=== PATIENT | female | born 1965 | race Caucasian/White ===

== ENCOUNTER 2019-09-27 11:21 | Outpatient (CLI) | payer MEDICARE, MEDICAID, SELFPAY ==
--- NOTE | 2019-09-27 | CT_ITS ---
[facility] [address] [place] [address] XRay Report Cancelled Patient: Ana Rosa Bay MR#: [id number] : 1965 Acct:[id number] Age/Sex: 54 / F ADM Date: 09/27/19 Loc: RADWPI Attending Dr: Frederick ORLANDO Ordering Physician: Date of Service: Procedure(s): Accession Number(s): Report Number: [id number] CT ABDOMEN AND PELVIS NONCONTRAST HISTORY: Adrenal nodule follow-up. TECHNIQUE: Imaging performed through the abdomen and pelvis. Coronal and sagittal reformats are submitted. All CT scans at [facility] use at least one of these dose optimization techniques: automated exposure control; mA and/or kV adjustment per patient size (includes targeted exams where dose is matched to clinical indication); or iterative reconstruction. DLP: 1031.75 mGy-cm. COMPARISON: 01/15/2019 and 08/10/2012 Lower thorax: Lung bases are clear. No hiatal hernia. Liver: Normal, no mass or intrahepatic dilatation. Gallbladder: Unremarkable. Pancreas: Normal. Spleen: Normal. Adrenal glands: Normal RIGHT adrenal gland. Nodule adjacent to the LEFT adrenal gland and spleen is probably a splenule. On prior examinations this subcentimeter nodule has been present with similar enhancement pattern of the adjacent spleen. Right kidney: Normal size with no stones, masses or atrophy. Left kidney: Normal size with no stones, mass or atrophy. Abdominal aorta and IVC are unremarkable. No free fluid, intraperitoneal air or significant lymphadenopathy. GI tract: Medicinal tablets in the region of the cecum. Scattered diverticula throughout the colon with no evidence for acute diverticulitis. The appendix is incompletely visualized but does appear normal. Abdominal wall: Fat-containing umbilical hernia. Pelvis: Prior hysterectomy. No pelvic mass. Normal urinary bladder. Osseous structures: LEFT convex curvature the lumbar spine. No osteoblastic or osteolytic bone disease. Mild narrowing of the LEFT hip joint. IMPRESSION: 1. Long-term stability of the nodule adjacent to the LEFT adrenal gland is probably a splenule. Similar enhancement pattern noted on prior studies as the adjacent spleen. 2. Diverticulosis without acute diverticulitis. Dictated By: Kaity Castellon DO Signed By: Signed Date/Time: DD/ 1504 MTDD
== END 2019-09-27 11:22 | disposition home or self-care (01) ==
PROVIDERS: Family Provider Nurse Practitioner; PCP Nurse Practitioner; Referring Provider Nurse Practitioner; Visit Provider Nurse Practitioner
DX: E27.9 Disorder of adrenal gland, unspecified (principal); K57.90 Diverticulosis of intestine, part unspecified, without perforation or abscess without bleeding
CPT/HCPCS: 74176

== ENCOUNTER → 2019-10-03 13:08 | Outpatient (BNVA) | payer MEDICARE, SELFPAY | PROVIDERS: Family Provider Nurse Practitioner; PCP Family Medicine; Visit Provider Nurse Practitioner | DX: F43.12 Post-traumatic stress disorder, chronic (principal) | CPT/HCPCS: 99213 ==

== ENCOUNTER → 2019-11-27 10:44 | Outpatient (BNVA) | payer MEDICARE, SELFPAY | PROVIDERS: Family Provider Nurse Practitioner; PCP Family Medicine; Visit Provider Nurse Practitioner | DX: F60.3 Borderline personality disorder (principal); F43.12 Post-traumatic stress disorder, chronic | CPT/HCPCS: 99213 ==

== ENCOUNTER → 2019-12-24 17:00 | Outpatient (BNVA) | payer MEDICARE, SELFPAY | PROVIDERS: Family Provider Nurse Practitioner; PCP Family Medicine; Visit Provider Nurse Practitioner | DX: R09.89 Other specified symptoms and signs involving the circulatory and respiratory systems (principal); R05 Cough; R50.9 Fever, unspecified | CPT/HCPCS: 71046; 85025; 87400 ==

== ENCOUNTER → 2020-01-01 11:20 | Outpatient (BNVA) | payer MEDICARE, SELFPAY | PROVIDERS: Family Provider Nurse Practitioner; PCP Family Medicine; Visit Provider Social Worker | DX: F60.3 Borderline personality disorder (principal); F43.12 Post-traumatic stress disorder, chronic; F33.1 Major depressive disorder, recurrent, moderate | CPT/HCPCS: 90834 ==

== ENCOUNTER → 2020-01-28 08:14 | Outpatient (BNVA) | payer MEDICARE, MEDICAID, SELFPAY | PROVIDERS: Family Provider Nurse Practitioner; PCP Family Medicine; Visit Provider Nurse Practitioner | DX: F60.3 Borderline personality disorder (principal); F43.12 Post-traumatic stress disorder, chronic | CPT/HCPCS: 99213 ==

== ENCOUNTER → 2020-01-29 08:19 | Outpatient (BNVA) | payer MEDICARE, MEDICAID, SELFPAY | PROVIDERS: Family Provider Nurse Practitioner; PCP Family Medicine; Visit Provider Social Worker | DX: F43.12 Post-traumatic stress disorder, chronic (principal); F60.3 Borderline personality disorder | CPT/HCPCS: 90834 ==

== ENCOUNTER → 2020-02-01 11:24 | Outpatient (BNVA) | payer MEDICARE, SELFPAY | PROVIDERS: Family Provider Nurse Practitioner; PCP Family Medicine; Visit Provider Nurse Practitioner | DX: R50.9 Fever, unspecified (principal); W57.XXXA Bitten or stung by nonvenomous insect and other nonvenomous arthropods, initial encounter | CPT/HCPCS: 87400 ==

== ENCOUNTER → 2020-03-03 13:38 | Outpatient (BNVA) | payer MEDICARE, MEDICAID, SELFPAY | PROVIDERS: Family Provider Nurse Practitioner; PCP Family Medicine; Visit Provider Nurse Practitioner Family | DX: N30.00 Acute cystitis without hematuria (principal); R30.9 Painful micturition, unspecified | CPT/HCPCS: 80053; 81000; 85025 ==

== ENCOUNTER → 2020-04-28 08:32 | Outpatient (BNVA) | payer MEDICARE, SELFPAY | PROVIDERS: Family Provider Nurse Practitioner; PCP Family Medicine; Visit Provider Nurse Practitioner | DX: F60.3 Borderline personality disorder (principal); F43.12 Post-traumatic stress disorder, chronic | CPT/HCPCS: 99213 ==

== ENCOUNTER 2020-05-05 13:16 | Outpatient (CLI) | payer MEDICARE, SELFPAY ==
--- NOTE | 2020-05-05 13:36 | XRR_ITS ---
PROCEDURE INFORMATION: Exam: XR Abdomen, 1 View Exam date and time: 05/05/2020 1:36 PM Age: 54 years old Clinical indication: Condition or disease; Other: Stones TECHNIQUE: Imaging protocol: XR of the abdomen. Views: Frontal supine view of the abdomen. 1 View. COMPARISON: CT abdomen pelvis con [id number] 09/27/2019 12:06 PM FINDINGS: Gastrointestinal tract: Normal. No bowel dilation. Bones/joints: Unremarkable. There are multiple calcifications in the pelvis likely representing calcified phleboliths. XR/XR KUB [id number] IMPRESSION: No acute findings.
== END 2020-05-05 13:17 | disposition home or self-care (01) ==
LOC: RAD 13:20
PROVIDERS: PCP Nurse Practitioner; Visit Provider Urology
DX: N20.9 Urinary calculus, unspecified (principal)
CPT/HCPCS: 74018; 81001

== ENCOUNTER → 2020-06-25 16:28 | Outpatient (BNVA) | payer MEDICARE, SELFPAY | PROVIDERS: PCP Nurse Practitioner; Visit Provider Internal Medicine | DX: Z01.818 Encounter for other preprocedural examination (principal); K52.9 Noninfective gastroenteritis and colitis, unspecified; Z80.0 Family history of malignant neoplasm of digestive organs; Z79.899 Other long term (current) drug therapy | CPT/HCPCS: 82784; 83516; 84443 ==

== ENCOUNTER → 2020-06-30 11:49 | Outpatient (BNVA) | payer MEDICARE, SELFPAY | PROVIDERS: PCP Nurse Practitioner; Visit Provider Internal Medicine | DX: Z11.59 Encounter for screening for other viral diseases (principal); K52.9 Noninfective gastroenteritis and colitis, unspecified | CPT/HCPCS: 87635 ==

== ENCOUNTER 2020-07-04 09:01 | Day surgery (SDC) | payer MEDICARE, SELFPAY ==
[2020-07-01 12:28] VITALS: BMI 26.2
[2020-07-04 09:18] VITALS: BP 121/68; PULSE 81; RESP 20; TEMP 36.3; O2SAT 100
--- NOTE | 2020-07-04 09:25 | ANES.PREANE2 ---
Pre-Anesthetic Assessment Pre-Anesthetic Assessment: Height/Weight: Height 1.5 m Weight 58.967 kg Temp Pulse Resp BP Pulse Ox 97.4 F L 81 20 H 121/68 100 07/04/20 09:18 07/04/20 09:18 07/04/20 09:18 07/04/20 09:18 07/04/20 09:18 Preop Diagnosis: diar Proposed Procedure: Operation Date: 07/04/20 10:00 Proposed Procedures p EGD/colon 90923 43307 K52.9(Not Applicable) - Campos Olivares MD s Colonoscopy(Not Applicable) - Campos Olivares MD Was Beta Jake taken within 24 hours: N/A Last intake: Intake Last Liquid Date 07/03/20 Last Liquid Time 21:30 Last Solid Date 07/02/20 Last Solid Time 20:00 Social: Social History: No alcohol and No tobacco Exam: Pre-Anes Outpt Exam: alert, oriented x 3, clear to auscultation bilaterally and regular rate & rhythm Airway: Submandibular: WNL Cervical ROM: WNL MP: 1 History/ROS: No significant complaints Pulmonary: Pulmonary: None reported CV/HEM: CV/HEM: None reported : : None reported Hepatic: Hepatic: None reported GI: GI: GERD Comments: Chronic diarhhea and FH of Colon CA Metabolic: Metabolic: None reported Musc/skel: Musc/skel: None reported Neuropsych: Neuropsych: Anxiety and Bipolar Anesthetic Plan: ASA status: 2 Anesthesia: MAC PFSH Anesthesia PFSH: Medical History (Updated 06/25/20 @ 13:43 by Campos Olivares MD) Borderline personality disorder Family history of colon cancer Post-traumatic stress disorder, chronic Renal calculi Voiding dysfunction Surgical History History of basal cell cancer History of History of hysterectomy History of lumbar surgery History of tonsillectomy Family History Mother Parkinson disease Social History Smoking and tobacco status: current every day smoker cigarettes Years cigarettes smoked: 20 Second hand smoke exposure: Yes Smoking risk assessment/counseling performed?: Yes Tobacco counseling given: counseling >3 minutes Alcohol intake: never Desire information about alcohol rehabilitation?: No Counseling given: No Desire information about substance/drug rehabilitation?: No Counseling given: No Caregiver/support person: No Lives independently: Yes Household members: spouse Housing: House Marital status: Number of children: 2 service: No Current occupational status: disabled Current occupational exposures/hazards: No History of recent travel: No Current gender identity: Female Data Anesthesia Cardiac Studies: No Data to Display
[2020-07-04] MEDS: sodium chloride 0.9% 1,000 ML 30 ML IV (09:36)
--- NOTE | 2020-07-04 10:33 | W.PM.OPSUD ---
Surgery/Procedure H&P Update DATE OF PROCEDURE: July 04, 2020 DATE H&P PERFORMED: 06/25/20 PREOP DIAGNOSIS: diar PLANNED PROCEDURE: Operation Date: 07/04/20 10:00 Proposed Procedures p EGD/colon [id number] 54011 K52.9(Not Applicable) - Campos Olivares MD s Colonoscopy(Not Applicable) - Campos Olivares MD
[2020-07-04 11:06] VITALS: BP 87/55; PULSE 58; RESP 16; TEMP 36.1; O2SAT 100
--- NOTE | 2020-07-04 11:09 | ANE.PACU2 ---
Inpatient post-anesthesia follow up: Airway intact: Yes Vital signs: Temperature 97 F Pulse Rate 58 Respiratory Rate 16 Blood Pressure 87/55 Pulse Oximetry 100 Oxygen Delivery Me thod Nasal Cannula Oxygen Flow Rate 3 Fraction of Inspir ed Oxygen Hydration adequate: Yes Nausea and vomiting: No Pain level: 1 Mental status: Baseline
[2020-07-04 11:24] VITALS: BP 123/79; PULSE 59; RESP 18; O2SAT 98
== END 2020-07-04 11:36 | disposition home or self-care (01) ==
PROVIDERS: PCP Nurse Practitioner; Visit Provider Internal Medicine
PROC: 0DJ08ZZ Inspection of Upper Intestinal Tract, Via Natural or Artificial Opening Endoscopic (ICD-10-PCS; CPT 43235; principal; 2020-07-04 10:00)
PROC: 0DJD8ZZ Inspection of Lower Intestinal Tract, Via Natural or Artificial Opening Endoscopic (ICD-10-PCS; CPT 45378; 2020-07-04 10:00)
DX: R19.7 Diarrhea, unspecified (principal); Z80.0 Family history of malignant neoplasm of digestive organs; K57.30 Diverticulosis of large intestine without perforation or abscess without bleeding; K21.9 Gastro-esophageal reflux disease without esophagitis; F17.210 Nicotine dependence, cigarettes, uncomplicated
CPT/HCPCS: 12345; 43235; 45378; 82274; 83630; 87493; 87506; J2704; J7030

== ENCOUNTER → 2020-07-28 07:34 | Outpatient (BNVA) | payer MEDICARE, SELFPAY | PROVIDERS: PCP Nurse Practitioner; Visit Provider Nurse Practitioner | DX: F60.3 Borderline personality disorder (principal); F43.12 Post-traumatic stress disorder, chronic | CPT/HCPCS: 99214 ==

== ENCOUNTER → 2020-08-12 13:55 | Outpatient (BNVA) | payer MEDICARE, SELFPAY | PROVIDERS: PCP Nurse Practitioner; Visit Provider Urology | DX: N39.8 Other specified disorders of urinary system (principal); N20.0 Calculus of kidney | CPT/HCPCS: 81003 ==

== ENCOUNTER → 2020-08-15 11:27 | Outpatient (BNVA) | payer MEDICARE, SELFPAY | PROVIDERS: PCP Nurse Practitioner; Visit Provider Nurse Practitioner Family | DX: Z20.828 Contact with and (suspected) exposure to other viral communicable diseases (principal); J06.9 Acute upper respiratory infection, unspecified | CPT/HCPCS: 87635 ==

== ENCOUNTER → 2020-09-01 15:40 | Outpatient (BNVA) | payer MEDICARE, SELFPAY | PROVIDERS: PCP Nurse Practitioner; Visit Provider Nurse Practitioner Family | DX: J98.8 Other specified respiratory disorders (principal); R19.7 Diarrhea, unspecified; Z20.828 Contact with and (suspected) exposure to other viral communicable diseases | CPT/HCPCS: 85025; 87635 ==

== ENCOUNTER → 2020-09-08 08:20 | Outpatient (BNVA) | payer MEDICARE, SELFPAY | PROVIDERS: PCP Nurse Practitioner; Visit Provider Nurse Practitioner | DX: F43.12 Post-traumatic stress disorder, chronic (principal); F60.3 Borderline personality disorder | CPT/HCPCS: 99213 ==

== ENCOUNTER → 2020-09-09 16:41 | Outpatient (BNVA) | payer MEDICARE, SELFPAY | PROVIDERS: PCP Nurse Practitioner; Visit Provider Nurse Practitioner | DX: R05 Cough (principal); R69 Illness, unspecified | CPT/HCPCS: 71046; 80053; 85025; 87400 ==

== ENCOUNTER → 2020-09-10 13:55 | Outpatient (BNVA) | payer MEDICARE, SELFPAY | PROVIDERS: PCP Nurse Practitioner; Visit Provider Nurse Practitioner | DX: N39.8 Other specified disorders of urinary system (principal) | CPT/HCPCS: 81000 ==

== ENCOUNTER 2020-10-21 09:06 | Outpatient (CLI) | payer MEDICARE, SELFPAY ==
--- NOTE | 2020-10-21 09:30 | MR_ITS ---
WS: [id number] MRI HEAD WITHOUT CONTRAST TECHNIQUE: Sagittal T1, T2 axial, T2 axial FLAIR, axial and coronal T1 images, axial susceptibility w eighted imaging, axial diffusion weighted images, and coronal T2 images were obtained. CLINICAL INFORMATION: R51.9 - Headache, unspecified COMPARISON: CT May 15, 2018 FINDINGS: No evidence of restricted diffusion to suggest acute ischemia. Ventricular system and basal cisterns are patent. No hemosiderin on susceptibly weighted images. Single focus of T2 hyperintensity in the l eft frontal white matter at the vertex. No other suspicious intracranial signal abnormalities. This i s of doubtful clinical significance. Normal posterior fossa. Normal vascular flow voids at the skull base. No extra axial fluid collection s. No evidence of mass or mass effect. Paranasal sinuses and mastoid air cells are well aerated. Norm al optic chiasm and pituitary infundibulum. Temporal lobes and hippocampal formations are normal in a ppearance. No other suspicious findings. MR/MR head wo con* [id number] IMPRESSION: 1. No evidence of restricted diffusion to suggest acute ischemia. 2. Single focus of T2 hyperintensity in the left frontal white matter of doubt ful clinical significance but can be seen with migraine headaches and small ves radha changes. 3. No extra-axial fluid collections. No evidence of mass or mass effect. 4. No hemosiderin on susceptibly weighted images. 5. Temporal lobes and hippocampal formations are normal in appearance.
== END 2020-10-21 09:07 | disposition home or self-care (01) ==
LOC: RADSHAW 09:09
PROVIDERS: PCP Nurse Practitioner; Visit Provider Nurse Practitioner
DX: R51.9 Headache, unspecified (principal)
CPT/HCPCS: 70551

== ENCOUNTER 2020-11-20 09:28 | Outpatient (CLI) | payer MEDICARE, SELFPAY ==
--- NOTE | 2020-11-20 10:00 | MM_ITS ---
WS: [id number] BILATERAL SCREENING DIGITAL MAMMOGRAM WITH CAD HISTORY: Z12.39 - Encounter for other screening for malignant neoplasm of breast COMPARISON: 09/05/2019 and 07/06/2018 Bilateral CC and MLO views submitted. Computer aided detection analyzed. Breast composition: There are scattered areas of fibroglandular density. No suspicious masses, microc alcifications or architectural distortion. Benign lymph nodes in the upper-outer quadrant of each tobi ast. No suspicious mass or calcification. MM/[place] [id number] IMPRESSION: BI-RADS: 2-Benign FOLLOW UP: 1 Year Follow-up
== END 2020-11-20 09:29 | disposition home or self-care (01) ==
LOC: RADSHAW 09:29
PROVIDERS: PCP Nurse Practitioner; Visit Provider Nurse Practitioner
DX: Z12.31 Encounter for screening mammogram for malignant neoplasm of breast (principal)
CPT/HCPCS: 77067

== ENCOUNTER 2020-11-22 11:26 | Emergency (ER) | payer MEDICARE, SELFPAY ==
[2020-11-22 12:04] VITALS: BP 134/84; PULSE 84; RESP 18; TEMP 36.7; O2SAT 100; BMI 24.6
[2020-11-22] MEDS: HYDROcodone-APAP 7.5-325 mg/15 mL UDC PO (12:39)
[2020-11-22] MEDS: ondansetron 4 MG Tablet PO ×2 (12:40→15:23)
[2020-11-22] MEDS: orphenadrine 30 mg/mL Inj 2 mL 60 MG IM (12:56)
--- NOTE | 2020-11-22 13:28 | W.ED.BACK ---
HPI - Back Pain/Injury General: Chief Complaint: Back Pain/Injury Stated Complaint: SEVERE BACK PAIN Time Seen by Provider: 11/22/20 12:14 History of Present Illness: MD elicited complaint: back pain Pertinent past history: prior back pain and back surgery Onset (ago): day(s) (2-3) Timing: constant and progressively worsening Severity: moderate Similar Symptoms Previously: Yes Quality: sharp, stabbing and aching Location: lumbar spine Associated symptoms: Deny abdominal pain, chills, dysuria, fever(s), nausea or vomiting Review of Systems General: Reports: 10 or more systems reviewed and unremarkable except in HPI and below Const: Denies: fever(s), chills or diaphoresis Eyes: Denies: blurry vision or eye redness ENMT: Denies: throat pain, dental pain or disequilibrium Card: Denies: chest pain, palpitations or irregular heart rhythm Resp: Denies: dyspnea, productive cough, non-productive cough or wheezing GI: Denies: abdominal pain, nausea or vomiting : Denies: difficulty voiding or dysuria Musc: Reports: back pain; Denies: neck pain, joint pain, joint stiffness, muscle cramps or muscle weakness Skin/Breast: Denies: rash or pruritus Neuro: Denies: headache(s), weakness in extremities or behavioral changes Psych: Denies: anxiety or depression Nish/Lymph: Denies: easy bruising PFSH ED PFSH: Medical History (Updated 11/22/20 @ 16:05 by CHEYENNE Avelar) Borderline personality disorder Family history of colon cancer Post-traumatic stress disorder, chronic Renal calculi Voiding dysfunction Surgical History History of basal cell cancer History of History of hysterectomy History of lumbar surgery History of tonsillectomy Family History Mother , at age 72 Parkinson disease Cancer colon Father , at age 60 Cancer brain and liver Social History Smoking and tobacco status: current every day smoker cigarettes Years cigarettes smoked: 20 Second hand smoke exposure: Yes Smoking risk assessment/counseling performed?: Yes Tobacco counseling given: counseling >3 minutes Alcohol intake: never Desire information about alcohol rehabilitation?: No Counseling given: No Desire information about substance/drug rehabilitation?: No Counseling given: No Caregiver/support person: No Lives independently: Yes Household members: spouse Housing: House Marital status: Number of children: 2 service: No Current occupational status: disabled Current occupational exposures/hazards: No History of recent travel: No Current gender identity: Female Physical Exam Const: COMMON NORMALS: no acute distress, patient oriented x3, alert and well nourished EXAM LIMITATIONS: no altered mental status and no physical limitations GENERAL APPEARANCE: cooperative, well kempt, well developed and well hydrated NUTRITIONAL APPEARANCE: thin ORIENTATION/CONSCIOUSNESS: Yes awake, Yes oriented to person, Yes oriented to place and Yes oriented to time HENMT: COMMON NORMALS: normocephalic, atraumatic, Normal external nose present and moist oral mucous membranes HEAD & SCALP: normal to inspection, normocephalic and atraumatic NOSE: Normal external nose present MOUTH: Normal oral and palatal mucosa present, lip normal and tongue normal Eye: COMMON NORMALS: Equal, round and reactive pupils present and EOMs intact bilaterally GENERAL EYE: appearance normal, both eyes and all related structures PUPIL: Yes Equal, round and reactive pupils present Neck/C-Spine: COMMON NORMALS: full ROM, no lymphadenopathy, supple and no meningeal signs GENERAL: Yes normal visual inspection and Yes trachea midline CERVICAL SPINE: Yes cervical ROM normal, No pain with cervical ROM, No Cervical spine tenderness and No Paracervical muscle tenderness Lymph: LYMPHATIC: no lymphadenopathy noted Chest: COMMONS NORMALS: normal inspection of the chest and normal palpation of entire chest wall Resp: COMMON NORMALS: normal respiratory effort, No retractions, No use of accessory muscles and clear to auscultation bilaterally EFFORT & INSPECTION: Yes able to speak in complete sentences AUSCULTATION: clear to auscultation bilaterally Cardio: COMMON NORMALS: regular rate, regular rhythm, S1 normal heart sound present, S2 normal heart sound present and Peripheral pulses 2+ throughout RATE: regular rate RHYTHM: regular rhythm HEART SOUNDS: S1 normal heart sound present and S2 normal heart sound present PERIPHERAL PULSES: Peripheral pulses 2+ throughout GI: COMMON NORMALS: Normal to inspection, nondistended, normoactive bowel sounds present, Soft to palpation and non-tender INSPECTION: Yes normal to inspection PALPATION: Yes Soft to palpation : COMMON NORMALS: Yes no CVA tenderness BLADDER/KIDNEY EXAM: Yes no CVA tenderness Back/Pelvis: COMMON NORMALS: no CVA tenderness THORACIC SPINE/UPPER BACK: Yes normal to inspection, Yes thoracic ROM normal, No thoracic spinal tenderness, No paraspinal muscle tenderness and No paraspinal muscle spasm LUMBAR SPINE/LOWER BACK: No lumbar ROM normal, Yes ROM limited, Yes pain with ROM, No lumbar spinal tenderness, Yes paraspinal muscle tenderness Lumbar paraspinal muscle tenderness: bilateral Bilateral lumbar paraspinal muscle tenderness: L3, L4 and L5, Yes straight leg raise positive left and Yes bend over test abnormal PELVIS: Yes buttocks normal and Yes no pain with anterior-posterior compression SACROILIAC JOINTS: Yes SI joints normal Extremity: COMMON NORMALS: normal to inspection and capillary refill normal Neuro: COMMON NORMALS: patient oriented x3 and no focal motor deficits SENSORIUM/ORIENTATION: Yes alert, Yes oriented to person, Yes oriented to place and Yes oriented to time MENINGEAL SIGNS: Yes no meningeal signs SPEECH: speech normal GAIT: Yes Shuffling gait present (due to reproduced pain to the lumbar spine) MONOFILAMENT EXAM PERFORMED: Yes Monofilament Exam (small fiber function): L great toe: decreased, L 3rd toe: decreased, L 5th toe: decreased, R great toe: normal, R 3rd toe: normal and R 5th toe: normal MOTOR EXAM: Pronator motor function not present, no tremor noted and Abnormal motor strength present (3/5 LLE; 4/5 RLE) Psych: COMMON NORMALS: mental status grossly normal, Normal thought process present and cooperative APPEARANCE: Yes well kempt ACTIVITY/MOTOR BEHAVIOR: Yes appropriate eye contact THOUGHT PROCESS: Normal thought process present Skin: COMMON NORMALS: no rashes or lesions noted and turgor normal GENERAL SKIN EXAM: no rashes or lesions noted and turgor normal Course Vital Signs: Vital signs: Vital Signs Temperature 98.1 F 11/22/20 12:04 Pulse Rate 69 11/22/20 16:42 Respiratory Rate 18 11/22/20 16:42 Blood Pressure 122/82 11/22/20 16:42 Pulse Oximetry 100 11/22/20 12:04 MDM - Back Pain/Injury MDM Narrative: Medical decision making narrative: 55-year-old female patient presents to the emergency department with low back pain after lifting laundry basket working out in the yard past several days. Patient was medicated with hydrocodone and Zofran as pain was out of proportion, need for differential of cauda equina, she hurt all over. Discussed with Dr. Chacon findings with question need for MRI lumbar spine. She completed examination of the lumbar spine with recommendation to medicate for pain and reevaluate. Reevaluation with improvement of pain, patient was able to ambulate and apply pressure to soles of her feet with steady gait. Strength of 5/5 BLE, soft tissue tenderness markedly improved. She remained with midline tenderness. CT scan of the lumbar spine revealed diffuse disc bulge of L4-L5 with superimposed left paracentral disc protrusion with mild central canal narrowing. Patient received Norflex IM here in the ED which also helped pain. I discussed with patient findings of CT scan, she reports would like to hold off on MRI and follow-up with her primary care provider to see if it is needed. She suffers from chronic back pain with previous surgery. Urinalysis without urinary tract infection. Will place on prednisone, muscle relaxer and Lidoderm patch. Lidoderm patch was provided here in the ED which patient reports significant improvement of pain. Differential Diagnosis: Differential diagnosis back pain/injury: Likely lumbar radiculopathy, sciatica and strain of lumbar region Lab Data: Labs: Lab Results 11/22/20 Range/Units 13:40 Urine Color Yellow (Yellow) Urine Appearance Clear (CLEAR) Urine pH 5 (5-7) Ur Specific Gravit y 1.015 (1.005-1.030) Urine Protein Neg (Negative) Urine Glucose (UA) Norm (Normal) Urine Ketones Negative (Negative) Urine Blood Neg (Negative) Urine Nitrate Negative (Negative) Urine Bilirubin Neg (Negative) Urine Urobilinogen Norm (Negative) mg/dL Ur Leukocyte Tabby ase Negative (Negative) Imaging Data^: Other Imaging: Radiologist's impression: [facility] [address] [place] [address] CT Scan Report Signed Patient: Ana Rosa Bay Unit #: [id number] : 1965 Age/Sex: 55 / F ADM Date: 11/22/20 Loc: ER Room/Bed: Attending Dr: Ordering Provider/Ordering MD: Tammie Motley Date of Service: 11/22/20 Procedure(s): CT lumbar spine wo con* [id number] Accession Number(s): [id number] Report Number: [id number] PROCEDURE INFORMATION: Exam: CT Lumbar Spine Without Contrast Exam date and time: 11/22/2020 1:59 PM Age: 55 years old Clinical indication: Low back pain. Possible prior microdiscectomy. Complains of low back pain after bending to sisal picker laundry. Radiculopathy. TECHNIQUE: Imaging protocol: Computed tomography images of the lumbar spine without contrast. Radiation optimization: All CT scans at this facility use at least one of these dose optimization techniques: automated exposure control; mA and/or kV adjustment per patient size (includes targeted exams where dose is matched to clinical indication); or iterative reconstruction. COMPARISON: CR Lumbar Spine 2-3 views* [id number] 12/04/2018 11:37 AM RADIATION DOSE METRICS: Total DLP (mGy-cm): 1455.43 FINDINGS: There is a small rib on the left at L1. The lumbar lordosis is maintained. No acute fracture is seen. At L1-L2, the central spinal canal and neural foramina are adequately patent. At L2-L3, there is a diffuse disc bulge without significant central spinal canal narrowing. The neural foramina are adequately patent. At L3-L4, there is a diffuse disc bulge without significant central spinal canal narrowing. The neural foramina are adequately patent. At L4-L5, there is a diffuse disc bulge with superimposed left paracentral disc protrusion. There is mild central spinal canal narrowing (0.9 cm). The neural foramina are adequately patent. There is probable effacement of the left lateral recess. At L5-S1, there is a diffuse disc bulge without significant central spinal canal narrowing. The neural foramina are adequately patent. Colonic diverticulosis is seen CT/CT lumbar spine wo con* [id number] IMPRESSION: 1. There is a diffuse disc bulge at L4-L5 with superimposed left paracentral disc protrusion. There is mild central spinal canal narrowing (0.9 cm). There is probable effacement of the left lateral recess. Consider MRI for better characterization if clinically warranted. 2. No acute fracture is seen. 3. Colonic diverticulosis without evidence of acute diverticulitis. Radiation Dose CTDIVOL = (mGy): DLP = 1455.43 (mGy-cm) Dictated By: Juanjo Chavez Signed By: Juanjo Chavez Signed Date/Time: 11/22/201435 DD/ Discharge Plan Discharge Patient Disposition: Home Clinical Impression: Bulging of intervertebral disc between L4 and L5 Lumbosacral strain Qualifiers: Encounter type: initial encounter Qualified Code(s): S39.012A - Strain of muscle, fascia and tendon of lower back, initial encounter Low back strain Qualifiers: Encounter type: initial encounter Qualified Code(s): S39.012A - Strain of muscle, fascia and tendon of lower back, initial encounter Condition: Stable Prescriptions: New Lidoderm 5 % adhesive patch,medicated 1 patch topical BID PRN (Reason: back pain) Qty: 30 RF: 0 Robaxin-750 750 mg tablet 750 mg PO QID Qty: 20 RF: 0 prednisone 20 mg tablet 20 mg PO BID 5 Days Qty: 10 RF: 0 No Action cholecalciferol (vitamin D3) 1,250 mcg (50,000 unit) capsule 50,000 unit PO DAILY@0800 RF: 0 albuterol sulfate 2.5 mg/0.5 mL solution for nebulization 10 mg INHALATION Q4H PRN (Reason: Allergy Symptoms) RF: 0 sumatriptan [Imitrex] 5 mg/actuation spray,non-aerosol 20 mg INTRANASAL Q2H PRN (Reason: headaches) RF: 0 diazepam [Valium] 5 mg tablet 5 mg PO TID PRN (Reason: anxiety) Qty: 75 RF: 2 Flovent HFA 110 mcg/actuation HFA aerosol inhaler 2 puff inhalation BID Qty: 12 RF: 2 cyproheptadine 4 mg tablet 4 mg PO BEDTIME@2129 RF: 0 prazosin 5 mg capsule 5 mg PO BEDTIME@2129 RF: 0 trazodone 100 mg tablet 100 mg PO BEDTIME@2129 RF: 0 Nasonex 50 mcg/actuation spray,non-aerosol 2 spray intranasal DAILY@0800 RF: 0 propranolol 20 mg tablet 20 mg PO BID@899,2129 RF: 0 Topamax 100 mg tablet 100 mg PO BID@899,2129 RF: 0 Abilify 30 mg tablet 30 mg PO DAILY@0800 RF: 0 Cymbalta 60 mg capsule,delayed release(DR/EC) 60 mg PO DAILY@2130 RF: 0 Adult 50 Plus Probiotic 4 billion cell capsule 4,000 mmu cells PO DAILY@0800 RF: 0 Discharge Orders: Discharge ED (Routine); Ordered 11/22/20 Ordered By: Tammie Motley Referrals: Frederick Stark, [employer] [Primary Care Provider] - Discharge Diet: Usual diet Discharge Activity: Limit activity as instructed Patient Instructions: Muscle Strain (ED), Low Back Strain (ED), Acute Low Back Pain (ED), Lumbar Radiculopathy (ED), Opioid Safety Activity Restrictions/Additional Instructions: Alternate warm moist heat with cool compresses to the lower back to help with pain Do not drive or operate heavy machinery with use of Robaxin as drowsiness can occur Outpatient MRI will be ordered for you, social contact worker will contact you with an appointment time and date for MRI Return to the emergency department if you develop inability to urinate or produce bowel movement, or if urinary or bowel incontinence occurs You will need to take it easy over the next several days, back pain can last 3 to 4 weeks. Absolutely no twisting bending at the waist, no heavy lifting greater than 5 pounds or other activities that will exacerbate back pain. Take 2 extra strength Tylenol 3 times daily, 1000 mg, as needed for pain Coding Level of Care Code ED Inspector [employer] 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
--- NOTE | 2020-11-22 13:51 | CTR_ITS ---
PROCEDURE INFORMATION: Exam: CT Lumbar Spine Without Contrast Exam date and time: 11/22/2020 1:59 PM Age: 55 years old Clinical indication: Low back pain. Possible prior microdiscectomy. 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 Radiculopathy. TECHNIQUE: Imaging protocol: Computed tomography images of the lumbar spine without contrast. Radiation optimization: All CT scans at this facility use at least one of these dose optimization techniques: automated exposure control; mA and/or kV adjustment per patient size (includes targeted exams where dose is matched to clinical indication); or iterative reconstruction. COMPARISON: Lumbar Spine 2-3 views* [id number] 12/04/2018 11:37 AM RADIATION DOSE METRICS: Total DLP (mGy-cm): 1455.43 FINDINGS: There is a small rib on the left at L1. The lumbar lordosis is maintained. No acute fracture is seen. At L1-L2, the central spinal canal and neural foramina are adequately patent. At L2-L3, there is a diffuse disc bulge without significant central spinal canal narrowing. The neural foramina are adequately patent. At L3-L4, there is a diffuse disc bulge without significant central spinal canal narrowing. The neural foramina are adequately patent. At L4-L5, there is a diffuse disc bulge with superimposed left paracentral disc protrusion. There is mild central spinal canal narrowing (0.9 cm). The neural foramina are adequately patent. There is probable effacement of the left lateral recess. At L5-S1, there is a diffuse disc bulge without significant central spinal canal narrowing. The neural foramina are adequately patent. Colonic diverticulosis is seen CT/CT lumbar spine wo con* [id number] IMPRESSION: 1. There is a diffuse disc bulge at L4-L5 with superimposed left paracentral disc protrusion. There is mild central spinal canal narrowing (0.9 cm). There is probable effacement of the left lateral recess. Consider MRI for better characterization if clinically warranted. 2. No acute fracture is seen. 3. Colonic diverticulosis without evidence of acute diverticulitis. Radiation Dose CTDIVOL = (mGy): DLP = 1455.43 (mGy-cm)
[2020-11-22] MEDS: lidocaine 5% Patch 1 PATCH TOPICAL (15:20)
[2020-11-22 15:35] LABS: Add Urine Microscopic? NO
[2020-11-22 15:37] LABS: Bilirubin Urine Neg (Negative); Blood Urine Neg (Negative); Glucose Urine UA Norm (Normal); Ketones Urine Negative (Negative); Leukocyte Esterase Urine Negative (Negative); Nitrate Urine Negative (Negative); Protein Urine Neg (Negative); Specific Gravity, Urine 1.015 (1.005-1.030); Urine Appearance Clear (CLEAR); Urine Color Yellow (Yellow); Urobilinogen Urine Norm (Negative); pH Urine 5 (5-7)
[2020-11-22 16:42] VITALS: BP 122/82; PULSE 69; RESP 18
--- NOTE | 2020-11-24 14:35 | DCPLANNER ---
systems engineering manager had message to schedule an outpatient MRI for patient. systems engineering manager faxed signed order to centralized scheduling, will call for appointment information.
--- NOTE | 2020-11-26 14:11 | DCPLANNER ---
Patient had an outpatient MRI scheduled - appointment was cancelled due to patient wanting to see primary care physician.
== END 2020-11-22 16:45 | disposition home or self-care (01) ==
PROVIDERS: Emergency Provider Nurse Practitioner Family; PCP Nurse Practitioner
DX: S39.012A Strain of muscle, fascia and tendon of lower back, initial encounter (principal); M51.26 Other intervertebral disc displacement, lumbar region; F17.210 Nicotine dependence, cigarettes, uncomplicated; X58.XXXA Exposure to other specified factors, initial encounter
CPT/HCPCS: 72131; 81003; 96372; 99283; J2360; Q0162

== ENCOUNTER → 2020-12-02 07:49 | Outpatient (BNVA) | payer MEDICARE, SELFPAY | PROVIDERS: PCP Nurse Practitioner; Visit Provider Nurse Practitioner | DX: F43.12 Post-traumatic stress disorder, chronic (principal); F60.3 Borderline personality disorder | CPT/HCPCS: 99214 ==

== ENCOUNTER 2021-01-06 13:00 | Outpatient (CLI) | payer MEDICARE, SELFPAY ==
--- NOTE | 2021-01-06 13:13 | MR_ITS ---
WS: [id number] MRI LUMBAR SPINE NONCONTRAST TECHNIQUE: Sagittal T1, T2 and STIR imaging. Axial T1 and T2 imaging. CLINICAL INFORMATION: INTERVERTEBRAL DISC DISORDERS WITH RADICULOPATHY COMPARISON: CT November 22, 2020 FINDINGS: Mild lumbar curve. No acute compression. No high-grade central canal stenosis. Disc bulging worse L4- 5. L1-L2: Normal. L2-L3: Normal. L3-L4: No significant disc bulging. Mild facet arthropathy. Spinal canal and foramen are patent. L4-L5: Mild annular bulging with a small left subarticular disc protrusion. This impinges the andrey ing left L5 nerve root in the subarticular recess. Mild central canal stenosis. Mild left and no sign ificant right foraminal narrowing. Moderate facet arthropathy. L5-S1: Mild annular bulging with slight effacement of ventral thecal sac. Tapering of the thecal sac distally. Mild facet arthropathy. Spinal canal and foramen are patent. Visualized pelvic bony structures: Normal. Paravertebral soft tissues: Normal. MR/MR lumbar spine wo con* [id number] IMPRESSION: 1. Mild lumbar curve. No acute compression. No high-grade central canal stenos is. 2. Small left subarticular disc protrusion L4-5 impinges the left subarticular recess and traversing left L5 nerve root. Mild central canal stenosis. Mild le ft L4-5 foraminal narrowing. 3. Slight annular bulging L5-S1 with slight effacement of ventral thecal sac. 4. Mild facet arthropathy L3-L4 L4-L5. 5. No other significant findings.
== END 2021-01-06 13:01 | disposition home or self-care (01) ==
PROVIDERS: PCP Nurse Practitioner; Visit Provider Nurse Practitioner
DX: M51.16 Intervertebral disc disorders with radiculopathy, lumbar region (principal); M51.26 Other intervertebral disc displacement, lumbar region; M47.816 Spondylosis without myelopathy or radiculopathy, lumbar region
CPT/HCPCS: 72148

== ENCOUNTER → 2021-02-10 15:03 | Outpatient (BNVA) | payer SELFPAY | PROVIDERS: PCP Nurse Practitioner; Visit Provider Nurse Practitioner | DX: J45.909 Unspecified asthma, uncomplicated (principal) | CPT/HCPCS: 71046; 80053; 81000; 85025 ==

== ENCOUNTER → 2021-02-18 13:23 | Outpatient (BNVA) | payer MEDICARE, SELFPAY | PROVIDERS: PCP Nurse Practitioner; Visit Provider Nurse Practitioner | DX: M79.605 Pain in left leg (principal) | CPT/HCPCS: 73562; 73590 ==

== ENCOUNTER → 2021-03-02 10:47 | Outpatient (BNVA) | payer MEDICARE, SELFPAY | PROVIDERS: PCP Nurse Practitioner; Visit Provider Nurse Practitioner | DX: F43.12 Post-traumatic stress disorder, chronic (principal); F60.3 Borderline personality disorder | CPT/HCPCS: 99214 ==

== ENCOUNTER → 2021-04-01 15:55 | Outpatient (BNVA) | payer MEDICARE, SELFPAY | PROVIDERS: PCP Nurse Practitioner; Visit Provider Nurse Practitioner Family | DX: R19.7 Diarrhea, unspecified (principal); Z11.52 Encounter for screening for COVID-19; R50.9 Fever, unspecified | CPT/HCPCS: 80053; 85025; 87635 ==

== ENCOUNTER → 2021-04-02 11:04 | Outpatient (BNVA) | payer MEDICARE, SELFPAY | PROVIDERS: PCP Nurse Practitioner; Visit Provider Nurse Practitioner Family | DX: R19.7 Diarrhea, unspecified (principal); R50.9 Fever, unspecified | CPT/HCPCS: 87506 ==

== ENCOUNTER → 2021-04-09 11:12 | Outpatient (BNVA) | payer MEDICARE, SELFPAY | PROVIDERS: PCP Nurse Practitioner; Visit Provider Nurse Practitioner | DX: K58.0 Irritable bowel syndrome with diarrhea (principal) | CPT/HCPCS: 87506 ==

== ENCOUNTER → 2021-04-15 10:31 | Outpatient (BNVA) | payer MEDICARE, SELFPAY | PROVIDERS: PCP Nurse Practitioner; Visit Provider Nurse Practitioner Family | DX: Z20.822 Contact with and (suspected) exposure to COVID-19 (principal); J06.9 Acute upper respiratory infection, unspecified | CPT/HCPCS: 87635 ==

== ENCOUNTER → 2021-05-12 07:30 | Outpatient (BNVA) | payer MEDICARE, SELFPAY | PROVIDERS: PCP Nurse Practitioner; Visit Provider Nurse Practitioner | DX: F43.12 Post-traumatic stress disorder, chronic (principal); F60.3 Borderline personality disorder; R51.9 Headache, unspecified; G89.29 Other chronic pain | CPT/HCPCS: 99214 ==

== ENCOUNTER 2021-06-02 08:07 | Outpatient (CLI) | payer MEDICARE, SELFPAY ==
--- NOTE | 2021-06-02 08:30 | MM_ITS ---
WS: [id number] DIAGNOSTIC RIGHT DIGITAL MAMMOGRAM WITH CAD RIGHT breast ultrasound, limited HISTORY: N64.4 - Mastodynia, new pain RIGHT upper outer quadrant. No palpable area. COMPARISON: 11/20/2020, 08/26/2019 and 07/06/2018 Technique: CC, MLO and ML views. Spot compression RIGHT MLO and cc. Spot RIGHT MLO. Breast composition: There are scattered areas of fibroglandular density. Asymmetry in the upper-oute r quadrant of the RIGHT breast is stable. No interval change. Ultrasound will be performed in the are a of pain. RIGHT breast ultrasound, limited. Ultrasound is directed to the upper outer quadrant and the axillary tail in the area of pain. There are no masses or nodules or lymphadenopathy identified. Normal ultrasound. MM/[place] [id number] IMPRESSION: BI-RADS: 2-Benign FOLLOW UP: 1 Year Follow-up
--- NOTE | 2021-06-02 08:45 | US_ITS ---
WS: [id number] DIAGNOSTIC RIGHT DIGITAL MAMMOGRAM WITH CAD RIGHT breast ultrasound, limited HISTORY: N64.4 - Mastodynia, new pain RIGHT upper outer quadrant. No palpable area. COMPARISON: 11/20/2020, 08/26/2019 and 07/06/2018 Technique: CC, MLO and ML views. Spot compression RIGHT MLO and cc. Spot RIGHT MLO. Breast composition: There are scattered areas of fibroglandular density. Asymmetry in the upper-oute r quadrant of the RIGHT breast is stable. No interval change. Ultrasound will be performed in the are a of pain. RIGHT breast ultrasound, limited. Ultrasound is directed to the upper outer quadrant and the axillary tail in the area of pain. There are no masses or nodules or lymphadenopathy identified. Normal ultrasound. US/US breast RT limited* [id number] IMPRESSION: BI-RADS: 2-Benign FOLLOW UP: 1 Year Follow-up
== END 2021-06-02 08:08 | disposition home or self-care (01) ==
LOC: RADSHAW 08:11
PROVIDERS: PCP Nurse Practitioner; Visit Provider Nurse Practitioner
DX: N64.4 Mastodynia (principal)
CPT/HCPCS: 76642; 77065

== ENCOUNTER 2021-07-02 07:58 | Outpatient (CLI) | payer MEDICARE, SELFPAY ==
--- NOTE | 2021-07-02 09:45 | XR_ITS ---
WS: [id number] XR KUB [id number] REASON FOR EXAM: RENAL CALCULI FINDINGS: No urinary tract calculi are identified. (No urinary tract calculi on CT scan of 09/27/2019) Large number phleboliths in the pelvis predominating on the right. No other significant abnormality of the abdomen or pelvis. XR/XR KUB [id number] IMPRESSION: No urinary tract calculi.
== END 2021-07-02 07:59 | disposition home or self-care (01) ==
PROVIDERS: PCP Nurse Practitioner; Visit Provider Urology
DX: N20.0 Calculus of kidney (principal)
CPT/HCPCS: 74018; 81003

== ENCOUNTER 2021-08-12 | Outpatient (CLI) | payer MEDICARE, SELFPAY | END 2021-08-12 00:01 | disposition home or self-care (01) | LOC: RAD 03-23 09:47 | PROVIDERS: PCP Nurse Practitioner; Visit Provider Urology | DX: F43.12 Post-traumatic stress disorder, chronic (principal); F60.3 Borderline personality disorder; R51.9 Headache, unspecified; G89.29 Other chronic pain; N20.0 Calculus of kidney | CPT/HCPCS: 99214 ==

== ENCOUNTER → 2021-09-17 14:29 | Outpatient (BNVA) | payer MEDICARE, SELFPAY | PROVIDERS: PCP Nurse Practitioner; Visit Provider Nurse Practitioner Family | DX: Z20.822 Contact with and (suspected) exposure to COVID-19 (principal); R50.9 Fever, unspecified; R05.9 Cough, unspecified; R06.00 Dyspnea, unspecified; R53.83 Other fatigue; J02.9 Acute pharyngitis, unspecified; R19.7 Diarrhea, unspecified | CPT/HCPCS: 87635 ==

== ENCOUNTER → 2021-10-06 07:45 | Outpatient (BNVA) | payer MEDICARE, SELFPAY | PROVIDERS: PCP Nurse Practitioner; Visit Provider Nurse Practitioner | DX: F43.12 Post-traumatic stress disorder, chronic (principal); F60.3 Borderline personality disorder; R51.9 Headache, unspecified; G89.29 Other chronic pain | CPT/HCPCS: 99214 ==

== ENCOUNTER → 2021-11-17 11:21 | Outpatient (BNVA) | payer MEDICARE, SELFPAY | PROVIDERS: PCP Nurse Practitioner; Visit Provider Nurse Practitioner Family | DX: R50.9 Fever, unspecified (principal); Z20.822 Contact with and (suspected) exposure to COVID-19 | CPT/HCPCS: 87635 ==

== ENCOUNTER → 2021-12-01 07:30 | Outpatient (BNVA) | payer MEDICARE, SELFPAY | PROVIDERS: PCP Nurse Practitioner; Visit Provider Nurse Practitioner | DX: F43.12 Post-traumatic stress disorder, chronic (principal); F60.3 Borderline personality disorder; R51.9 Headache, unspecified; G89.29 Other chronic pain | CPT/HCPCS: 99214 ==

== ENCOUNTER → 2021-12-18 09:03 | Outpatient (BNVA) | payer MEDICARE, SELFPAY | PROVIDERS: PCP Nurse Practitioner; Visit Provider Nurse Practitioner | DX: M79.7 Fibromyalgia (principal); E55.9 Vitamin D deficiency, unspecified; Z13.6 Encounter for screening for cardiovascular disorders | CPT/HCPCS: 80053; 80061; 82306; 82607; 83735; 84443; 85025; 85651; 86140 ==

== ENCOUNTER → 2021-12-29 07:42 | Outpatient (BNVA) | payer MEDICARE, SELFPAY | PROVIDERS: PCP Nurse Practitioner; Visit Provider Nurse Practitioner | DX: F43.12 Post-traumatic stress disorder, chronic (principal); F60.3 Borderline personality disorder; R51.9 Headache, unspecified; G89.29 Other chronic pain | CPT/HCPCS: 99214 ==

== ENCOUNTER 2022-01-02 09:21 | Emergency (ER) | payer MEDICARE, SELFPAY ==
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
[2022-01-02 09:43] VITALS: BP 140/89; PULSE 66; RESP 16; TEMP 37.1; O2SAT 100; BMI 26.2
[2022-01-02 10:44] VITALS: RESP 16
[2022-01-02 11:04] VITALS: BP 137/68; PULSE 55; RESP 16; O2SAT 97
== END 2022-01-02 11:05 | disposition home or self-care (01) ==
PROVIDERS: Emergency Provider Physician Assistant; PCP Nurse Practitioner
DX: S60.221A Contusion of right hand, initial encounter (principal); W23.1XXA Caught, crushed, jammed, or pinched between stationary objects, initial encounter; F17.210 Nicotine dependence, cigarettes, uncomplicated
CPT/HCPCS: 73130; 99281

== ENCOUNTER 2022-01-12 09:42 | Emergency (ER) | payer MEDICARE, SELFPAY ==
[2022-01-12 09:57] VITALS: BP 165/79; PULSE 57; RESP 18; TEMP 36.8; O2SAT 97; BMI 27.2
--- NOTE | 2022-01-12 10:03 | XR_ITS ---
WS: [id number] Exam: XR chest 1V portable [id number] Date/Time of Exam: 01/12/2022 10:25 AM Reason For Exam: chest pain Comparison 02/10/2021. Findings: The lungs are clear and fully expanded. Costophrenic angles are sharp. No infiltrates. Bronchovascula r relief appears normal. Cardiac silhouette is unremarkable. Bony elements are intact. XR/XR chest 1V portable [id number] IMPRESSION: Unremarkable chest radiograph.
--- NOTE | 2022-01-12 10:03 | ECG_ITS ---
[facility] Test Date: 2022-01-12 Pat Name: Ana Rosa Bay Department: Room: Gender: Female Rn New Grad: : 1965 Requested By: Ky Holliday Order Number: [id number] Kaitlin MD: Melvin Cardona M.D. Measurements Intervals [place] Rate: 55 P: 15 CO: 152 QRS: 30 QRSD: 97 T: 35 QT: 452 QTc: 433 Interpretive Statements SINUS BRADYCARDIA Compared to ECG 07/06/2019 12:50:36 Sinus rhythm no longer present Electronically Signed On 01-12-2022 18:54:58 CDT by Melvin Cardona M.D. [id number]
[2022-01-12 10:24] LABS: Basophils # 0.1 10^3/uL (0.0-0.1); Basophils % 1.2 %; Eosinophils # 0.1 10^3/uL (0.0-0.8); Eosinophils % 1.4 %; Hematocrit 41.5 % (37.0-47.0); Hemoglobin 13.4 g/dL (11.5-15.3); Lymphocytes # 1.9 10^3/uL (0.8-4.8); Lymphocytes % 37.3 %; Mean Corpuscular HGB Conc 32.3 g/dL (30.0-36.0); Mean Corpuscular Hemoglobin 30.2 pg (28.0-34.0); Mean Corpuscular Volume 93.5 fl (81-99); Monocytes # 0.3 10^3/uL (0.2-0.9); Monocytes % 5.8 %; Neutrophils # 2.71 10^3/uL (1.8-7.7); Neutrophils % 54.1 %; Nucleated Red Blood Cells % 0 %; Platelet Count 228 10^3/cmm (130-400); Red Blood Count 4.44 10^6/uL (4.1-5.3)
[2022-01-12] MEDS: aspirin 81 mg Chew Tablet 324 MG PO (10:27)
--- NOTE | 2022-01-12 10:32 | ED_ITS ---
HPI - Chest Pain General: Chief Complaint: Chest Pain Stated Complaint: CHEST PAIN Time Seen by Provider: 01/12/22 10:03 Source: patient Mode of arrival: ambulatory Limitations: no limitations History of Present Illness: 48-year-old female presents emergency room with complaints of chest discomfort and generally not feeling well for the last 3 to 4 days. She has some discomfort into the lower neck or back as well. she told the nurse to begin around 4:00 this morning. In talking to her she is actually had this for about 4 days now. She relates that she has fibromyalgia she is generally not been feeling well has generalized aches and pains it progressed to the point of having some back discomfort and then began having some anterior chest discomfort who later developed the neck and arm symptoms there is nothing seems to precipitate or relieve her symptoms she does smoke she has no known his tory of coronary artery disease she is not diabetic. No associated shortness of breath or nausea. Patient states she had increasing heartburn she lays down the symptoms get worse. MD complaint: chest pain Onset (ago): hour(s) Timing of current episode: episodic Onset: during rest Pain location: substernal Relieving factors: nothing Exacerbating factors: nothing Associated symptoms: Deny abdominal pain, diaphoresis, dyspnea, fever(s), leg edema, nausea, palpitations, sense of impending doom, syncope or vomiting Treatment prior to arrival: none Review of Systems Const: Denies: fever(s), chills or diaphoresis ENMT: Denies: throat pain, ear or mastoid pain, nasal discharge or nasal congestion Card: Reports: chest pain; Denies: palpitations, edema or syncope Resp: Denies: dyspnea GI: Denies: abdominal pain, nausea or vomiting : Denies: flank pain, difficulty voiding, dysuria, urinary frequency or urinary urgency Skin/Breast: Denies: rash or pruritus PFSH ED PFSH: Medical History Borderline personality disorder Family history of colon cancer History of nonmelanoma skin cancer Neurogenic bladder Post-traumatic stress disorder, chronic Psychiatric care Renal calculi Voiding dysfunction Surgical History History of basal cell cancer History of History of hysterectomy History of lumbar surgery History of tonsillectomy Family History Mother , at age 72 Parkinson disease Cancer colon Father , at age 60 Cancer brain and liver Social History Smoking and tobacco status: current every day smoker cigarettes Years cigarettes smoked: 20 Second hand smoke exposure: Yes Smoking risk assessment/counseling performed?: Yes Tobacco counseling given: counseling >3 minutes Alcohol intake: never Desire information about alcohol rehabilitation?: No Counseling given: No Desire information about substance/drug rehabilitation?: No Counseling given: No Caregiver/support person: No Lives independently: Yes Household members: spouse Housing: House Marital status: Number of children: 2 service: No Current occupational status: disabled Current occupational exposures/hazards: No History of recent travel: No Current gender identity: Female Physical Exam Const: COMMON NORMALS: no acute distress GENERAL APPEARANCE: cooperative and comfortable ORIENTATION/CONSCIOUSNESS: Yes awake, Yes oriented to person, Yes oriented to place and Yes oriented to time HENMT: COMMON NORMALS: normocephalic, atraumatic and hearing grossly normal bilaterally HEAD & SCALP: normocephalic and atraumatic Neck/C-Spine: COMMON NORMALS: no JVD Resp: COMMON NORMALS: normal respiratory effort, No retractions, No use of accessory muscles and clear to auscultation bilaterally AUSCULTATION: clear to auscultation bilaterally Cardio: COMMON NORMALS: no JVD, regular rate, regular rhythm and No murmurs present (Cardio) RATE: regular rate RHYTHM: regular rhythm GI: COMMON NORMALS: Soft to palpation and No hepatosplenomegaly present AUSCULTATION: Yes normoactive bowel sounds PALPATION: Yes Soft to palpation, No Tenderness to palpation present (GI), No Guarding due to palpation present (GI) and Yes No hepatosplenomegaly present Extremity: COMMON NORMALS: normal to inspection, capillary refill normal, no clubbing, cyanosis or edema, no calf tenderness and no pedal edema Neuro: SENSORIUM/ORIENTATION: Yes oriented to person, Yes oriented to place and Yes oriented to time Skin: COMMON NORMALS: no rashes or lesions noted GENERAL SKIN EXAM: no rashes or lesions noted Course Vital Signs: Vital signs: Vital Signs Temperature 98.2 F 01/12/22 09:57 Pulse Rate 55 L 01/12/22 11:52 Respiratory Rate 16 01/12/22 11:52 Blood Pressure 139/64 01/12/22 11:52 Pulse Oximetry 95 01/12/22 11:52 MDM - Chest Pain Medical Decision Making Symptoms greater than 3 days first troponin and EKG are unremarkable. We will go and discharge patient home started on increased dose of pantoprazole and still Carafate set her up for outpatient stress test. Return if she has further problems. Medical Records I reviewed the patient's medical records. Lab Data I reviewed the patient's lab results. : 01/12/22 10:10 01/12/22 10:10 Radiology Impressions Chest X-Ray 01/12/22 10:03 IMPRESSION: Unremarkable chest radiograph. Laboratory Results WBC 5.0 10^3/uL (4.0-10.0) 01/12/22 10:10 RBC 4.44 10^6/uL (4.1-5.3) 01/12/22 10:10 Hgb 13.4 g/dL (11.5-15.3) 01/12/22 10:10 Hct 41.5 % (37.0-47.0) 01/12/22 10:10 MCV 93.5 fl (81-99) 01/12/22 10:10 MCH 30.2 pg (28.0-34.0) 01/12/22 10:10 MCHC 32.3 g/dL (30.0-36.0) 01/12/22 10:10 RDW 13.0 % (12.1-15.1) 01/12/22 10:10 Plt Count 228 10^3/cmm (130-400) 01/12/22 10:10 MPV 11.0 fL (7.4-10.4) H 01/12/22 10:10 Neut % (Auto) 54.1 % 01/12/22 10:10 Lymph % (Auto) 37.3 % 01/12/22 10:10 [place] % (Auto) 5.8 % 01/12/22 10:10 Eos % (Auto) 1.4 % 01/12/22 10:10 Baso % (Auto) 1.2 % 01/12/22 10:10 Neut # (Auto) 2.71 10^3/uL (1.8-7.7) 01/12/22 10:10 Lymph # (Auto) 1.9 10^3/uL (0.8-4.8) 01/12/22 10:10 [place] # (Auto) 0.3 10^3/uL (0.2-0.9) 01/12/22 10:10 Eos # (Auto) 0.1 10^3/uL (0.0-0.8) 01/12/22 10:10 Baso # (Auto) 0.1 10^3/uL (0.0-0.1) 01/12/22 10:10 Nucleated RBC % (auto) 0 % 01/12/22 10:10 Nucleated RBCs # 0.0 /100WBC 01/12/22 10:10 Sodium 140 mmol/L (136-145) 01/12/22 10:10 Potassium 3.8 mmol/L (3.5-5.1) 01/12/22 10:10 Chloride 106 mmol/L (98-107) 01/12/22 10:10 Carbon Dioxide 23 mmol/L (22-29) 01/12/22 10:10 Anion Gap 14.8 (5-19) 01/12/22 10:10 BUN 8 mg/dL (6-20) 01/12/22 10:10 Creatinine 0.8 mg/dL (0.5-0.9) 01/12/22 10:10 GFR Calculation 73.7 mL/min (90-130) L 01/12/22 10:10 Glucose 94 mg/dL (65-115) 01/12/22 10:10 Calculated Osmolality 288 mOsm/kg (285-295) 01/12/22 10:10 Calcium 9.4 mg/dL (8.5-10.5) 01/12/22 10:10 Total Bilirubin 0.4 mg/dL (0.15-1.2) 01/12/22 10:10 AST 13 U/L (0-32) 01/12/22 10:10 ALT 10 U/L (0-33) 01/12/22 10:10 Alkaline Phosphatase 115 IU/L (35-105) H 01/12/22 10:10 Troponin T Baseline 12 ng/L (0-10) H 01/12/22 10:10 Total Protein 6.8 g/dL (6.6-8.7) 01/12/22 10:10 Albumin 4.8 g/dL (3.5-5.2) 01/12/22 10:10 Globulin 2.0 g/dL (1.3-4.6) 01/12/22 10:10 Discharge Plan Discharge Patient Disposition: Home Clinical Impression: Atypical chest pain, GERD (gastroesophageal reflux disease) Condition: Stable Prescriptions: New pantoprazole 40 mg tablet,delayed release (DR/EC) 40 mg PO BID Qty: 30 0RF Carafate 1 gram tablet 1 g PO Q6H PRN (Reason: reflux/heartburn) Qty: 60 0RF No Action cholecalciferol (vitamin D3) 1,250 mcg (50,000 unit) capsule 50,000 unit PO DAILY@0800 0RF albuterol sulfate 2.5 mg/0.5 mL solution for nebulization 10 mg INHALATION Q4H PRN (Reason: Allergy Symptoms) 0RF sumatriptan [Imitrex] 5 mg/actuation spray,non-aerosol 20 mg INTRANASAL Q2H PRN (Reason: headaches) 0RF ibuprofen 200 mg capsule 400 mg PO Q6H PRN0RF Nasonex 50 mcg/actuation spray,non-aerosol 2 spray intranasal DAILY@0800 PRN0RF Rx Instructions: administer into each nostril vitamin E (dl, acetate) 450 mg (1,000 unit) capsule 450 mg PO DAILY 0RF Flovent HFA 110 mcg/actuation HFA aerosol inhaler 2 puff inhalation BID Qty: 12 2RF propranolol 20 mg tablet 20 mg PO Q12H Qty: 60 5RF cyproheptadine 4 mg tablet 4 mg PO BEDTIME@2129 Qty: 30 2RF diazepam [Valium] 5 mg tablet 5 mg PO TID PRN (Reason: anxiety) Qty: 75 2RF duloxetine [Cymbalta] 60 mg capsule,delayed release(DR/EC) 120 mg PO DAILY@213 Qty: 60 2RF prazosin 5 mg capsule 5 mg PO BEDTIME@213 Qty: 30 2RF Topamax 100 mg tablet 100 mg PO BID@0900,2130 Qty: 60 2RF trazodone 150 mg tablet 150 mg PO .HS Qty: 30 2RF quetiapine [Seroquel] 25 mg tablet 25 mg PO .HS Qty: 30 2RF tizanidine [Zanaflex] 4 mg tablet 4 mg PO BID PRN (Reason: muscle spasticity) Qty: 60 2RF cyanocobalamin (vitamin B-12) 1,000 mcg/mL solution 1,000 mcg IM .monthly Qty: 1 2RF alfuzosin 10 mg tablet extended release 24 hr See Rx Instructions .ROUTE .COMPLEX Qty: 90 3RF Dose Instruction: TAKE ONE TABLET BY MOUTH EVERY DAY Rx Instructions: TAKE ONE TABLET BY MOUTH EVERY DAY Adult 50 Plus Probiotic 4 billion cell capsule 4,000 mmu cells PO DAILY@0800 0RF Rx Instructions: administer with a meal Discharge Orders: Discharge ED (Routine); Ordered 01/12/22 Ordered By: Ky Parrish Referrals: Frederick Stark, [facility] [Primary Care Provider] - Patient Instructions: Opioid Safety Activity Restrictions/Additional Instructions: mental health case manager will make arrangements. Outpatient cardiac stress test follow-up with your primary care doctor within the next week. 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
[2022-01-12 10:47] LABS: Alanine Aminotransferase 10 U/L (0-33); Albumin Level 4.8 g/dL (3.5-5.2); Alkaline Phosphatase 115 IU/L (35-105); Anion Gap 14.8 (5-19); Aspartate Amino Transferase 13 U/L (0-32); Blood Urea Nitrogen 8 mg/dL (6-20); Calcium 9.4 mg/dL (8.5-10.5); Carbon Dioxide 23 mmol/L (22-29); Chloride 106 mmol/L (98-107); Glomerular Filtration Rate 73.7 mL/min (90-130); Glucose 94 mg/dL (65-115); Osmolality Calculated 288 mOsm/kg (285-295); Potassium 3.8 mmol/L (3.5-5.1); Sodium 140 mmol/L (136-145); Total Bilirubin 0.4 mg/dL (0.15-1.2); Total Protein 6.8 g/dL (6.6-8.7)
[2022-01-12 10:49] LABS: Troponin(5th) Baseline 12 ng/L (0-10)
[2022-01-12] MEDS: lidocaine 2% viscous 15 ML, aluminum-mag hydrox-simethicon 30 ML, sucralfate oral liq 1 GM PO (11:04)
[2022-01-12 11:05] VITALS: BP 116/74; PULSE 56; RESP 14; O2SAT 98
[2022-01-12 11:52] VITALS: BP 139/64; PULSE 55; RESP 16; O2SAT 95
--- NOTE | 2022-01-13 11:44 | DCPLANNER ---
manager system had message to schedule an outpatient stress test for patient. manager system called patient to confirm that patient wanted the stress test ordered and to confirm who patients primary care physician is for the results to be sent to. Patient stated that her primary care physician is Frederick Stark at the [facility]. Patient stated that she has an appointment scheduled with her primary care physician next week, and that she wants to speak with her primary care physician before having the stress test ordered and if her primary care physician feels like she needs the test that she will have her primary care order it.
== END 2022-01-12 11:56 | disposition home or self-care (01) ==
PROVIDERS: Emergency Provider Family Medicine; PCP Nurse Practitioner
DX: R07.89 Other chest pain (principal); K21.9 Gastro-esophageal reflux disease without esophagitis; F17.210 Nicotine dependence, cigarettes, uncomplicated
CPT/HCPCS: 71045; 80053; 84484; 85025; 93005; 99283

== ENCOUNTER 2022-02-02 15:50 | Emergency (ER) | payer MEDICARE, SELFPAY ==
[2022-02-02] VITALS (8 sets, daily range): BP systolic 120–184; BP diastolic 73–99; PULSE 46–98; RESP 16–20; TEMP 36.7; O2SAT 97–99
--- NOTE | 2022-02-02 19:01 | CTR_ITS ---
PROCEDURE INFORMATION: Exam: CT Abdomen And Pelvis Without Contrast Exam date and time: 02/02/2022 7:21 PM Age: 56 years old Clinical indication: Abdominal pain; Acute; Additional info: Abd pain TECHNIQUE: Imaging protocol: Computed tomography of the abdomen and pelvis without contrast. Radiation optimization: All CT scans at this facility use at least one of these dose optimization techniques: automated exposure control; mA and/or kV adjustment per patient size (includes targeted exams where dose is matched to clinical indication); or iterative reconstruction. COMPARISON: CT abdomen pelvis con [id number] 09/27/2019 12:06 PM RADIATION DOSE METRICS: Total DLP (mGy-cm): 985.87 FINDINGS: Liver: Normal. No mass. Gallbladder and bile ducts: Normal. No calcified stones. No ductal dilation. Pancreas: Normal. No ductal dilation. Spleen: Normal. No splenomegaly. Adrenal glands: Normal. No mass. Kidneys and ureters: Normal. No hydronephrosis. Stomach and bowel: Diverticulosis without diverticulitis. Constipation. Appendix: No evidence of appendicitis. Intraperitoneal space: Unremarkable. No free air. No significant fluid collection. Vasculature: Unremarkable. No abdominal aortic aneurysm. Lymph nodes: Unremarkable. No enlarged lymph nodes. Urinary bladder: Unremarkable as visualized. Reproductive: Unremarkable as visualized. Bones/joints: Unremarkable. No acute fracture. Soft tissues: Unremarkable. CT/CT abdomen pelvis [facility] [id number] IMPRESSION: 1. Negative for acute inflammatory process in the abdomen or pelvis. 2. Diverticulosis without diverticulitis. 3. Constipation.
--- NOTE | 2022-02-02 19:14 | ED_ITS ---
HPI - Abdominal Pain General: Chief Complaint: Abdominal Pain Stated Complaint: Abdominal Pain Time Seen by Provider: 02/02/22 18:49 Source: patient Mode of arrival: ambulatory Limitations: no limitations History of Present Illness: 56-year-old female who states that she generally has been having some abdominal pain over the last 5 to 7 days. States that is mainly in her right upper quadrant its been sharp she has had nausea with vomiting. She states she saw her PCP yesterday and is scheduled to see a surgeon next week but states that her pain got worse today her pain currently is a 7 out of 10 denies any worsening improving factors denies any fevers. Associated Symptoms: Denies chills, dysuria and fever(s) Review of Systems Const: Denies: fever(s), chills, body aches or change in appetite Eyes: Denies: blurry vision or eye discomfort ENMT: Denies: throat pain or dental pain Card: Denies: chest pain Resp: Denies: dyspnea GI: Reports: abdominal pain : Denies: dysuria Musc: Denies: neck pain or back pain Skin/Breast: Denies: rash Neuro: Denies: headache(s) Psych: Denies: depression Nish/Lymph: Denies: easy bruising All/Imm: Denies: urticaria PFSH ED PFSH: Medical History Borderline personality disorder Family history of colon cancer History of nonmelanoma skin cancer Neurogenic bladder Personal history of nicotine dependence Post-traumatic stress disorder, chronic Psychiatric care Renal calculi Voiding dysfunction Surgical History History of basal cell cancer History of History of hysterectomy History of lumbar surgery History of tonsillectomy Family History Mother , at age 72 Parkinson disease Cancer colon Father , at age 60 Cancer brain and liver Social History Smoking and tobacco status: current every day smoker cigarettes Years cigarette s smoked: 20 Second hand smoke exposure: Yes Smoking risk assessment/counseling performed?: Yes Tobacco counseling given: counseling >3 minutes Alcohol intake: never Desire information about alcohol rehabilitation?: No Counseling given: No Desire information about substance/drug rehabilitation?: No Counseling given: No Caregiver/support person: No Lives independently: Yes Household members: spouse Housing: House Marital status: Number of children: 2 service: No Current occupational status: disabled Current occupational exposures/hazards: No History of recent travel: No Current gender identity: Female Physical Exam Const: COMMON NORMALS: no acute distress, patient oriented x3 and healthy appearing HENMT: COMMON NORMALS: normocephalic and atraumatic HEAD & SCALP: normocephalic and atraumatic Eye: COMMON NORMALS: Equal, round and reactive pupils present and EOMs intact bilaterally PUPIL: Yes Equal, round and reactive pupils present Neck/C-Spine: COMMON NORMALS: full ROM and supple Chest: COMMONS NORMALS: normal inspection of the chest and normal palpation of entire chest wall Resp: COMMON NORMALS: normal respiratory effort, No retractions, No use of accessory muscles and clear to auscultation bilaterally AUSCULTATION: clear to auscultation bilaterally Cardio: COMMON NORMALS: regular rate, regular rhythm and No murmurs present (Cardio) RATE: regular rate RHYTHM: regular rhythm GI: COMMON NORMALS: Normal to inspection, nondistended, normoactive bowel sounds present, Soft to palpation and no masses PALPATION: Yes Soft to palpation OTHER: Diffuse mild tenderness Extremity: COMMON NORMALS: normal to inspection and full ROM Neuro: COMMON NORMALS: patient oriented x3, moves all extremities and no focal motor deficits Psych: COMMON NORMALS: mental status grossly normal, Normal thought process present and cooperative THOUGHT PROCESS: Normal thought process present Skin: COMMON NORMALS: no rashes or lesions noted and no wounds GENERAL SKIN EXAM: no rashes or lesions noted Course Vital Signs: Vital signs: Vital Signs Temperature 98.1 F 02/02/22 16:05 Pulse Rate 50 L 02/02/22 21:33 Respiratory Rate 18 02/02/22 21:33 Blood Pressure 120/99 02/02/22 21:33 Pulse Oximetry 98 02/02/22 21:33 MDM - Abdominal Pain Medical Decision Making Patient presents with abdominal pain CT abdomen and blood work here are all normal she is well-appearing here normal exam she has a follow-up scheduled with surgery next week she is to follow-up as scheduled return if worsening she understands agrees to plan. Lab Data : 02/02/22 19:45 02/02/22 19:45 Labs/Radiology: Radiology Impressions Abdomen/Pelvis CT 02/02/22 19:01 IMPRESSION: 1. Negative for acute inflammatory process in the abdomen or pelvis. 2. Diverticulosis without diverticulitis. 3. Constipation. Laboratory Results WBC 4.2 10^3/uL (4.0-10.0) 02/02/22 19:45 RBC 3.77 10^6/uL (4.1-5.3) L 02/02/22 19:45 Hgb 11.4 g/dL (11.5-15.3) L 02/02/22 19:45 Hct 35.7 % (37.0-47.0) L 02/02/22 19:45 MCV 94.7 fl (81-99) 02/02/22 19:45 MCH 30.2 pg (28.0-34.0) 02/02/22 19:45 MCHC 31.9 g/dL (30.0-36.0) 02/02/22 19:45 RDW 12.9 % (12.1-15.1) 02/02/22 19:45 Plt Count 206 10^3/cmm (130-400) 02/02/22 19:45 MPV 11.3 fL (7.4-10.4) H 02/02/22 19:45 Neut % (Auto) 35.5 % 02/02/22 19:45 Lymph % (Auto) 54.4 % 02/02/22 19:45 [place] % (Auto) 7.2 % 02/02/22 19:45 Eos % (Auto) 1.7 % 02/02/22 19:45 Baso % (Auto) 1.0 % 02/02/22 19:45 Neut # (Auto) 1.49 10^3/uL (1.8-7.7) L 02/02/22 19:45 Lymph # (Auto) 2.3 10^3/uL (0.8-4.8) 02/02/22 19:45 [place] # (Auto) 0.3 10^3/uL (0.2-0.9) 02/02/22 19:45 Eos # (Auto) 0.1 10^3/uL (0.0-0.8) 02/02/22 19:45 Baso # (Auto) 0.0 10^3/uL (0.0-0.1) 02/02/22 19:45 Nucleated RBC % (auto) 0 % 02/02/22 19:45 Nucleated RBCs # 0.0 /100WBC 02/02/22 19:45 Sodium 135 mmol/L (136-145) L 02/02/22 19:45 Potassium 3.4 mmol/L (3.5-5.1) L 02/02/22 19:45 Chloride 101 mmol/L (98-107) 02/02/22 19:45 Carbon Dioxide 25 mmol/L (22-29) 02/02/22 19:45 Anion Gap 12.4 (5-19) 02/02/22 19:45 BUN 9 mg/dL (6-20) 02/02/22 19:45 Creatinine 1.0 mg/dL (0.5-0.9) H 02/02/22 19:45 GFR Calculation 56.9 mL/min (90-130) L 02/02/22 19:45 Glucose 83 mg/dL (65-115) 02/02/22 19:45 Calculated Osmolality 278 mOsm/kg (285-295) L 02/02/22 19:45 Calcium 9.0 mg/dL (8.5-10.5) 02/02/22 19:45 Total Bilirubin 0.3 mg/dL (0.15-1.2) 02/02/22 19:45 AST 16 U/L (0-32) 02/02/22 19:45 ALT 12 U/L (0-33) 02/02/22 19:45 Alkaline Phosphatase 92 IU/L (35-105) 02/02/22 19:45 Total Protein 6.5 g/dL (6.6-8.7) L 02/02/22 19:45 Albumin 4.1 g/dL (3.5-5.2) 02/02/22 19:45 Globulin 2.4 g/dL (1.3-4.6) 02/02/22 19:45 Lipase 16 U/L (13-60) 02/02/22 19:45 Discharge Plan Discharge Patient Disposition: Home Clinical Impression: Abdominal pain Qualifiers: Abdominal location: generalized Qualified Code(s): R10.84 - Generalized abdominal pain Condition: Stable Prescriptions: New hydrocodone-acetaminophen 5-325 mg tablet 1 tab PO Q6H PRN (Reason: pain) Qty: 14 0RF No Action cholecalciferol (vitamin D3) 1,250 mcg (50,000 unit) capsule 50,000 unit PO DAILY@0800 0RF albuterol sulfate 2.5 mg/0.5 mL solution for nebulization 10 mg INHALATION Q4H PRN (Reason: Allergy Symptoms) 0RF sumatriptan [Imitrex] 5 mg/actuation spray,non-aerosol 20 mg INTRANASAL Q2H PRN (Reason: headaches) 0RF ibuprofen 200 mg capsule 400 mg PO Q6H PRN0RF Nasonex 50 mcg/actuation spray,non-aerosol 2 spray intranasal DAILY@0800 PRN0RF Rx Instructions: administer into each nostril vitamin E (dl, acetate) 450 mg (1,000 unit) capsule 450 mg PO DAILY 0RF Flovent HFA 110 mcg/actuation HFA aerosol inhaler 2 puff inhalation BID Qty: 12 2RF cyproheptadine 4 mg tablet 4 mg PO BEDTIME@2129 Qty: 30 2RF diazepam [Valium] 5 mg tablet 5 mg PO TID PRN (Reason: anxiety) Qty: 75 2RF duloxetine [Cymbalta] 60 mg capsule,delayed release(DR/EC) 120 mg PO DAILY@2129 Qty: 60 2RF prazosin 5 mg capsule 5 mg PO BEDTIME@2129 Qty: 30 2RF Topamax 100 mg tablet 100 mg PO BID@0900,2129 Qty: 60 2RF trazodone 150 mg tablet 150 mg PO .HS Qty: 30 2RF tizanidine [Zanaflex] 4 mg tablet 4 mg PO BID PRN (Reason: muscle spasticity) Qty: 60 2RF cyanocobalamin (vitamin B-12) 1,000 mcg/mL solution 1,000 mcg IM .monthly Qty: 1 2RF ondansetron HCl 4 mg tablet 4 mg PO Q8H PRN (Reason: nausea and vomiting) Qty: 30 0RF dicyclomine 10 mg capsule 10 mg PO TID PRN (Reason: cramps) Qty: 30 0RF alfuzosin 10 mg tablet extended release 24 hr See Rx Instructions .ROUTE .COMPLEX Qty: 90 3RF Dose Instruction: TAKE ONE TABLET BY MOUTH EVERY DAY Rx Instructions: TAKE ONE TABLET BY MOUTH EVERY DAY propranolol 20 mg tablet 20 mg PO Q12H Qty: 60 5RF pantoprazole 40 mg tablet,delayed release (DR/EC) 40 mg PO BID Qty: 60 2RF Adult 50 Plus Probiotic 4 billion cell capsule 4,000 mmu cells PO DAILY@0800 0RF Rx Instructions: administer with a meal Carafate 1 gram tablet 1 g PO Q6H PRN (Reason: reflux/heartburn) Qty: 60 0RF Discharge Orders: Discharge ED (Routine); Ordered 02/02/22 Ordered By: Magi Vega Referrals: Frederick Stark, TRANSIT BUS OPERATOR-C [Primary Care Provider] - 1-3 days Discharge Diet: Advance as tolerated Discharge Activity: Resume usual activity Patient Instructions: Abdominal Pain (ED) Coding Level of Care Code 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
[2022-02-02 19:58] LABS: Eosinophils # 0.1 10^3/uL (0.0-0.8); Eosinophils % 1.7 %; Hematocrit 35.7 % (37.0-47.0); Hemoglobin 11.4 g/dL (11.5-15.3); Lymphocytes # 2.3 10^3/uL (0.8-4.8); Lymphocytes % 54.4 %; Mean Corpuscular HGB Conc 31.9 g/dL (30.0-36.0); Mean Corpuscular Hemoglobin 30.2 pg (28.0-34.0); Mean Corpuscular Volume 94.7 fl (81-99); Mean Platelet Volume 11.3 fL (7.4-10.4); Monocytes # 0.3 10^3/uL (0.2-0.9); Monocytes % 7.2 %; Neutrophils # 1.49 10^3/uL (1.8-7.7); Neutrophils % 35.5 %; Nucleated Red Blood Cells % 0 %; Platelet Count 206 10^3/cmm (130-400); Red Blood Count 3.77 10^6/uL (4.1-5.3); Red Cell Distribution Width 12.9 % (12.1-15.1); White Blood Count 4.2 10^3/uL (4.0-10.0)
[2022-02-02] MEDS: morphine 4 mg/mL SDV 1 mL IVP (20:03)
[2022-02-02] MEDS: sodium chloride 0.9% 1,000 ML 999 ML IV (20:03)
[2022-02-02] MEDS: ondansetron 2 mg/ML SDV 2 mL 4 MG IVP (20:03)
[2022-02-02 20:16] LABS: Alanine Aminotransferase 12 U/L (0-33); Albumin Level 4.1 g/dL (3.5-5.2); Alkaline Phosphatase 92 IU/L (35-105); Anion Gap 12.4 (5-19); Aspartate Amino Transferase 16 U/L (0-32); Blood Urea Nitrogen 9 mg/dL (6-20); Carbon Dioxide 25 mmol/L (22-29); Chloride 101 mmol/L (98-107); Globulin 2.4 g/dL (1.3-4.6); Glomerular Filtration Rate 56.9 mL/min (90-130); Glucose 83 mg/dL (65-115); Lipase 16 U/L (13-60); Osmolality Calculated 278 mOsm/kg (285-295); Potassium 3.4 mmol/L (3.5-5.1); Sodium 135 mmol/L (136-145); Total Bilirubin 0.3 mg/dL (0.15-1.2); Total Protein 6.5 g/dL (6.6-8.7)
[2022-02-02] MEDS: metoclopramide 5 mg/mL SDV 2 mL IVP (21:07)
[2022-02-02] MEDS: diphenhydrAMINE 50 mg/mL SDV 1mL 25 MG IVP (21:07)
== END 2022-02-02 21:34 | disposition home or self-care (01) ==
PROVIDERS: Physician Assistant; Emergency Provider Emergency Medicine; PCP Nurse Practitioner
DX: R10.84 Generalized abdominal pain (principal); F17.210 Nicotine dependence, cigarettes, uncomplicated
CPT/HCPCS: 74176; 80053; 83690; 85025; 96361; 96374; 96375; 99284; J1200; J2270; J2405; J2765; J7030

== ENCOUNTER → 2022-02-08 08:34 | Outpatient (BNVA) | payer MEDICARE, SELFPAY | PROVIDERS: PCP Nurse Practitioner; Visit Provider Surgery | DX: K82.9 Disease of gallbladder, unspecified (principal) | CPT/HCPCS: 99204 ==

== ENCOUNTER 2022-02-11 07:03 | Day surgery (SDC) | payer MEDICARE, SELFPAY ==
[2022-02-10 15:04] VITALS: BMI 25.0
[2022-02-11] VITALS (10 sets, daily range): BP systolic 121–149; BP diastolic 60–84; PULSE 49–60; RESP 14–20; TEMP 36.1–36.6; O2SAT 90–100
--- NOTE | 2022-02-11 07:35 | P.HP_ITS ---
Same Day Surgery H&P Indication for Procedure/HPI DATE OF PROCEDURE: February 11, 2022 CHIEF COMPLAINT/INDICATIONFOR SURGICAL PROCEDURE: lap lita PREOP DIAGNOSIS: diar PLANNED PROCEDURE: Operation Date: 02/11/22 08:30 Proposed Procedures p Laparoscopic Cholecystectomy 59388/K82.9(Not Applicable) - Connor Schwartz MD Medications/Allergies* Home Medications Medication Instructions Recorded Confirmed Type albuterol sulfate 2.5 mg/0.5 mL 10 mg INHALATION Q4H PRN 10/03/19 02/10/22 History solution for nebulization sumatriptan 5 mg/actuation nasal 20 mg INTRANASAL Q2H PRN 10/03/19 02/10/22 History spray (Imitrex) cholecalciferol (vitamin D3) 1,250 50,000 unit PO DAILY@0800 05/05/20 02/10/22 History mcg (50,000 unit) capsule lactobacillus combination no.9 4 4,000 mmu cells PO DAILY@0800 11/22/20 02/10/22 History billion cell capsule (Adult 50 Plus Probiotic) vitamin E (dl, acetate) 450 mg 450 mg PO DAILY 07/02/21 02/10/22 History (1,000 unit) capsule alfuzosin 10 mg tablet,extended 10 mg PO DAILY 02/10/22 02/10/22 History release 24 hr sucralfate 1 gram tablet (Carafate) 500 mg PO Q6H PRN 02/10/22 02/10/22 History tizanidine 4 mg tablet (Zanaflex) 2 mg PO BID PRN 02/10/22 02/10/22 History trazodone 150 mg tablet 75 mg PO .HS 02/10/22 02/10/22 History Allergies/Adverse Reactions Allergy/AdvReac Type Severity Reaction Status Date / Time acetaminophen [From Percocet] Allergy ADR-Itching Verified 02/11/22 07:19 bacitracin Allergy Unknown Verified 02/10/22 15:03 [From Triple Antibiotic] carbamazepine [From Tegretol] Allergy Unknown Verified 02/10/22 15:03 divalproex sodium Allergy Unknown Verified 02/10/22 15:03 [From Depakote] ketorolac [From Toradol] Allergy Unknown Verified 02/10/22 15:03 lithium Allergy Unknown Verified 02/10/22 15:03 magnesium Allergy Unknown Verified 02/10/22 15:03 neomycin Allergy Unknown Verified 02/10/22 15:03 [From Triple Antibiotic] nitrofurantoin Allergy Unknown Verified 02/10/22 15:03 [From Macrodantin] olanzapine [From Zyprexa] Allergy Unknown Verified 02/10/22 15:03 oxycodone [From Percocet] Allergy ADR-Itching Verified 02/11/22 07:19 penicillin G Allergy Unknown Verified 02/10/22 15:03 polymyxin B Allergy Unknown Verified 02/10/22 15:03 [From Triple Antibiotic] tramadol [From Ultram] Allergy Unknown Verified 02/10/22 15:03 Pertinent History/Comorbid Conditions* Medical History (Updated 02/10/22 @ 00:01 by ) Borderline personality disorder Family history of colon cancer History of nonmelanoma skin cancer Neurogenic bladder Post-traumatic stress disorder, chronic Psychiatric care Renal calculi Voiding dysfunction Surgical History (Updated 02/08/22 @ 08:58 by Connor Schwartz MD) History of basal cell cancer History of History of colonoscopy 5 years ago History of esophagogastroduodenoscopy 2 years ago History of hysterectomy History of lumbar surgery History of tonsillectomy Family History (Updated 08/12/20 @ 14:06 by Roberta Gao LPN) Father, at age 60 Mother, at age 72 Cancer Mother colon Father brain and liver Parkinson disease Mother Social History Smoking and tobacco status: current every day smoker cigarettes Years cigarettes smoked: 20 Second hand smoke exposure: Yes Smoking risk assessment/counseling performed?: Yes Tobacco counseling given: counseling >3 minutes Alcohol intake: never Desire information about alcohol rehabilitation?: No Counseling given: No Desire information about substance/drug rehabilitation?: No Counseling given: No Caregiver/support person: No Lives independently: Yes Household members: spouse Housing: House Marital status: Number of children: 2 service: No Current occupational status: disabled Current occupational exposures/hazards: No History of recent travel: No Current gender identity: Female Pertinent Exam Findings alert, oriented x 3 and regular rate & rhythm Recommendations Surgery/Procedure today Coding Level of Care 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
[2022-02-11] MEDS: sodium chloride 0.9% 1,000 ML 30 ML IV (07:43)
[2022-02-11] MEDS: scopolamine 1.5 Patch 1 PATCH TRANSDERMA (07:47)
--- NOTE | 2022-02-11 07:49 | P.ANESASSM_ITS ---
Pre-Anesthetic Assessment Height/Weight: Height 1.5 m Weight 56.245 kg Temp Pulse Resp BP Pulse Ox 97.6 F 60 18 144/84 96 02/11/22 07:25 02/11/22 07:25 02/11/22 07:25 02/11/22 07:25 02/11/22 07:25 Preop Diagnosis: inguinal hernia Operation Date: 02/11/22 08:30 Proposed Procedures p Laparoscopic Cholecystectomy 62393/K82.9(Not Applicable) - Connor Schwartz MD Familial anesthetic complications: None Was Beta Jake taken within 24 hours: N/A Was Clonidine taken within 24 hours: N/A Last intake: Intake Last Liquid Date 02/10/22 Last Liquid Time 21:00 Last Solid Date 02/10/22 Last Solid Time 16:00 Social Tobacco and No alcohol Exam alert, oriented x 3 and regular rate & rhythm Airway Submandibular: within normal limits Cervical ROM: within normal limits Mallampati: Class II Dentition: full Pulmonary Asthma and Chronic Obstructive Pulmonary Disease GI Gastroesophageal Reflux Disease [facility] [place]/skel Fibromyalgia and Lower Back Pain Neuropsych Anxiety and Depression Anesthetic Plan ASA status: 3 Anesthesia: General Medications/Allergies Home Medications Medication Instructions Recorded Confirmed Last Taken Type albuterol sulfate 2.5 mg/0.5 mL 10 mg INHALATION Q4H PRN 10/03/19 02/11/22 07/03/20 History solution for nebulization sumatriptan 5 mg/actuation nasal 20 mg INTRANASAL Q2H PRN 10/03/19 02/10/22 07/03/20 History spray (Imitrex) cholecalciferol (vitamin D3) 1,250 50,000 unit PO DAILY@0800 05/05/20 02/11/22 02/10/22 09:00 History mcg (50,000 unit) capsule lactobacillus combination no.9 4 4,000 mmu cells PO DAILY@0800 11/22/20 02/11/22 11/22/20 History billion cell capsule (Adult 50 Plus Probiotic) vitamin E (dl, acetate) 450 mg 450 mg PO DAILY 07/02/21 02/11/22 Unknown History (1,000 unit) capsule cyanocobalamin (vitamin B-12) 1,000 mcg IM .monthly #1 ml 12/21/21 02/11/22 01/17/22 Rx 1,000 mcg/mL injection solution cyproheptadine 4 mg tablet 4 mg PO BEDTIME@2130 #30 tab 12/29/21 02/11/22 02/10/22 21:00 Rx diazepam 5 mg tablet (Valium) 5 mg PO TID PRN #75 tab 12/29/21 02/10/22 Unknown Rx duloxetine 60 mg capsule,delayed 120 mg PO DAILY@2130 #60 cap 12/29/21 02/11/22 02/10/22 21:00 Rx release (Cymbalta) prazosin 5 mg capsule 5 mg PO BEDTIME@2130 #30 cap 12/29/21 02/11/22 02/10/22 Rx topiramate 100 mg tablet (Topamax) 100 mg PO BID@0900,2130 #60 tab 12/29/21 02/11/22 02/10/22 Rx pantoprazole 40 mg tablet,delayed 40 mg PO BID #60 tab 01/25/22 02/11/22 02/10/22 09:00 Rx release propranolol 20 mg tablet 20 mg PO Q12H #60 tab 01/25/22 02/11/22 02/10/22 Rx dicyclomine 10 mg capsule 10 mg PO TID PRN #30 cap 02/01/22 02/11/22 02/10/22 09:00 Rx ondansetron HCl 4 mg tablet 4 mg PO Q8H PRN #30 tab 02/01/22 02/11/22 02/10/22 21:00 Rx alfuzosin 10 mg tablet,extended 10 mg PO DAILY 02/10/22 02/11/22 02/10/22 09:00 History release 24 hr sucralfate 1 gram tablet (Carafate) 500 mg PO Q6H PRN 02/10/22 02/11/22 02/10/22 History tizanidine 4 mg tablet (Zanaflex) 2 mg PO BID PRN 02/10/22 02/11/22 02/10/22 History trazodone 150 mg tablet 75 mg PO .HS 02/10/22 02/11/22 02/10/22 History hydrocodone 5 mg-acetaminophen 325 1 tab PO Q6H PRN #20 tab 02/11/22 Unknown Rx mg tablet Allergies Allergy/AdvReac Type Severity Reaction Status Date / Time acetaminophen [From Percocet] Allergy ADR-Itching Verified 02/11/22 07:19 bacitracin Allergy Unknown Verified 02/10/22 15:03 [From Triple Antibiotic] carbamazepine [From Tegretol] Allergy Unknown Verified 02/10/22 15:03 divalproex sodium Allergy Unknown Verified 02/10/22 15:03 [From Depakote] ketorolac [From Toradol] Allergy Unknown Verified 02/10/22 15:03 lithium Allergy Unknown Verified 02/10/22 15:03 magnesium Allergy Unknown Verified 02/10/22 15:03 neomycin Allergy Unknown Verified 02/10/22 15:03 [From Triple Antibiotic] nitrofurantoin Allergy Unknown Verified 02/10/22 15:03 [From Macrodantin] olanzapine [From Zyprexa] Allergy Unknown Verified 02/10/22 15:03 oxycodone [From Percocet] Allergy ADR-Itching Verified 02/11/22 07:19 penicillin G Allergy Unknown Verified 02/10/22 15:03 polymyxin B Allergy Unknown Verified 02/10/22 15:03 [From Triple Antibiotic] tramadol [From Ultram] Allergy Unknown Verified 02/10/22 15:03 Current Medications Generic Name Dose Route Start Last Admin Trade Name Freq PRN Reason Stop Dose Admin Sodium Chloride 1,000 mls @ 30 mls/hr 02/11/22 07:15 02/11/22 07:43 Sodium Chloride 0.9% IV 02/12/22 07:14 30 mls/hr .Q24H DIETER Administration PFSH Anesthesia Medical History (Updated 02/10/22 @ 00:01 by ) Borderline personality disorder Family history of colon cancer History of nonmelanoma skin cancer Neurogenic bladder Post-traumatic stress disorder, chronic Psychiatric care Renal calculi Voiding dysfunction Surgical History (Updated 02/11/22 @ 07:49 by Connor Schwartz MD) History of basal cell cancer History of History of colonoscopy 5 years ago History of esophagogastroduodenoscopy 2 years ago History of hysterectomy History of lumbar surgery History of tonsillectomy Status post laparoscopic cholecystectomy (02/11/22) Family History Mother , at age 72 Parkinson disease Cancer colon Father , at age 60 Cancer brain and liver Social History Smoking and tobacco status: current every day smoker cigarettes Years cigarettes smoked: 20 Second hand smoke exposure: Yes Smoking risk assessment/counseling performed?: Yes Tobacco counseling given: counseling >3 minutes Alcohol intake: never Desire information about alcohol rehabilitation?: No Counseling given: No Desire information about substance/drug rehabilitation?: No Counseling given: No Caregiver/support person: No Lives independently: Yes Household members: spouse Housing: House Marital status: Number of children: 2 service: No Current occupational status: disabled Current occupational exposures/hazards: No History of recent travel: No Current gender identity: Female Data Anesthesia Cardiac Studies: No Data to Display
[2022-02-11] MEDS: levofloxacin-dextrose 5 % 500 MG/100 ML PREMIX 100 MG IV (07:52)
--- NOTE | 2022-02-11 08:44 | PM.OP ---
Operative Report Date of procedure: February 11, 2022 Pre-op diagnosis: Chronic cholecystitis Post-op diagnosis: Chronic cholecystitis Procedure done: Laparoscopic cholecystectomy Specimens removed/disposition: Gallbladder Surgeon: Connor Schwartz Anesthesia: General Condition: stable Disposition: PACU Procedure: The patient was taken to the operating room and was intubated under general anesthesia. After the antibiotic had been administered, the abdomen was prepped and draped in a sterile manner. Using a #15 blade, a 1 centimeter infraumbilical curvilinear incision was made and using an open Barry technique the peritoneal cavity was entered. A 10 millimeter port was placed and 15 millimeters of pneumoperitoneum was created. A 10 millimeter, 30 degrees scope was then introduced. Three 5 millimeter ports were placed in the epigastric, midclavicular and the anterior axillary line two fingerbreadths below the costal margin on the right side under the direct visualization. Ratcheted forceps were introduced into the lateral most port and was used to retract the fundus of the gallbladder cephalad and using forceps the infundibulum of the gallbladder was retracted laterally. Using L-hook cautery the peritoneum overlying the Calot's triangle was opened medially and laterally until the cystic duct and the cystic artery were skeletonized. Dissection was carried along the body of the gallbladder and after ensuring critical view of safety, 4 clips applied on the cystic duct and 3 clips applied on the cystic artery and cut leaving, 3 clips on the remaining portion of the duct and 2 clips on the remaining portion of the artery. The rest of the gallbladder was dissected off the liver using L-hook cautery. There was no bleeding or bile leaking noted from the gallbladder fossa and the clips appeared to be in place. An EndoCatch bag was introduced to remove the gallbladder. All the ports were removed under direct visualization and there was no bleeding noted from the port sites. The fascia of the umbilicus was closed using [id number] 0 Vicryl sutures and the subcutaneous tissue was approximated using 3-0 Vicryl sutures. The skin at all four ports were closed using 4-0 Monocryl and Dermabond. A total of 10 millimeters of 0.5% Marcaine was infiltrated around the port sites. The patient was stable throughout the procedure.
[2022-02-11] MEDS: HYDROcodone-acetaminophen 5-325 mg Tablet 1 TAB PO (09:24)
--- NOTE | 2022-02-11 09:25 | PC.NURSE ---
patient given hydrocodone for pain. Patient states no allergy to hydrocodone. Called Dr. Schwartz office and left a message for them to make follow up appointment and to call patient.
--- NOTE | 2022-02-11 13:49 | ANE.PACU2 ---
Inpatient post-anesthesia follow up: Airway intact: Yes Vital signs: Temperature 97.8 F Pulse Rate 53 Respiratory Rate 18 Blood Pressure 121/60 Pulse Oximetry 94 Oxygen Delivery Me thod Room Air Oxygen Flow Rate 6 Fraction of Inspir ed Oxygen Hydration adequate: Yes Nausea and vomiting: No Pain level: 2 Mental status: Baseline
== END 2022-02-11 10:16 | disposition home or self-care (01) ==
PROVIDERS: PCP Nurse Practitioner; Visit Provider Surgery
PROC: 0FT44ZZ Resection of Gallbladder, Percutaneous Endoscopic Approach (ICD-10-PCS; CPT 47562; principal; 2022-02-11 08:20)
DX: K80.10 Calculus of gallbladder with chronic cholecystitis without obstruction (principal); J44.9 Chronic obstructive pulmonary disease, unspecified; K21.9 Gastro-esophageal reflux disease without esophagitis; M79.7 Fibromyalgia; F17.210 Nicotine dependence, cigarettes, uncomplicated
CPT/HCPCS: 47562; 88304; J1100; J1200; J1956; J2250; J2405; J2704; J2710; J3010; J3490; J7030

== ENCOUNTER → 2022-02-16 13:55 | Outpatient (BNVA) | payer MEDICARE, SELFPAY | PROVIDERS: PCP Nurse Practitioner; Visit Provider Surgery | DX: Z98.890 Other specified postprocedural states (principal); Z90.49 Acquired absence of other specified parts of digestive tract; K21.9 Gastro-esophageal reflux disease without esophagitis | CPT/HCPCS: 99024 ==

== ENCOUNTER → 2022-03-02 11:31 | Outpatient (BNVA) | payer MEDICARE, SELFPAY | PROVIDERS: PCP Nurse Practitioner; Visit Provider Surgery | DX: Z98.890 Other specified postprocedural states (principal); Z90.49 Acquired absence of other specified parts of digestive tract; K21.9 Gastro-esophageal reflux disease without esophagitis | CPT/HCPCS: 99213 ==

== ENCOUNTER → 2022-03-04 07:05 | Outpatient (BNVA) | payer MEDICARE, SELFPAY | PROVIDERS: PCP Nurse Practitioner; Visit Provider Nurse Practitioner | DX: F43.12 Post-traumatic stress disorder, chronic (principal); F60.3 Borderline personality disorder; R51.9 Headache, unspecified; G89.29 Other chronic pain | CPT/HCPCS: 99214 ==

== ENCOUNTER 2022-03-16 12:29 | Emergency (ER) | payer MEDICARE, SELFPAY ==
[2022-03-16 12:42] VITALS: BP 138/85; PULSE 61; RESP 16; TEMP 36.4; O2SAT 99; BMI 23.6
--- NOTE | 2022-03-16 13:36 | PC.NURSE ---
WHILE IN LOBBY ASSESSING PT. PT CO OF INCREASING NUMBNESS TO RIGHT ARM. NOTIFIED CHARGE NURSE BRYN NICOLE NEED OF ROOM. HE VERBALIZED UNDERSTANDING AND STATED THAT A ROOM WOULD BE MADE AVAILABLE JOSE L.
--- NOTE | 2022-03-16 14:08 | CT_ITS ---
WS: [id number] CT HEAD NONCONTRAST HISTORY: weakness, confusion, light-headedness TECHNIQUE: Contiguous axial imaging performed through the brain in 2.5 mm imaging. Bone and soft tiss ue windows. Sagittal and coronal reformats reviewed. All CT scans at [facility] use at least one of these dose optimization techniques: automated exposure control; mA and/or kV adjustment per pa tient size (includes targeted exams where dose is matched to clinical indication); or iterative recon struction. DLP: 689.07 mGy.cm COMPARISON: 05/17/2018 No acute intracranial hemorrhage, midline shift or mass effect. Mild atrophy and small vessel ischemic disease. No prior infarcts. Ventricles: Normal size with no hydrocephalus. No inferior displacement of cerebellar tonsils. Paranasal sinuses: As visualized are clear. Mastoid air cells: Well pneumatized. Calvarium and scalp: Skull is intact with no soft tissue edema or swelling. CT/CT head wo con* [id number] IMPRESSION: 1. No acute intracranial hemorrhage or edema. 2. Very mild cerebral atrophy and small vessel ischemic disease.
--- NOTE | 2022-03-16 14:57 | W.ED.NEUROSD ---
Documented by User: Ky Parrish DO 03/17/22 06:42 HPI - Neuro Symptoms/Deficit General: Chief Complaint: Neuro Symptoms/Deficit Stated Complaint: Doc sent, possible stroke Time Seen by Provider: 03/16/22 14:33 Source: patient Mode of arrival: ambulatory History of Present Illness: 56-year-old female who presents to the emergency room with complaint of a headache. She states she has had intermittent confusion right-sided weakness difficulty with vision and gait for week but then tonight try to get drilled down to about her last known well time its 5 days ago. She relates it to when she had some heat exhaustion last week. Today she went into see her PCP for the symptoms as well as generalized weakness that thought she had some right-sided facial and right arm and leg weakness and referred her to the emergency room she denies any chest pain. She is having a bit of a headache. Onset (ago): day(s) (5) Location: left face, left arm and left leg History of same: No Severity: moderate Quality: weak and tingling Relieving factors: none Exacerbating factors: none Context: gradual onset On Anticoagulants: No Associated symptoms: Reports headache(s); Deny chest pain, cough, diaphoresis, fevers/chills, anorexia, malaise, nausea, seizures, short of breath, syncope, tingling, vertigo, vomiting or weakness Treatments Prior to Arrival: none Review of Systems Const: Denies: fever(s), chills, fatigue, malaise or diaphoresis ENMT: Denies: throat pain, ear or mastoid pain, nasal discharge or nasal congestion Card: Denies: chest pain or syncope Resp: Denies: dyspnea, productive cough or non-productive cough GI: Denies: abdominal pain, nausea or vomiting : Denies: flank pain, difficulty voiding, dysuria, urinary frequency or urinary urgency Skin/Breast: Denies: rash or pruritus Neuro: Reports: headache(s); Denies: vertigo PFSH ED PFSH: Medical History Borderline personality disorder Family history of colon cancer GERD (gastroesophageal reflux disease) History of nonmelanoma skin cancer Neurogenic bladder Post-traumatic stress disorder, chronic Psychiatric care Renal calculi Voiding dysfunction Surgical History History of basal cell cancer History of History of colonoscopy 5 years ago History of esophagogastroduodenoscopy 2 years ago History of hysterectomy History of lumbar surgery History of tonsillectomy Status post laparoscopic cholecystectomy (02/11/22) Family History Mother , at age 72 Parkinson disease Cancer colon Father , at age 60 Cancer brain and liver Social History Smoking and tobacco status: current every day smoker cigarettes Years cigarettes smoked: 20 Second hand smoke exposure: Yes Smoking risk assessment/counseling performed?: Yes Tobacco counseling given: counseling >3 minutes Alcohol intake: never Desire information about alcohol rehabilitation?: No Counseling given: No Desire information about substance/drug rehabilitation?: No Counseling given: No Caregiver/support person: No Lives independently: Yes Household members: spouse Housing: House Marital status: Number of children: 2 service: No Current occupational status: disabled Current occupational exposures/hazards: No History of recent travel: No Current gender identity: Female NIH stroke score NIHSS: Level Of Consciousness - 1a: 0 Level Of Consciousness Questions - 1b: Both Correct Level Of Consciousness Commands - 1c: Both Correct Best Gaze - 2: Normal Visual Black - 3: No Visual Loss Facial Palsy - 4: Minor Paralysis Motor Arm Right - 5: Drift Motor Arm Left - 5: No Drift Motor Leg Right - 6: Drift Motor Leg Left - 6: No Drift Sensory - 8: Normal Best Language - 9: No Aphasia Dysarthia - 10: Normal Extinction And Inattention - 11: 0 Physical Exam Const: GENERAL APPEARANCE: cooperative and comfortable ORIENTATION/CONSCIOUSNESS: Yes awake, Yes oriented to person, Yes oriented to place and Yes oriented to time HENMT: COMMON NORMALS: normocephalic, atraumatic, hearing grossly normal bilaterally, external ears normal, EAC's normal, TM's normal bilaterally, Normal nasal mucous membranes and turbinates present, moist oral mucous membranes and oropharynx normal HEAD & SCALP: normocephalic and atraumatic NOSE: Normal nasal mucous membranes and turbinates present EXTERNAL EAR: Yes external ears normal EXTERNAL AUDITORY CANAL: EAC's normal TYMPANIC MEMBRANE: TM's normal bilaterally Eye: COMMON NORMALS: Equal, round and reactive pupils present, EOMs intact bilaterally, conjunctivae normal and no scleral icterus CONJUNCTIVA: Yes conjunctivae normal PUPIL: Yes Equal, round and reactive pupils present Neck/C-Spine: COMMON NORMALS: full ROM, no lymphadenopathy, supple and no JVD Resp: COMMON NORMALS: normal respiratory effort, No retractions, No use of accessory muscles and clear to auscultation bilaterally AUSCULTATION: clear to auscultation bilaterally Cardio: COMMON NORMALS: no JVD, regular rate, regular rhythm and No murmurs present (Cardio) RATE: regular rate RHYTHM: regular rhythm GI: COMMON NORMALS: Soft to palpation and No hepatosplenomegaly present AUSCULTATION: Yes normoactive bowel sounds PALPATION: Yes Soft to palpation, No Tenderness to palpation present (GI), No Guarding due to palpation present (GI) and Yes No hepatosplenomegaly present Extremity: COMMON NORMALS: normal to inspection, capillary refill normal, no clubbing, cyanosis or edema, no calf tenderness and no pedal edema Neuro: SENSORIUM/ORIENTATION: Yes oriented to person, Yes oriented to place and Yes oriented to time Skin: COMMON NORMALS: no rashes or lesions noted GENERAL SKIN EXAM: no rashes or lesions noted Course Vital Signs: Vital signs: Vital Signs Temperature 97.6 F 03/16/22 12:42 Pulse Rate 50 L 03/16/22 19:31 Respiratory Rate 20 H 03/16/22 19:31 Blood Pressure 156/96 03/16/22 19:31 Pulse Oximetry 99 03/16/22 19:31 MDM - Neuro Symptoms/Deficit Medical Decision Making Care signed out to Dr. Vega at change of shift. See final notes for diagnosis and disposition. Patient presents here with headache she does have a history of migraine headaches also having some dizziness could be a migraine variant. CTA of head and neck here are normal she has no signs of acute stroke patient states that her PCP is getting her follow-up with a neurologist she is to follow-up as scheduled return if worsening she understands agrees to plan. Her headache has resolved here and her symptoms are resolving with her headache she is able to ambulate the halls without any difficulty. Medical Records I reviewed the patient's medical records. Lab Data I reviewed the patient's lab results. : 03/16/22 14:50 03/16/22 14:[address] 03/16/22 14:08 IMPRESSION: 1. No acute intracranial hemorrhage or edema. 2. Very mild cerebral atrophy and small vessel ischemic disease. Head/Neck CTA 03/16/22 15:47 IMPRESSION: No large vessel stenosis or occlusion. IMPRESSION: No stenosis or occlusion. REFERENCES: NASCET CRITERIA. The degree of internal carotid artery stenosis is based on NASCET criteria. Normal is no stenosis. Mild is less than 50% stenosis. Moderate is 50-69% stenosis. Severe is 70% to 99% stenosis. Total occlusion is no detectable patent lumen. Laboratory Results WBC 3.9 10^3/uL (4.0-10.0) L 03/16/22 14:50 RBC 3.79 10^6/uL (4.1-5.3) L 03/16/22 14:50 Hgb 11.6 g/dL (11.5-15.3) 03/16/22 14:50 Hct 35.6 % (37.0-47.0) L 03/16/22 14:50 MCV 93.9 fl (81-99) 03/16/22 14:50 MCH 30.6 pg (28.0-34.0) 03/16/22 14:50 MCHC 32.6 g/dL (30.0-36.0) 03/16/22 14:50 RDW 12.8 % (12.1-15.1) 03/16/22 14:50 Plt Count 201 10^3/cmm (130-400) 03/16/22 14:50 MPV 10.9 fL (7.4-10.4) H 03/16/22 14:50 Neut % (Auto) 43.8 % 03/16/22 14:50 Lymph % (Auto) 46.9 % 03/16/22 14:50 [place] % (Auto) 5.7 % 03/16/22 14:50 Eos % (Auto) 2.8 % 03/16/22 14:50 Baso % (Auto) 0.8 % 03/16/22 14:50 Neut # (Auto) 1.70 10^3/uL (1.8-7.7) L 03/16/22 14:50 Lymph # (Auto) 1.8 10^3/uL (0.8-4.8) 03/16/22 14:50 [place] # (Auto) 0.2 10^3/uL (0.2-0.9) 03/16/22 14:50 Eos # (Auto) 0.1 10^3/uL (0.0-0.8) 03/16/22 14:50 Baso # (Auto) 0.0 10^3/uL (0.0-0.1) 03/16/22 14:50 Nucleated RBC % (auto) 0 % 03/16/22 14:50 Nucleated RBCs # 0.0 /100WBC 03/16/22 14:50 Sodium 137 mmol/L (136-145) 03/16/22 14:50 Potassium 4.7 mmol/L (3.5-5.1) 03/16/22 14:50 Chloride 102 mmol/L (98-107) 03/16/22 14:50 Carbon Dioxide 27 mmol/L (22-29) 03/16/22 14:50 Anion Gap 12.7 (5-19) 03/16/22 14:50 BUN 5 mg/dL (6-20) L 03/16/22 14:50 Creatinine 0.8 mg/dL (0.5-0.9) 03/16/22 14:50 GFR Calculation 73.7 mL/min (90-130) L 03/16/22 14:50 Glucose 92 mg/dL (65-115) 03/16/22 14:50 Calculated Osmolality 281 mOsm/kg (285-295) L 03/16/22 14:50 Calcium 8.6 mg/dL (8.5-10.5) 03/16/22 14:50 Total Bilirubin 0.3 mg/dL (0.15-1.2) 03/16/22 14:50 AST 29 U/L (0-32) 03/16/22 14:50 ALT 22 U/L (0-33) 03/16/22 14:50 Alkaline Phosphatase 121 IU/L (35-105) H 03/16/22 14:50 Total Protein 7.0 g/dL (6.6-8.7) 03/16/22 14:50 Albumin 4.5 g/dL (3.5-5.2) 03/16/22 14:50 Globulin 2.5 g/dL (1.3-4.6) 03/16/22 14:50 Lipase 14 U/L (13-60) 03/16/22 14:50 Urine Color Straw (Yellow) 03/16/22 15:35 Urine Appearance Clear (CLEAR) 03/16/22 15:35 Urine pH 7 (5-7) 03/16/22 15:35 Ur Specific [place] 1.010 (1.005-1.030) 03/16/22 15:35 Urine Protein Neg (Negative) 03/16/22 15:35 Urine Glucose (UA) Norm (Normal) 03/16/22 15:35 Urine Ketones Negative (Negative) 03/16/22 15:35 Urine Blood Neg (Negative) 03/16/22 15:35 Urine Nitrate Negative (Negative) 03/16/22 15:35 Urine Bilirubin Neg (Negative) 03/16/22 15:35 Urine Urobilinogen Norm mg/dL (Negative) 03/16/22 15:35 Ur Leukocyte Esterase Negative (Negative) 03/16/22 15:35 Discharge Plan Discharge Patient Disposition: Home Clinical Impression: Headache, Dizziness Condition: Stable Prescriptions: No Action cholecalciferol (vitamin D3) 1,250 mcg (50,000 unit) capsule 50,000 unit PO DAILY@0800 0RF albuterol sulfate 2.5 mg/0.5 mL solution for nebulization 10 mg INHALATION Q4H PRN (Reason: Allergy Symptoms) 0RF vitamin E (dl, acetate) 450 mg (1,000 unit) capsule 450 mg PO DAILY 0RF cyanocobalamin (vitamin B-12) 1,000 mcg/mL solution 1,000 mcg IM .monthly Qty: 1 2RF diazepam [Valium] 5 mg tablet 5 mg PO TID PRN (Reason: anxiety) Qty: 75 2RF prazosin 5 mg capsule 5 mg PO BEDTIME@2129 Qty: 30 2RF duloxetine [Cymbalta] 60 mg capsule,delayed release(DR/EC) 120 mg PO DAILY@2129 Qty: 60 2RF cyproheptadine 4 mg tablet 4 mg PO BEDTIME@2129 Qty: 30 2RF Topamax 100 mg tablet 100 mg PO BID@0900,2130 Qty: 60 2RF trazodone 150 mg tablet 150 mg PO .HS Qty: 30 2RF propranolol 20 mg tablet 20 mg PO Q12H Qty: 60 5RF pantoprazole 40 mg tablet,delayed release (DR/EC) 40 mg PO BID Qty: 60 2RF Adult 50 Plus Probiotic 4 billion cell capsule 4,000 mmu cells PO DAILY@0800 0RF Rx Instructions: administer with a meal alfuzosin 10 mg tablet extended release 24 hr 10 mg PO DAILY 0RF hydrocodone-acetaminophen 5-325 mg tablet 1 tab PO Q6H PRN (Reason: pain) Qty: 20 0RF Discharge Orders: Discharge ED (Routine); Ordered 03/16/22 Ordered By: Magi Vega Referrals: Frederick Stark FNP-C [Primary Care Provider] - 1-3 days Discharge Diet: Advance as tolerated Discharge Activity: Resume usual activity Patient Instructions: Acute Headache (ED), Dizziness (ED) Coding Level of Care Code ED Oriental Rug Stretcher for Chg Fwd 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 Documented by User: Magi Vega MD 03/16/22 19:33 HPI - Neuro Symptoms/Deficit General: Chief Complaint: Neuro Symptoms/Deficit Stated Complaint: Doc sent, possible stroke Time Seen by Provider: 03/16/22 14:33 ON LICENSE OF [facility] ED PFSH: Medical History Borderline personality disorder Family history of colon cancer GERD (gastroesophageal reflux disease) History of nonmelanoma skin cancer Neurogenic bladder Post-traumatic stress disorder, chronic Psychiatric care Renal calculi Voiding dysfunction Surgical History History of basal cell cancer History of History of colonoscopy 5 years ago History of esophagogastroduodenoscopy 2 years ago History of hysterectomy History of lumbar surgery History of tonsillectomy Status post laparoscopic cholecystectomy (02/11/22) Family History Mother , at age 72 Parkinson disease Cancer colon Father , at age 60 Cancer brain and liver Social History Smoking and tobacco status: current every day smoker cigarettes Years cigarettes smoked: 20 Second hand smoke exposure: Yes Smoking risk assessment/counseling performed?: Yes Tobacco counseling given: counseling >3 minutes Alcohol intake: never Desire information about alcohol rehabilitation?: No Counseling given: No Desire information about substance/drug rehabilitation?: No Counseling given: No Caregiver/support person: No Lives independently: Yes Household members: spouse Housing: House Marital status: Number of children: 2 service: No Current occupational status: disabled Current occupational exposures/hazards: No History of recent travel: No Current gender identity: Female Course Vital Signs: Vital signs: Vital Signs Temperature 97.6 F 03/16/22 12:42 Pulse Rate 50 L 03/16/22 19:31 Respiratory Rate 20 H 03/16/22 19:31 Blood Pressure 156/96 03/16/22 19:31 Pulse Oximetry 99 03/16/22 19:31 MDM - Neuro Symptoms/Deficit Medical Decision Making Patient presents here with headache she does have a history of migraine headaches also having some dizziness could be a migraine variant. CTA of head and neck here are normal she has no signs of acute stroke patient states that her PCP is getting her follow-up with a neurologist she is to follow-up as scheduled return if worsening she understands agrees to plan. Her headache has resolved here and her symptoms are resolving with her headache she is able to ambulate the halls without any difficulty. Lab Data : 03/16/22 14:50 03/16/22 14:[address] 03/16/22 14:08 IMPRESSION: 1. No acute intracranial hemorrhage or edema. 2. Very mild cerebral atrophy and small vessel ischemic disease. Head/Neck CTA 03/16/22 15:47 IMPRESSION: No large vessel stenosis or occlusion. IMPRESSION: No stenosis or occlusion. REFERENCES: NASCET CRITERIA. The degree of internal carotid artery stenosis is based on NASCET criteria. Normal is no stenosis. Mild is less than 50% stenosis. Moderate is 50-69% stenosis. Severe is 70% to 99% stenosis. Total occlusion is no detectable patent lumen. Laboratory Results WBC 3.9 10^3/uL (4.0-10.0) L 03/16/22 14:50 RBC 3.79 10^6/uL (4.1-5.3) L 03/16/22 14:50 Hgb 11.6 g/dL (11.5-15.3) 03/16/22 14:50 Hct 35.6 % (37.0-47.0) L 03/16/22 14:50 MCV 93.9 fl (81-99) 03/16/22 14:50 MCH 30.6 pg (28.0-34.0) 03/16/22 14:50 MCHC 32.6 g/dL (30.0-36.0) 03/16/22 14:50 RDW 12.8 % (12.1-15.1) 03/16/22 14:50 Plt Count 201 10^3/cmm (130-400) 03/16/22 14:50 MPV 10.9 fL (7.4-10.4) H 03/16/22 14:50 Neut % (Auto) 43.8 % 03/16/22 14:50 Lymph % (Auto) 46.9 % 03/16/22 14:50 [place] % (Auto) 5.7 % 03/16/22 14:50 Eos % (Auto) 2.8 % 03/16/22 14:50 Baso % (Auto) 0.8 % 03/16/22 14:50 Neut # (Auto) 1.70 10^3/uL (1.8-7.7) L 03/16/22 14:50 Lymph # (Auto) 1.8 10^3/uL (0.8-4.8) 03/16/22 14:50 [place] # (Auto) 0.2 10^3/uL (0.2-0.9) 03/16/22 14:50 Eos # (Auto) 0.1 10^3/uL (0.0-0.8) 03/16/22 14:50 Baso # (Auto) 0.0 10^3/uL (0.0-0.1) 03/16/22 14:50 Nucleated RBC % (auto) 0 % 03/16/22 14:50 Nucleated RBCs # 0.0 /100WBC 03/16/22 14:50 Sodium 137 mmol/L (136-145) 03/16/22 14:50 Potassium 4.7 mmol/L (3.5-5.1) 03/16/22 14:50 Chloride 102 mmol/L (98-107) 03/16/22 14:50 Carbon Dioxide 27 mmol/L (22-29) 03/16/22 14:50 Anion Gap 12.7 (5-19) 03/16/22 14:50 BUN 5 mg/dL (6-20) L 03/16/22 14:50 Creatinine 0.8 mg/dL (0.5-0.9) 03/16/22 14:50 GFR Calculation 73.7 mL/min (90-130) L 03/16/22 14:50 Glucose 92 mg/dL (65-115) 03/16/22 14:50 Calculated Osmolality 281 mOsm/kg (285-295) L 03/16/22 14:50 Calcium 8.6 mg/dL (8.5-10.5) 03/16/22 14:50 Total Bilirubin 0.3 mg/dL (0.15-1.2) 03/16/22 14:50 AST 29 U/L (0-32) 03/16/22 14:50 ALT 22 U/L (0-33) 03/16/22 14:50 Alkaline Phosphatase 121 IU/L (35-105) H 03/16/22 14:50 Total Protein 7.0 g/dL (6.6-8.7) 03/16/22 14:50 Albumin 4.5 g/dL (3.5-5.2) 03/16/22 14:50 Globulin 2.5 g/dL (1.3-4.6) 03/16/22 14:50 Lipase 14 U/L (13-60) 03/16/22 14:50 Urine Color Straw (Yellow) 03/16/22 15:35 Urine Appearance Clear (CLEAR) 03/16/22 15:35 Urine pH 7 (5-7) 03/16/22 15:35 Ur Specific [place] 1.010 (1.005-1.030) 03/16/22 15:35 Urine Protein Neg (Negative) 03/16/22 15:35 Urine Glucose (UA) Norm (Normal) 03/16/22 15:35 Urine Ketones Negative (Negative) 03/16/22 15:35 Urine Blood Neg (Negative) 03/16/22 15:35 Urine Nitrate Negative (Negative) 03/16/22 15:35 Urine Bilirubin Neg (Negative) 03/16/22 15:35 Urine Urobilinogen Norm mg/dL (Negative) 03/16/22 15:35 Ur Leukocyte Esterase Negative (Negative) 03/16/22 15:35 Discharge Plan Discharge Patient Disposition: Home Clinical Impression: Headache, Dizziness Condition: Stable Prescriptions: No Action cholecalciferol (vitamin D3) 1,250 mcg (50,000 unit) capsule 50,000 unit PO DAILY@0800 0RF albuterol sulfate 2.5 mg/0.5 mL solution for nebulization 10 mg INHALATION Q4H PRN (Reason: Allergy Symptoms) 0RF vitamin E (dl, acetate) 450 mg (1,000 unit) capsule 450 mg PO DAILY 0RF cyanocobalamin (vitamin B-12) 1,000 mcg/mL solution 1,000 mcg IM .monthly Qty: 1 2RF diazepam [Valium] 5 mg tablet 5 mg PO TID PRN (Reason: anxiety) Qty: 75 2RF prazosin 5 mg capsule 5 mg PO BEDTIME@2129 Qty: 30 2RF duloxetine [Cymbalta] 60 mg capsule,delayed release(DR/EC) 120 mg PO DAILY@2129 Qty: 60 2RF cyproheptadine 4 mg tablet 4 mg PO BEDTIME@2129 Qty: 30 2RF Topamax 100 mg tablet 100 mg PO BID@0900,2129 Qty: 60 2RF trazodone 150 mg tablet 150 mg PO .HS Qty: 30 2RF propranolol 20 mg tablet 20 mg PO Q12H Qty: 60 5RF pantoprazole 40 mg tablet,delayed release (DR/EC) 40 mg PO BID Qty: 60 2RF Adult 50 Plus Probiotic 4 billion cell capsule 4,000 mmu cells PO DAILY@0800 0RF Rx Instructions: administer with a meal alfuzosin 10 mg tablet extended release 24 hr 10 mg PO DAILY 0RF hydrocodone-acetaminophen 5-325 mg tablet 1 tab PO Q6H PRN (Reason: pain) Qty: 20 0RF Discharge Orders: Discharge ED (Routine); Ordered 03/16/22 Ordered By: Magi Vega Referrals: Frederick Stark, [facility] [Primary Care Provider] - 1-3 days Discharge Diet: Advance as tolerated Discharge Activity: Resume usual activity Patient Instructions: Acute Headache (ED), Dizziness (ED) Coding Level of Care Code ED Oriental Rug Stretcher for Chg Fwd 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
[2022-03-16] MEDS: promethazine 25 mg/mL SDV 1 mL IM (14:59)
[2022-03-16] MEDS: sodium chloride 0.9% 1,000 ML 999 ML IV (14:59)
[2022-03-16 15:01] LABS: Basophils % 0.8 %; Eosinophils # 0.1 10^3/uL (0.0-0.8); Eosinophils % 2.8 %; Hematocrit 35.6 % (37.0-47.0); Hemoglobin 11.6 g/dL (11.5-15.3); Lymphocytes # 1.8 10^3/uL (0.8-4.8); Lymphocytes % 46.9 %; Mean Corpuscular HGB Conc 32.6 g/dL (30.0-36.0); Mean Corpuscular Hemoglobin 30.6 pg (28.0-34.0); Mean Corpuscular Volume 93.9 fl (81-99); Mean Platelet Volume 10.9 fL (7.4-10.4); Monocytes # 0.2 10^3/uL (0.2-0.9); Monocytes % 5.7 %; Neutrophils % 43.8 %; Nucleated Red Blood Cells % 0 %; Platelet Count 201 10^3/cmm (130-400); Red Blood Count 3.79 10^6/uL (4.1-5.3); Red Cell Distribution Width 12.8 % (12.1-15.1); White Blood Count 3.9 10^3/uL (4.0-10.0)
[2022-03-16 15:22] LABS: Albumin Level 4.5 g/dL (3.5-5.2); Alkaline Phosphatase 121 IU/L (35-105); Blood Urea Nitrogen 5 mg/dL (6-20); Calcium 8.6 mg/dL (8.5-10.5); Carbon Dioxide 27 mmol/L (22-29); Chloride 102 mmol/L (98-107); Globulin 2.5 g/dL (1.3-4.6); Glomerular Filtration Rate 73.7 mL/min (90-130); Glucose 92 mg/dL (65-115); Lipase 14 U/L (13-60); Osmolality Calculated 281 mOsm/kg (285-295); Sodium 137 mmol/L (136-145); Total Bilirubin 0.3 mg/dL (0.15-1.2)
[2022-03-16 15:23] LABS: Anion Gap 12.7 (5-19); Potassium 4.7 mmol/L (3.5-5.1)
[2022-03-16 15:27] LABS: Alanine Aminotransferase 22 U/L (0-33); Aspartate Amino Transferase 29 U/L (0-32)
--- NOTE | 2022-03-16 15:47 | CTR_ITS ---
PROCEDURE INFORMATION: Exam: CTA Head With Contrast, Arteriography Exam date and time: 03/16/2022 5:25 PM Age: 56 years old Clinical indication: Numbness and weakness; Patient HX: History of basal cell carcinoma; Additional info: Right-sided weakness TECHNIQUE: Imaging protocol: Computed tomographic angiography of the head with contrast. Exam focused on the arteries. 3D rendering (Not supervised by radiologist): MIP and/or 3D reconstructed images were created by the technologist. Radiation optimization: All CT scans at this facility use at least one of these dose optimization techniques: automated exposure control; mA and/or kV adjustment per patient size (includes targeted exams where dose is matched to clinical indication); or iterative reconstruction. Contrast material: OMNIPAQUE 350; Contrast volume: 75 ml; Contrast route: INTRAVENOUS (IV); COMPARISON: CT head wo con* [id number] 03/16/2022 3:22 PM RADIATION DOSE METRICS: Total DLP (mGy-cm): 1213.67 FINDINGS: ANTERIOR CIRCULATION: Right internal carotid artery: Unremarkable. Intracranial segment is patent with no significant stenosis. No aneurysm. Right middle cerebral artery: Unremarkable. No occlusion or significant stenosis. No aneurysm. Right anterior cerebral artery: Unremarkable. No occlusion or significant stenosis. No aneurysm. Left internal carotid artery: Unremarkable. Intracranial segment is patent with no significant stenosis. No aneurysm. Left middle cerebral artery: Unremarkable. No occlusion or significant stenosis. No aneurysm. Left anterior cerebral artery: Unremarkable. No occlusion or significant stenosis. No aneurysm. POSTERIOR CIRCULATION: Right vertebral artery: Unremarkable. No occlusion or significant stenosis. No aneurysm. Left vertebral artery: Unremarkable. No occlusion or significant stenosis. No aneurysm. Basilar artery: Unremarkable. No occlusion or significant stenosis. No aneurysm. Right posterior cerebral artery: Unremarkable. No occlusion or significant stenosis. No aneurysm. Left posterior cerebral artery: Unremarkable. No occlusion or significant stenosis. No aneurysm. Brain: No definite mass, mass effect, or midline shift. Cerebral ventricles: No ventriculomegaly. Bones/joints: Unremarkable. No acute fracture. Soft tissues: Unremarkable. PROCEDURE INFORMATION: Exam: CTA Neck With Contrast Exam date and time: 03/16/2022 5:25 PM Age: 56 years old Clinical indication: Numbness and weakness; Patient HX: History of basal cell carcinoma; Additional info: Right-sided weakness TECHNIQUE: Imaging protocol: Computed tomographic angiography of the neck with contrast. 3D rendering (Not supervised by radiologist): MIP and/or 3D reconstructed images were created by the technologist. Radiation optimization: All CT scans at this facility use at least one of these dose optimization techniques: automated exposure control; mA and/or kV adjustment per patient size (includes targeted exams where dose is matched to clinical indication); or iterative reconstruction. Contrast material: OMNIPAQUE 350; Contrast volume: 75 ml; Contrast route: INTRAVENOUS (IV); COMPARISON: CT head wo con* [id number] 03/16/2022 3:22 PM RADIATION DOSE METRICS: Total DLP (mGy-cm): 1213.67 FINDINGS: Right common carotid artery: No stenosis. No dissection or occlusion. Right internal carotid artery: No stenosis of the extracranial segment. No dissection or occlusion. Right external carotid artery: No occlusion or stenosis of the origin. Left common carotid artery: No stenosis. No dissection or occlusion. Left internal carotid artery: No stenosis of the extracranial segment. No dissection or occlusion. Left external carotid artery: No occlusion or stenosis of the origin. Right vertebral artery: No stenosis. No dissection or occlusion. Left vertebral artery: No stenosis. No dissection or occlusion. Soft tissues: Normal. No significant soft tissue swelling. Bones/joints: No acute fracture. CT/CT angio headneck* [id number] IMPRESSION: No large vessel stenosis or occlusion. IMPRESSION: No stenosis or occlusion. REFERENCES: NASCET CRITERIA. The degree of internal carotid artery stenosis is based on NASCET criteria. Normal is no stenosis. Mild is less than 50% stenosis. Moderate is 50-69% stenosis. Severe is 70% to 99% stenosis. Total occlusion is no detectable patent lumen.
[2022-03-16 15:51] LABS: Add Urine Microscopic? NO; Charge for UA Resulting for Rev
[2022-03-16 15:57] VITALS: BP 156/83; PULSE 59; RESP 18; O2SAT 96
[2022-03-16 15:57] LABS: Bilirubin Urine Neg (Negative); Blood Urine Neg (Negative); Glucose Urine UA Norm (Normal); Ketones Urine Negative (Negative); Leukocyte Esterase Urine Negative (Negative); Nitrate Urine Negative (Negative); Protein Urine Neg (Negative); Urine Appearance Clear (CLEAR); Urine Color Straw (Yellow); Urobilinogen Urine Norm (Negative); pH Urine 7 (5-7)
[2022-03-16] MEDS: iohexol 350 mg/mL 100 mL Btl IV (17:24)
[2022-03-16] MEDS: diphenhydrAMINE 50 mg/mL SDV 1mL 25 MG IVP (18:25)
[2022-03-16] MEDS: metoclopramide 5 mg/mL SDV 2 mL IVP (18:25)
--- NOTE | 2022-03-16 19:10 | PC.NURSE ---
Ambulated to the w standby assist.
[2022-03-16] MEDS: HYDROcodone-acetaminophen 5-325 mg Tablet 1 TAB PO (19:25)
[2022-03-16 19:31] VITALS: BP 156/96; PULSE 50; RESP 20; O2SAT 99
== END 2022-03-16 19:32 | disposition home or self-care (01) ==
PROVIDERS: Emergency Medicine; Emergency Provider Emergency Medicine; PCP Nurse Practitioner
DX: R51.9 Headache, unspecified (principal); R42 Dizziness and giddiness; F17.210 Nicotine dependence, cigarettes, uncomplicated
CPT/HCPCS: 70450; 70496; 70498; 80053; 81003; 83690; 85025; 96361; 96372; 96374; 96375; 99284; J1200; J2550; J2765; J7030; Q9967

== ENCOUNTER → 2022-04-02 10:39 | Outpatient (BNVA) | payer MEDICARE, SELFPAY | PROVIDERS: PCP Nurse Practitioner; Visit Provider Nurse Practitioner | DX: G43.509 Persistent migraine aura without cerebral infarction, not intractable, without status migrainosus (principal); E53.8 Deficiency of other specified B group vitamins | CPT/HCPCS: 82607 ==

== ENCOUNTER → 2022-07-05 08:30 | Outpatient (BNVA) | payer MEDICARE, SELFPAY | PROVIDERS: PCP Nurse Practitioner; Visit Provider Nurse Practitioner | DX: E53.8 Deficiency of other specified B group vitamins (principal) | CPT/HCPCS: 82607 ==

== ENCOUNTER 2022-10-11 13:49 | Outpatient (CLI) | payer MEDICARE, SELFPAY ==
--- NOTE | 2022-10-11 14:01 | XR_ITS ---
WS: [id number] KUB, AP view, 10/11/2022 Clinical Data: Renal Calculi Comparison: KUB, 07/02/2021. Findings: No abnormal intraabdominal masses or calcifications are seen. There is no dilatated small bowel or ev idence of obstruction. Bowel gas and fecal material obscure detail over both kidneys. There are right upper clips from a cho lecystectomy. There are phleboliths in the true pelvis. XR/XR KUB [id number] Impression: Negative KUB.
== END 2022-10-11 13:50 | disposition home or self-care (01) ==
PROVIDERS: PCP Nurse Practitioner; Visit Provider Urology
DX: N39.8 Other specified disorders of urinary system (principal); Z87.440 Personal history of urinary (tract) infections; N20.0 Calculus of kidney
CPT/HCPCS: 51798; 74018; 81003; 99213

== ENCOUNTER 2023-01-06 10:04 | Outpatient (CLI) | payer MEDICARE, SELFPAY ==
--- NOTE | 2023-01-06 10:16 | MM_ITS ---
WS: [id number] BILATERAL SCREENING DIGITAL TOMOSYNTHESIS MAMMOGRAM WITH CAD HISTORY: Z12.39 - Encounter for other screening for malignant neoplasm... COMPARISON: 06/02/2021, 11/20/2020, 09/05/2019 Bilateral CC and MLO views with tomosynthesis and synthetic mammography submitted. Computer aided det ection analyzed. Breast composition: The breasts are heterogeneously dense, which may obscure small masses. No suspici ous masses, microcalcifications or architectural distortion. MM/[place] [id number] IMPRESSION: BI-RADS: 1-Negative FOLLOW UP: 1 Year Follow-up
== END 2023-01-06 10:05 | disposition home or self-care (01) ==
LOC: RAD 10:06
PROVIDERS: PCP Nurse Practitioner; Visit Provider Nurse Practitioner
DX: Z12.31 Encounter for screening mammogram for malignant neoplasm of breast (principal)
CPT/HCPCS: 77063; 77067

== ENCOUNTER → 2023-01-10 09:48 | Outpatient (BNVA) | payer MEDICARE, SELFPAY | PROVIDERS: PCP Nurse Practitioner; Visit Provider Nurse Practitioner | DX: E53.8 Deficiency of other specified B group vitamins (principal) | CPT/HCPCS: 80053; 82607 ==

== ENCOUNTER → 2023-01-24 08:10 | Outpatient (BNVA) | payer MEDICARE, SELFPAY | PROVIDERS: PCP Nurse Practitioner; Visit Provider Dermatology | DX: C44.319 Basal cell carcinoma of skin of other parts of face (principal) | CPT/HCPCS: 12054; 17311 ==

== ENCOUNTER → 2023-02-02 13:29 | Outpatient (BNVA) | payer MEDICARE, SELFPAY | PROVIDERS: PCP Nurse Practitioner; Visit Provider Dermatology | DX: Z48.02 Encounter for removal of sutures (principal); L57.0 Actinic keratosis | CPT/HCPCS: 17000; 17003 ==

== ENCOUNTER 2023-03-12 07:33 | Emergency (ER) | payer MEDICARE, SELFPAY ==
[2023-03-12 07:38] VITALS: BP 128/87; PULSE 74; RESP 17; O2SAT 98; BMI 21.8
--- NOTE | 2023-03-12 07:49 | ED_ITS ---
HPI - Back Pain/Injury General: Chief Complaint: Back Pain/Injury Stated Complaint: back pain Time Seen by Provider: 03/12/23 07:49 History of Present Illness: Ms Bay is a 57-year-old lady with complex past medical history including remote history of back surgery, fibromyalgia, chronic back pain presenting to the emergency department for exacerbation of back pain. She reports being more active at the start of this month and essentially has had persistent worsening pain in the low back radiating down the right leg since 02/26. She denies falls or specific events. She has tried multiple home medications and topical therapies without sustained improvement. She denies loss of continence, saddle anesthesia, inability to control bladder. She does note back pain higher up as well which she attributes just to her body alignment being out of whack. No other specific changes in health, exacerbating, or alleviating factors identified. Onset (ago): week(s) Severity: moderate Similar Symptoms Previously: Yes Location: lumbar spine, right lower back and left lower back Exacerbating factors: movement, lifting and other Associated symptoms: Reports no associated symptoms Treatments prior to arrival: cold therapy, heat therapy, acetaminophen and other medications Review of Systems General: Reports: 10 or more systems reviewed and unremarkable except in HPI and below PFSH ED PFSH: Medical History Borderline personality disorder Family history of colon cancer GERD (gastroesophageal reflux disease) History of nonmelanoma skin cancer Migraine aura, persistent Neurogenic bladder Post-traumatic stress disorder, chronic Psychiatric care Renal calculi Tobacco use disorder Urolithiasis Voiding dysfunction Surgical History History of basal cell cancer History of History of colonoscopy 5 years ago History of esophagogastroduodenoscopy 2 years ago History of hysterectomy History of lumbar surgery History of tonsillectomy Status post laparoscopic cholecystectomy (02/11/22) Family History Mother , at age 72 Parkinson disease Cancer colon Father , at age 60 Cancer brain and liver Social History Smoking and tobacco status: current every day smoker cigarettes Years cigarettes smoked: 20 Second hand smoke exposure: Yes Smoking risk assessment/counseling performed?: Yes Tobacco counseling given: counseling >3 minutes Alcohol intake: never Desire information about alcohol rehabilitation?: No Counseling given: No Substance/Drug Use: never Desire information about substance/drug rehabilitation?: No Counseling given: No Caregiver/support person: No Lives independently: Yes Household members: spouse Housing: House Marital status: Number of children: 2 service: No Current occupational status: disabled Current occupational exposures/hazards: No Do you think of yourself as: Straight/Heterosexual Current gender identity: Female Physical Exam Const: COMMON NORMALS: alert GENERAL APPEARANCE: cooperative and well developed HENMT: COMMON NORMALS: normocephalic and atraumatic HEAD & SCALP: normocephalic and atraumatic Eye: COMMON NORMALS: conjunctivae normal CONJUNCTIVA: Yes conjunctivae normal SCLERA: sclerae normal Neck/C-Spine: COMMON NORMALS: supple GENERAL: Yes trachea midline Resp: COMMON NORMALS: normal respiratory effort EFFORT & INSPECTION: Yes a ble to speak in complete sentences Cardio: COMMON NORMALS: regular rate and regular rhythm RATE: regular rate RHYTHM: regular rhythm GI: COMMON NORMALS: Soft to palpation PALPATION: Yes Soft to palpation and No Tenderness to palpation present (GI) Back/Pelvis: OTHER: Generalized paraspinal and spinal tenderness essentially throughout the entire spine without step-offs or deformities. Right SI joint tenderness. Extremity: GENERAL: Yes normal exam except as noted and No edema Neuro: COMMON NORMALS: moves all extremities SENSORIUM/ORIENTATION: Yes alert and No Orientation impaired Psych: COMMON NORMALS: mental status grossly normal and Normal thought process present THOUGHT PROCESS: Normal thought process present Course Vital Signs: Vital signs: Vital Signs Pulse Rate 58 L 03/12/23 10:51 Respiratory Rate 18 03/12/23 09:25 Blood Pressure 164/87 03/12/23 10:51 Pulse Oximetry 95 03/12/23 10:51 Oxygen Delivery Me thod Room Air 03/12/23 08:35 MDM - Back Pain/Injury Medical Decision Making 57-year-old lady presenting with back pain. Exam as above. No red flag symptoms reported in clinical history. Patient is nontoxic. Given exam and clinical history no indication for imaging or labs at this time. Patient treated with Valium for muscle relaxation, antiemetic, steroids, multimodal approach to pain control and had improvement. Plan for outpatient orthopedic follow-up. The results of ED evaluation were discussed with the patient including prescriptions and/or symptomatic cares (if applicable) including appropriate and responsible use, followup plan, and return precautions. The patient verbalized understanding and felt safe for discharge. Medical Records I reviewed the patient's medical records. Labs I reviewed the patient's lab results. Discharge Plan Discharge Patient Disposition: Home Clinical Impression: Acute exacerbation of chronic low back pain, Lumbar radiculopathy Condition: Stable Prescriptions: New ondansetron 4 mg tablet,disintegrating 4 mg PO Q8H PRN (Reason: nausea and vomiting) Qty: 15 0RF cyclobenzaprine 10 mg tablet 10 mg PO TID PRN (Reason: muscle spasm) Qty: 20 0RF hydrocodone-acetaminophen 5-325 mg tablet 1 tab PO Q6H PRN (Reason: pain) Qty: 20 0RF No Action cholecalciferol (vitamin D3) 1,250 mcg (50,000 unit) capsule 50,000 unit PO DAILY@0800 albuterol sulfate 2.5 mg/0.5 mL solution for nebulization 10 mg INHALATION Q4H PRN (Reason: Allergy Symptoms) alfuzosin 10 mg tablet extended release 24 hr 10 mg PO DAILY Qty: 90 3RF vitamin E (dl, acetate) 450 mg (1,000 unit) capsule 450 mg PO DAILY riboflavin (vitamin B2) 400 mg tablet 400 mg PO DAILY prochlorperazine maleate [Compazine] 10 mg tablet 10 mg PO TID cholestyramine-aspartame 4 gram powder PO DAILY nicotine (polacrilex) 2 mg gum 2 mg buccal Q2H Qty: 50 2RF bupropion HCl [Wellbutrin XL] 300 mg tablet extended release 24 hr 300 mg PO QAM Qty: 30 1RF cyproheptadine 4 mg tablet 4 mg PO BEDTIME@2130 Qty: 30 2RF diazepam [Valium] 5 mg tablet 5 mg PO BID PRN (Reason: anxiety) Qty: 60 2RF duloxetine [Cymbalta] 60 mg capsule,delayed release(DR/EC) 120 mg PO DAILY@2130 Qty: 60 2RF trazodone 150 mg tablet 150 mg PO .HS Qty: 30 2RF topiramate [Topamax] 50 mg tablet 50 mg PO BID Qty: 60 2RF cyanocobalamin (vitamin B-12) 1,000 mcg/mL solution 1,000 mcg IM .monthly Qty: 1 5RF tizanidine 2 mg tablet 2 mg PO BID PRN (Reason: muscle spasticity) Qty: 60 5RF prednisone 20 mg tablet 20 mg PO DAILY Qty: 15 0RF Rx Instructions: 60 mg x 3 days 40 mg x 2 days 20 mg x 2 days Adult 50 Plus Probiotic 4 billion cell capsule 4,000 mmu cells PO DAILY@0800 Rx Instructions: administer with a meal Discharge Orders: Discharge ED (Routine); Ordered 03/12/23 Ordered By: Abhi Oreilly Referrals: Frederick Stark, [facility] [Primary Care Provider] - Discharge Diet: Usual diet Discharge Activity: Increase activity as tolerated Patient Instructions: Lumbar Radiculopathy (ED), Back Pain (ED), Opioid Safety Activity Restrictions/Additional Instructions: Thank you for visiting the emergency department. You were seen and evaluated for back pain which is likely exacerbation of chronic issues. We are pleased that you had some improvement with the ED treatment. I will prescribe muscle relaxers, pain medication, antinausea medication. Use these cautiously and watch out for signs of oversedation. Please follow-up with your primary care provider and spine surgeon. Return to the emergency department for uncontrolled symptoms, any new neurologic symptoms, or anything else that you are concerned about and feel needs emergency department evaluation. 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
[2023-03-12] MEDS: acetaminophen 500 mg Tablet 1000 MG PO (08:28)
[2023-03-12] MEDS: diazePAM 2 mg Tablet PO (08:28)
[2023-03-12] MEDS: ondansetron 2 mg/ML SDV 2 mL 4 MG IVP (08:31)
[2023-03-12] MEDS: dexamethasone 10 mg/mL INJ IVP (08:32)
[2023-03-12 08:35] VITALS: PULSE 53; RESP 16; O2SAT 95
[2023-03-12 09:25] VITALS: RESP 18
[2023-03-12] MEDS: morphine 4 mg/mL SDV 1 mL IM (09:25)
[2023-03-12] MEDS: methocarbamol 750 mg Tablet PO (09:25)
[2023-03-12] MEDS: HYDROcodone-acetaminophen 5-325 mg Tablet 1 TAB PO (10:46)
[2023-03-12] MEDS: ondansetron 4 MG Tablet PO (10:46)
[2023-03-12 10:51] VITALS: BP 164/87; PULSE 58; O2SAT 95
== END 2023-03-12 10:53 | disposition home or self-care (01) ==
PROVIDERS: Emergency Provider Emergency Medicine; PCP Nurse Practitioner
DX: M54.50 Low back pain, unspecified (principal); G89.29 Other chronic pain; M54.16 Radiculopathy, lumbar region
CPT/HCPCS: 96372; 96374; 96375; 99284; J1100; J2270; J2405; Q0162

== ENCOUNTER → 2023-03-17 10:43 | Outpatient (BNVA) | payer MEDICARE, SELFPAY | PROVIDERS: PCP Nurse Practitioner; Visit Provider Physician Assistant | DX: M54.16 Radiculopathy, lumbar region (principal); M51.36 Other intervertebral disc degeneration, lumbar region; M79.7 Fibromyalgia | CPT/HCPCS: 72110; 99203 ==

== ENCOUNTER 2023-04-14 09:39 | Inpatient (IN) | payer MEDICARE, SELFPAY ==
[2023-04-14 09:55] VITALS: BP 140/87; PULSE 80; RESP 17; TEMP 37; O2SAT 96
--- NOTE | 2023-04-14 10:55 | ED.C_ITS ---
HPI - Psych General: Chief Complaint: Psychiatric Symptoms Stated Complaint: possible reaction to meds Time Seen by Provider: 04/14/23 10:37 Source: patient and family Mode of arrival: ambulatory History of Present Illness: 57-year-old female presents emergency room essentially in crisis. She has a history of bipolar she has been manic for the last several days. About 5 to 6 weeks ago she came into the ER with a complaint of back pain she was given pain medication steroids muscle relaxer. This actually seemed to precipitate a manic episode. On April 05 she was prescribed Seroquel she took that for 4 days and then stopped she has been off of that for for the last 5 days. She is fixated on the diagnosis of withdraw from the Seroquel. She has had some suicidal ideations and wanted her to shoot her she has not done anything to advance lethality at this point. MD complaint: suicidal ideation and feels depressed Onset (ago): day(s) Duration: constant Exacerbating factors: medication Associated symptoms: Reports depression, suicidal ideation and racing thoughts; Deny auditory hallucinations, visual hallucinations, delusions, homicidal ideation or other Treatments prior to arrival: none If self harm: admits thoughts of self harm Review of Systems Const: Reports: fatigue; Denies: fever(s), chills or malaise Card: Denies: chest pain, palpitations, edema, dyspnea on exertion or orthopnea Resp: Denies: dyspnea, productive cough or non-productive cough GI: Denies: abdominal pain, nausea, vomiting, hematemesis, coffee ground emesis, diarrhea, constipation, bloating, hematochezia or melena : Denies: flank pain, difficulty voiding, dysuria, urinary frequency or urinary urgency Skin/Breast: Denies: rash or pruritus Psych: Reports: anxiety, depression, mood swings and suicidal ideation; Denies: visual hallucinations, auditory hallucinations or homicidal ideation PFS ED PFSH: Medical History Borderline personality disorder Family history of colon cancer GERD (gastroesophageal reflux disease) History of nonmelanoma skin cancer Migraine aura, persistent Neurogenic bladder Post-traumatic stress disorder, chronic Psychiatric care Renal calculi Tobacco use disorder Urolithiasis Voiding dysfunction Surgical History History of basal cell cancer History of History of colonoscopy 5 years ago History of esophagogastroduodenoscopy 2 years ago History of hysterectomy History of lumbar surgery History of tonsillectomy Status post laparoscopic cholecystectomy (02/11/22) Family History Mother , at age 72 Parkinson disease Cancer colon Father , at age 60 Cancer brain and liver Social History Smoking and tobacco status: current every day smoker cigarettes Years cigarettes smoked: 20 Second hand smoke exposure: Yes Smoking risk assessment/counseling performed?: Yes Tobacco counseling given: counseling >3 minutes Alcohol intake: never Desire information about alcohol rehabilitation?: No Counseling given: No Substance/Drug Use: never Desire information about substance/drug rehabilitation?: No Counseling given: No Caregiver/support person: No Lives independently: Yes Household members: spouse Housing: House Marital status: Number of children: 2 service: No Current occupational status: disabled Current occupational exposures/hazards: No Do you think of yourself as: Straight/Heterosexual Current gender identity: Female Physical Exam Const: COMMON NORMALS: no acute distress GENERAL APPEARANCE: cooperative and comfortable ORIENTATION/CONSCIOUSNESS: Yes awake, Yes oriented to person, Yes oriented to place and Yes oriented to time HENMT: COMMON NORMALS: normocephalic, atraumatic and hearing grossly normal bilaterally HEAD & SCALP: normocephalic and atraumatic Resp: COMMON NORMALS: normal respiratory effort, No retractions, No use of accessory muscles and clear to auscultation bilaterally AUSCULTATION: clear to auscultation bilaterally Cardio: COMMON NORMALS: regular rate, regular rhythm and No murmurs present (Cardio) RATE: regular rate RHYTHM: regular rhythm GI: COMMON NORMALS: Soft to palpation and No hepatosplenomegaly present AUSCULTATION: Yes normoactive bowel sounds PALPATION: Yes Soft to palpation, No Tenderness to palpation present (GI), No Guarding due to palpation present (GI) and Yes No hepatosplenomegaly present Extremity: COMMON NORMALS: normal to inspection, capillary refill normal, no clubbing, cyanosis or edema, no calf tenderness and no pedal edema Neuro: SENSORIUM/ORIENTATION: Yes oriented to person, Yes oriented to place and Yes oriented to time Psych: THOUGHT CONTENT: No delusions Skin: COMMON NORMALS: no rashes or lesions noted GENERAL SKIN EXAM: no rashes or lesions noted Course Vital Signs: Vital signs: Vital Signs Temperature 98.6 F 04/18/23 06:00 Pulse Rate 62 04/18/23 06:00 Respiratory Rate 18 04/18/23 06:00 Blood Pressure 114/78 04/18/23 06:00 Pulse Oximetry 99 04/18/23 06:00 Oxygen Delivery Me thod Room Air 04/18/23 06:00 MDM - Psych Medical Decision Making Patient extremely anxious she has been in a manic stage and is decompensated at this point. She is having suicidal thoughts does not advance lethality to this point. Discussed with on-call psychiatry will admit. Medical Records I reviewed the patient's medical records. Lab Data I reviewed the patient's lab results. 04/14/23 10:56 04/14/23 10:56 Laboratory Results WBC 4.8 10^3/uL (4.0-10.0) 04/14/23 10:56 RBC 3.92 10^6/uL (4.1-5.3) L 04/14/23 10:56 Hgb 12.6 g/dL (11.5-15.3) 04/14/23 10:56 Hct 38.3 % (37.0-47.0) 04/14/23 10:56 MCV 97.7 fl (81-99) 04/14/23 10:56 MCH 32.1 pg (28.0-34.0) 04/14/23 10:56 MCHC 32.9 g/dL (30.0-36.0) 04/14/23 10:56 RDW 12.6 % (12.1-15.1) 04/14/23 10:56 Plt Count 252 10^3/cmm (130-400) 04/14/23 10:56 MPV 9.6 fL (7.4-10.4) 04/14/23 10:56 Neut % (Auto) 50.9 % 04/14/23 10:56 Lymph % (Auto) 38.9 % 04/14/23 10:56 [place] % (Auto) 7.9 % 04/14/23 10:56 Eos % (Auto) 1.7 % 04/14/23 10:56 Baso % (Auto) 0.4 % 04/14/23 10:56 Neut # (Auto) 2.45 10^3/uL (1.8-7.7) 04/14/23 10:56 Lymph # (Auto) 1.9 10^3/uL (0.8-4.8) 04/14/23 10:56 [place] # (Auto) 0.4 10^3/uL (0.2-0.9) 04/14/23 10:56 Eos # (Auto) 0.1 10^3/uL (0.0-0.8) 04/14/23 10:56 Baso # (Auto) 0.0 10^3/uL (0.0-0.1) 04/14/23 10:56 Nucleated RBC % (auto) 0 % 04/14/23 10:56 Nucleated RBCs # 0.0 /100WBC 04/14/23 10:56 Sodium 143 mmol/L (136-145) 04/14/23 10:56 Potassium 3.9 mmol/L (3.5-5.1) 04/14/23 10:56 Chloride 108 mmol/L (98-107) H 04/14/23 10:56 Carbon Dioxide 26 mmol/L (22-29) 04/14/23 10:56 Anion Gap 12.9 (5-19) 04/14/23 10:56 BUN 5 mg/dL (6-20) L 04/14/23 10:56 Creatinine 0.8 mg/dL (0.5-0.9) 04/14/23 10:56 GFR Calculation 73.4 mL/min (90-130) L 04/14/23 10:56 Glucose 97 mg/dL (65-115) 04/14/23 10:56 Calculated Osmolality 293 mOsm/kg (285-295) 04/14/23 10:56 Calcium 8.6 mg/dL (8.5-10.5) 04/14/23 10:56 Total Bilirubin 0.3 mg/dL (0.15-1.2) 04/14/23 10:56 AST 14 U/L (0-32) 04/14/23 10:56 ALT 14 U/L (0-33) 04/14/23 10:56 Alkaline Phosphatase 84 U/L (35-105) 04/14/23 10:56 Total Protein 6.3 g/dL (6.6-8.7) L 04/14/23 10:56 Albumin 4.1 g/dL (3.5-5.2) 04/14/23 10:56 Globulin 2.2 g/dL (1.3-4.6) 04/14/23 10:56 Urine Color Yellow (Yellow) 04/14/23 11:23 Urine Appearance Clear (CLEAR) 04/14/23 11:23 Urine pH 7 (5-7) 04/14/23 11:23 Ur Specific [place] 1.000 (1.005-1.030) L 04/14/23 11:23 Urine Protein Neg (Negative) 04/14/23 11:23 Urine Glucose (UA) Norm (Normal) 04/14/23 11:23 Urine Ketones Negative (Negative) 04/14/23 11:23 Urine Blood Neg (Negative) 04/14/23 11:23 Urine Nitrate Negative (Negative) 04/14/23 11:23 Urine Bilirubin Neg (Negative) 04/14/23 11:23 Urine Urobilinogen Norm mg/dL (Negative) 04/14/23 11:23 Ur Leukocyte Esterase Trace (Negative) H 04/14/23 11:23 Urine RBC 0-4 /hpf (0-2) H 04/14/23 11:23 Urine WBC 0-4 /hpf (0-5) H 04/14/23 11:23 Ur Squamous Epith Cells 0-4 /hpf (0-5) H 04/14/23 11:23 Amorphous Sediment Not Reportable 04/14/23 11:23 Urine Bacteria None /hpf (NONE) 04/14/23 11:23 Salicylates < 0.3 mg/dL (3-10) L 04/14/23 10:56 Urine Opiates Screen Negative ng/mL (Negative) 04/14/23 11:23 Acetaminophen < 5.0 ug/mL (10-30) L 04/14/23 10:56 Ur Barbiturates Screen Negative ng/mL (Negative) 04/14/23 11:23 Ur Phencyclidine Scrn Negative ng/mL (Negative) 04/14/23 11:23 Ur Amphetamines Screen Negative ng/mL (Negative) 04/14/23 11:23 U Benzodiazepines Scrn Positive ng/mL (Negative) H 04/14/23 11:23 Urine Cocaine Screen Negative ng/mL (Negative) 04/14/23 11:23 U Marijuana (THC) Screen Negative ng/mL (Negative) 04/14/23 11:23 Discharge Plan Discharge Patient Disposition: Admitted As Inpatient Admit Provider: Giuseppe Reyes Clinical Impression: Suicidal ideation, Borderline personality disorder, Essential hypertension Condition: Stable 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
[2023-04-14 11:03] LABS: Basophils % 0.4 %; Eosinophils # 0.1 10^3/uL (0.0-0.8); Eosinophils % 1.7 %; Hematocrit 38.3 % (37.0-47.0); Hemoglobin 12.6 g/dL (11.5-15.3); Lymphocytes # 1.9 10^3/uL (0.8-4.8); Lymphocytes % 38.9 %; Mean Corpuscular HGB Conc 32.9 g/dL (30.0-36.0); Mean Corpuscular Hemoglobin 32.1 pg (28.0-34.0); Mean Corpuscular Volume 97.7 fl (81-99); Mean Platelet Volume 9.6 fL (7.4-10.4); Monocytes # 0.4 10^3/uL (0.2-0.9); Monocytes % 7.9 %; Neutrophils # 2.45 10^3/uL (1.8-7.7); Neutrophils % 50.9 %; Nucleated Red Blood Cells % 0 %; Platelet Count 252 10^3/cmm (130-400); Red Blood Count 3.92 10^6/uL (4.1-5.3); Red Cell Distribution Width 12.6 % (12.1-15.1); White Blood Count 4.8 10^3/uL (4.0-10.0)
[2023-04-14 11:16] VITALS: BP 129/74; PULSE 59; RESP 16; O2SAT 98
[2023-04-14 11:26] LABS: Alanine Aminotransferase 14 U/L (0-33); Albumin Level 4.1 g/dL (3.5-5.2); Alkaline Phosphatase 84 U/L (35-105); Anion Gap 12.9 (5-19); Aspartate Amino Transferase 14 U/L (0-32); Blood Urea Nitrogen 5 mg/dL (6-20); Calcium 8.6 mg/dL (8.5-10.5); Carbon Dioxide 26 mmol/L (22-29); Chloride 108 mmol/L (98-107); Globulin 2.2 g/dL (1.3-4.6); Glomerular Filtration Rate 73.4 mL/min (90-130); Glucose 97 mg/dL (65-115); Osmolality Calculated 293 mOsm/kg (285-295); Potassium 3.9 mmol/L (3.5-5.1); Sodium 143 mmol/L (136-145); Total Bilirubin 0.3 mg/dL (0.15-1.2); Total Protein 6.3 g/dL (6.6-8.7)
[2023-04-14 11:31] LABS: Acetaminophen < 5.0 ug/mL (10-30); Salicylate < 0.3 mg/dL (3-10)
--- NOTE | 2023-04-14 12:08 | PC.PHAR ---
pt brought in med bottles of current medication and med bottles of meds she no longer takes-pt and pts states the pt no longer takes flexeril 10mg tid prn filled 03/24/23 30d/s-zofran odt 4mg q8h prn filled 03/24/23 5d/s-norco 5/325mg one tab q6h prn filled 03/12/23-valsartan 40mg daily filled 03/24/23 30d/s and compazine 10mg tid prn headaches filled 01/20/23 10d/s-pt states seroquel 50mg hs was dced 04/10/23 ext shows filled 04/05/23 30d/s-notes are made in the pharmacy comments
[2023-04-14 13:45] LABS: Amphetamines Screen Urine Negative (Negative); Barbiturates Screen Urine Negative (Negative); Benzodiazepines Screen Urine Positive (Negative); Cocaine Screen Urine Negative (Negative); Opiate Screen Urine Negative (Negative); PCP Screen Urine Negative (Negative); THC Screen Urine Negative (Negative)
[2023-04-14 13:46] LABS: Add Urine Microscopic? YES; Bilirubin Urine Neg (Negative); Blood Urine Neg (Negative); Glucose Urine UA Norm (Normal); Ketones Urine Negative (Negative); Leukocyte Esterase Urine Trace (Negative); Nitrate Urine Negative (Negative); Protein Urine Neg (Negative); Urine Appearance Clear (CLEAR); Urine Color Yellow (Yellow); Urobilinogen Urine Norm (Negative); pH Urine 7 (5-7)
[2023-04-14 13:47] LABS: Add Urine Culture? No; RBC Urine 0-4 /hpf (0-2); Squamous Epithelial Cell Urine 0-4 /hpf (0-5); WBC Urine 0-4 /hpf (0-5)
[2023-04-14 14:19] VITALS: BP 132/91; PULSE 70; RESP 18; TEMP 36.7; O2SAT 99
--- NOTE | 2023-04-14 15:28 | ECG_ITS ---
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 Measurements Intervals [place] Rate: 50 P: 34 ME: 145 QRS: 54 QRSD: 98 T: 34 QT: 434 QTc: 398 Interpretive Statements SINUS BRADYCARDIA Compared to ECG 01/12/2022 10:01:28 No significant changes Electronically Signed On 04-14-2023 16:23:42 CDT by Pauly Vivas M.D. [id number]
[2023-04-14 15:30] VITALS: PULSE 50
[2023-04-14] MEDS: benztropine 1 mg Tablet PO (15:36)
[2023-04-14] MEDS: ondansetron 4 MG Tablet PO ×2 (17:33→20:21)
[2023-04-14] MEDS: nicotine 4 mg lozenge MUCOUS MEM (20:21)
[2023-04-14] MEDS: trazodone 50 mg Tablet PO ×2 (20:22→23:25)
[2023-04-14 20:27] VITALS: BP 113/71; PULSE 82; RESP 16; TEMP 36.7; O2SAT 99
[2023-04-14] MEDS: loperamide 2 mg Capsule PO (20:47)
[2023-04-14] MEDS: duloxetine 60 mg Capsule 120 MG PO (21:28)
[2023-04-15] MEDS: lidocaine 5% Patch 1 PATCH TOPICAL ×2 (02:48→20:40)
[2023-04-15 06:00] VITALS: BP 144/79; PULSE 63; RESP 16; O2SAT 96
[2023-04-15] MEDS: buPROPion XL (24 HR) 300 mg Tablet PO (06:19)
[2023-04-15] MEDS: nicotine 4 mg lozenge MUCOUS MEM ×3 (06:25→20:40)
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
[2023-04-15] MEDS: alfuzosin 10 mg ER Tablet PO (07:20)
[2023-04-15] MEDS: benztropine 1 mg Tablet PO (07:21)
[2023-04-15] MEDS: topiramate 25 mg Tablet 50 MG PO ×2 (07:21→17:05)
[2023-04-15] MEDS: ondansetron 4 MG Tablet PO (12:51)
[2023-04-15] MEDS: diazePAM 5 mg Tablet 2.5 MG PO (13:41)
[2023-04-15 14:00] VITALS: BP 103/69; PULSE 71; RESP 16; TEMP 36.8; O2SAT 97
[2023-04-15] MEDS: duloxetine 60 mg Capsule 120 MG PO (20:40)
[2023-04-15] MEDS: trazodone 150 mg Tablet PO (20:40)
[2023-04-15 22:00] VITALS: RESP 18
[2023-04-16] MEDS: hyDROXYzine 25 mg Capsule 50 MG PO ×4 (00:11→21:18)
[2023-04-16] MEDS: alfuzosin 10 mg ER Tablet PO (05:15)
[2023-04-16] MEDS: buPROPion XL (24 HR) 300 mg Tablet PO (05:15)
[2023-04-16 06:00] VITALS: BP 107/64; PULSE 66; RESP 15; O2SAT 97
[2023-04-16] MEDS: tizanidine 4 mg Tablet 2 MG PO ×2 (08:07→18:21)
[2023-04-16] MEDS: topiramate 25 mg Tablet 50 MG PO ×2 (08:07→18:21)
[2023-04-16] MEDS: diazePAM 5 mg Tablet 2.5 MG PO ×2 (08:07→18:21)
[2023-04-16] MEDS: nicotine 21 mg Patch 1 PATCH TRANSDERMA (08:07)
[2023-04-16] MEDS: benztropine 1 mg Tablet PO ×2 (10:57→18:22)
--- NOTE | 2023-04-16 10:59 | PC.NURSE ---
Pt stated that she was having difficulties swallowing this morning.
[2023-04-16] MEDS: ondansetron 4 MG Tablet PO (13:37)
[2023-04-16 14:00] VITALS: BP 115/76; PULSE 64; RESP 18; TEMP 36.8; O2SAT 99
[2023-04-16] MEDS: haloperidol 5 mg Tablet PO (15:36)
[2023-04-16] MEDS: paliperidone ER 3 mg Tablet PO (18:21)
--- NOTE | 2023-04-16 18:55 | P.NPUPN_ITS ---
Subjective NPU Subjective: Patient presented today reporting that she is continue to have the symptoms she describes as having lack of control of her muscles and reports that this is improved with the Cogentin. We discussed the risk benefits and alternatives of making the Cogentin a standing dose and adding Invega 3 mg p.o. daily and she understood and agreed to proceed as is documented in this note. She continued to be quite somatically preoccupied. She did report some dry mouth that could be related to the Cogentin. We discussed staying hydrated. Mental Status Exam MSE Comments: This is an?underweight, diminutive, white female, in hospital scrubs, with limited grooming and eye contact. No abnormal movements, except for significant psychomotor retardation. Mostly cooperative with exam in mild distress. Speech was decreased rate and volume, with limited prosody. Mood described as depressed; affect congruent. Thought process, organized. Thought content: patient denied any suicidal or homicidal ideation, there were no delusions reported or noted, patient denied any auditory or visual hallucinations. Atte ntion, concentration, and memory appeared intact, but none were formally tested. Alert and oriented times three. Insight and judgment are limited. Impulse control is limited. Vitals/I&O/Wt Last Vital Signs Temp 98.9 F 04/16/23 19:31 Pulse 71 04/16/23 19:31 Resp 18 04/16/23 19:31 BP 103/68 04/16/23 19:31 Pulse Ox 99 04/16/23 19:31 O2 Del Method Room Air 04/16/23 19:31 Weight last 48 hrs Weight 50.077 kg Data NPU 04/14/23 10:56 04/14/23 10:56 A&P Assessment and plan (1) Essential hypertension: (2) DDD (degenerative disc disease), lumbar: (3) Tobacco use disorder: (4) Post-traumatic stress disorder, chronic: (5) Borderline personality disorder: Plan This is a 57-year-old white female with a long history of mental health treatment and some past addiction treatment who presents with reports of recent manic episode after treatment with prednisone in the hospital and recent akathisia/dyskinesia/movement disorder or musculoskeletal complaints after a trial of Seroquel which seemed to improve with addition of Cogentin with reports of suicidal thoughts as things got really bad. 1. Continue current medication.? Speak to outside provider and consider another mood stabilizer i.e. Invega or Geodon. Start Invega 3 mg p.o. daily and consider increase tomorrow. 2. Encourage individual, group, and milieu therapy. 3. Continue q-15-minute checks for safety. 4. Recommend sober living treatment at the highest level of care to which the patient is willing to commit. Involuntary Hold Information 96 Hour Hold: 96 Hour Involuntary Admission: No Attestations [facility] Medical Necessity Statement*: Inpatient hospitalization is medically necessary and the clinically appropriate intervention, at this time. We will monitor medications and make changes as indicated. Likely length of stay is 3-5 days. Coding Level of Care Code Acute Code for [facility] Fwd Diagnoses Essential hypertension I10 DDD (degenerative disc disease), lumbar M51.36 Tobacco use disorder F17.200 Post-traumatic stress disorder, chronic F43.12 Borderline personality disorder F60.3
[2023-04-16 19:31] VITALS: BP 103/68; PULSE 71; RESP 18; TEMP 37.2; O2SAT 99
[2023-04-16] MEDS: trazodone 150 mg Tablet PO (21:18)
[2023-04-16] MEDS: duloxetine 60 mg Capsule 120 MG PO (21:18)
[2023-04-16] MEDS: lidocaine 5% Patch 1 PATCH TOPICAL (21:19)
[2023-04-17 06:00] VITALS: BP 110/71; PULSE 63; RESP 16; O2SAT 95
--- NOTE | 2023-04-17 07:59 | PC.NURSE ---
in room sitting on bed. Patient reports some anxiety and depression because nobody came to see her yesterday. Patient says she doesn't feel manic, but that everything has to be a certain way. She is afraid to touch things because of her fear of germs. Patient also states that she has had thoughts of harming herself but doesn't have the energy to follow through. No plan to commit suicide, she went on to say that she knows committing suicide is a sin.
--- NOTE | 2023-04-17 08:00 | W.PM.NPUPNS ---
Subjective NPU Subjective: Patient presented today reporting that she is feeling okay. She then went on a long laundry list of somatic issues, possible side effects and concerns. We discussed some of this somatic preoccupation. She was reporting the medication/Invega seem to be helping but was unsure whether we should do the planned increase to 6 mg or stay at 3 mg. We discussed the fact that if the 6 mg was too much or felt some sort of way that we would be supportive getting back to 3 mg. Otherwise she endorsed that she was doing better than when she got here. We discussed working on discharge planning and creating a target date once we meet with the treatment team tomorrow. Mental Status Exam MSE Comments: This is an?underweight, diminutive, white female, in hospital scrubs, with limited grooming and eye contact. No abnormal movements, except for significant psychomotor retardation. Mostly cooperative with exam in mild distress. Speech was decreased rate and volume, with limited prosody. Mood described as depressed; affect congruent. Thought process, organized. Thought content: patient denied any suicidal or homicidal ideation, there were no delusions reported or noted, patient denied any auditory or visual hallucinations. Attention, concentration, and memory appeared intact, but none were formally tested. Alert and oriented times three. Insight and judgment are limited. Impulse control is limited. Vitals/I&O/Wt Last Vital Signs Temp 98.9 F 04/16/23 19:31 Pulse 63 04/17/23 06:00 Resp 16 04/17/23 06:00 BP 110/71 04/17/23 06:00 Pulse Ox 95 04/17/23 06:00 O2 Del Method Room Air 04/16/23 19:31 Weight last 48 hrs Weight 50.077 kg Data NPU 04/14/23 10:56 04/14/23 10:56 A&P Assessment and plan (1) Essential hypertension: (2) DDD (degenerative disc disease), lumbar: (3) Tobacco use disorder: (4) Post-traumatic stress disorder, chronic: (5) Borderline personality disorder: Plan This is a 57-year-old white female with a long history of mental health treatment and some past addiction treatment who presents with reports of recent manic episode after treatment with prednisone in the hospital and recent akathisia/dyskinesia/movement disorder or musculoskeletal complaints after a trial of Seroquel which seemed to improve with addition of Cogentin with reports of suicidal thoughts as things got really bad. 1. Continue current medication.? Speak to outside provider and consider another mood stabilizer i.e. Invega or Geodon. Started Invega 3 mg p.o. daily and increased to 6 mg p.o. daily. 2. Encourage individual, group, and milieu therapy. 3. Continue q-15-minute checks for safety. 4. Recommend sober living treatment at the highest level of care to which the patient is willing to commit. Involuntary Hold Information 96 Hour Hold: 96 Hour Involuntary Admission: No Attestations NPU Medical Necessity Statement*: Inpatient hospitalization is medically necessary and the clinically appropriate intervention, at this time. We will monitor medications and make changes as indicated. Likely length of stay is 2-4 days. Coding Level of Care Code Acute Code for g Fwd Diagnoses Essential hypertension I10 DDD (degenerative disc disease), lumbar M51.36 Tobacco use disorder F17.200 Post-traumatic stress disorder, chronic F43.12 Borderline personality disorder F60.3
[2023-04-17] MEDS: polyethylene glycol 3350 Pkt 17 gm PO (08:02)
[2023-04-17] MEDS: buPROPion XL (24 HR) 300 mg Tablet PO (08:02)
[2023-04-17] MEDS: alfuzosin 10 mg ER Tablet PO (08:02)
[2023-04-17] MEDS: nicotine 21 mg Patch 1 PATCH TRANSDERMA (08:02)
[2023-04-17] MEDS: topiramate 25 mg Tablet 50 MG PO ×2 (08:05→17:07)
[2023-04-17] MEDS: benztropine 1 mg Tablet PO ×2 (08:05→17:07)
[2023-04-17] MEDS: paliperidone ER 6 mg Tablet PO (08:06)
[2023-04-17] MEDS: calcium carbonate 500 mg Chew Tablet 1000 MG PO ×2 (09:42→14:27)
--- NOTE | 2023-04-17 09:48 | PC.NURSE ---
This nurse removed lidocane patch from patient's lower back at 0944. Disposed off patch properly.
[2023-04-17] MEDS: hyDROXYzine 25 mg Capsule 50 MG PO (12:06)
--- NOTE | 2023-04-17 12:07 | PC.NURSE ---
Patient reports moderate anxiety related to her visit with the doctor. Attempts by this nurse to distract patient were unsuccessful. Patient given 50mg Vistaril PO. Will continue to monitor patient.
[2023-04-17 14:00] VITALS: BP 125/80; PULSE 66; RESP 18; TEMP 37; O2SAT 100
--- NOTE | 2023-04-17 16:11 | PC.NURSE ---
Patient stated to this nurse that she feels similar to how she feels before she experiences anaphylaxis--raspy voice and crawling sensation on her head. Patient denies having had any food allergies or consuming any food. No recent meds given. This nurse ordered Benadryl 50mg PO. Will continue to monitor patient
[2023-04-17] MEDS: diphenhydrAMINE 50 mg Capsule PO (16:40)
[2023-04-17] MEDS: tizanidine 4 mg Tablet 2 MG PO (18:12)
--- NOTE | 2023-04-17 18:14 | PC.NURSE ---
tIZANADINE 2MG GIVEN TO PATIENT FOR BACK SPASMS.
[2023-04-17] MEDS: ondansetron 4 MG Tablet PO (18:35)
[2023-04-17] MEDS: duloxetine 60 mg Capsule 120 MG PO (20:42)
[2023-04-17] MEDS: lidocaine 5% Patch 1 PATCH TOPICAL (20:43)
[2023-04-17] MEDS: trazodone 150 mg Tablet PO (20:43)
[2023-04-17 20:57] VITALS: BP 102/72; PULSE 73; RESP 17; TEMP 37; O2SAT 98
[2023-04-18] MEDS: cetylpyridinium Lozenge 1 EACH MUCOUS MEM (01:47)
[2023-04-18 06:00] VITALS: BP 114/78; PULSE 62; RESP 18; TEMP 37; O2SAT 99
[2023-04-18] MEDS: calcium carbonate 500 mg Chew Tablet 1000 MG PO ×2 (06:44→12:51)
--- NOTE | 2023-04-18 07:34 | PC.NURSE ---
Patient came up to this nurse, stating that she has a rapid heart beat. This nurse checked her pulse and listened to her heart. Normal sinus rhythm. HR 68bpm. This nurse informed patient of this. Patient rating anxiety 10/10, because of everything . Depression is rated 5/10. Patient stated that she has been laying in her room trying to think of ways to kill herself. When asked why she wants to kill herself, patient stated I don't know .
[2023-04-18] MEDS: benztropine 1 mg Tablet PO ×2 (08:19→17:17)
[2023-04-18] MEDS: topiramate 25 mg Tablet 50 MG PO ×2 (08:19→17:17)
[2023-04-18] MEDS: paliperidone ER 6 mg Tablet PO (08:19)
[2023-04-18] MEDS: buPROPion XL (24 HR) 300 mg Tablet PO (08:19)
[2023-04-18] MEDS: alfuzosin 10 mg ER Tablet PO (08:20)
[2023-04-18] MEDS: polyethylene glycol 3350 Pkt 17 gm PO (08:20)
[2023-04-18] MEDS: ondansetron 4 MG Tablet PO ×2 (09:29→16:45)
[2023-04-18] MEDS: nicotine 21 mg Patch 1 PATCH TRANSDERMA (09:29)
[2023-04-18] MEDS: hyDROXYzine 25 mg Capsule 50 MG PO ×2 (09:29→16:45)
--- NOTE | 2023-04-18 09:31 | PC.NURSE ---
Patient reporting anxiety 05/05. Attempts to lower anxiety were unsuccessful. Patient given 50mg Vistaril PO. Patient also reported nausea. 4mg Zofran PO administered to patient. Patient is unsure of what is causing her anxiety. Patient says part of it may be because she is here.
--- NOTE | 2023-04-18 09:48 | PC.NURSE ---
Removed lidocaine patch from patient's lower back at 0947, disposed of in appropriate receptacle.
--- NOTE | 2023-04-18 12:14 | P.NPUPN_ITS ---
Subjective NPU Subjective: Patient presented today reporting that she is feeling some continued shakiness. She was endorsing some frogginess in her throat and reported that she was not easily heard by people. We discussed that she sounded fine to this teletypewriter operator. She also talked about multiple concerns some somatic others psychological like memory. She is dealing with her having early onset dementia we disc ussed how the combination of her natural aging and concerns that have been brought to the front by her 's issues could be creating some psychosomatic challenges if you will. She did bring up questions about discharge and we discussed making sure that she was able to manage the medications and the changes including the increase in Cogentin today. Mental Status Exam MSE Comments: This is an?underweight, diminutive, white female, in hospital scrubs, with limited grooming and eye contact. No abnormal movements, except for significant psychomotor retardation. Mostly cooperative with exam in mild distress. Speech was decreased rate and volume, with limited prosody. Mood described as depressed may be a little better but not liking the shakiness; affect congruent. Thought process, organized. Thought content: patient denied any suicidal or homicidal ideation, there were no delusions reported or noted, patient denied any auditory or visual hallucinations. Attention, concentration, and memory appeared intact, but none were formally tested. Alert and oriented times three. Insight and judg ment are limited. Impulse control is limited. Vitals/I&O/Wt Last Vital Signs Temp 98.6 F 04/18/23 06:00 Pulse 62 04/18/23 06:00 Resp 18 04/18/23 06:00 BP 114/78 04/18/23 06:00 Pulse Ox 99 04/18/23 06:00 O2 Del Method Room Air 04/18/23 06:00 Weight last 48 hrs Weight 50.077 kg Data NPU 04/14/23 10:56 04/14/23 10:56 A&P Assessment and plan (1) Essential hypertension: (2) DDD (degenerative disc disease), lumbar: (3) Tobacco use disorder: (4) Post-traumatic stress disorder, chronic: (5) Borderline personality disorder: Plan This is a 57-year-old white female with a long history of mental health treatment and some past addiction treatment who presents with reports of recent manic episode after treatment with prednisone in the hospital and recent akathisia/dyskinesia/movement disorder or musculoskeletal complaints after a trial of Seroquel which seemed to improve with addition of Cogentin with reports of suicidal thoughts as things got really bad. 1. Continue current medication.? Speak to outside provider and consider another mood stabilizer i.e. Invega or Geodon. Started Invega 3 mg p.o. daily and increased to 6 mg p.o. daily. Increase Cogentin to 2 mg p.o. twice daily 2. Encourage individual, group, and milieu therapy. 3. Continue q-15-minute checks for safety. 4. Recommend sober living treatment at the highest level of care to which the patient is willing to commit. Involuntary Hold Information 96 Hour Hold: 96 Hour Involuntary Admission: No Attestations NPU Medical Necessity Statement*: Inpatient hospitalization is medically necessary and the clinically appropriate intervention, at this time. We will monitor medications and make changes as indicated. Likely length of stay is 1-3 days. Coding Level of Care Code Acute Code for [facility] Fwd Diagnoses Essential hypertension I10 DDD (degenerative disc disease), lumbar M51.36 Tobacco use disorder F17.200 Post-traumatic stress disorder, chronic F43.12 Borderline personality disorder F60.3
[2023-04-18 14:00] VITALS: BP 118/79; PULSE 78; RESP 16; TEMP 36.8; O2SAT 99
--- NOTE | 2023-04-18 16:41 | PC.NURSE ---
Patient reporting anxiety 8/10. After laying down, patient returned, rating anxiety 7/10. Administered 50mg Vistaril to patient for anxiety. patient states that she is anxious about not having much money, worry about her dog and , etc.
--- NOTE | 2023-04-18 16:52 | PC.NURSE ---
Patient reports seeing red and green dots with her glasses both on and off.
[2023-04-18 19:36] VITALS: BP 114/77; PULSE 68; RESP 18; TEMP 36.9; O2SAT 100
[2023-04-18] MEDS: trazodone 150 mg Tablet PO (20:07)
[2023-04-18] MEDS: lidocaine 5% Patch 1 PATCH TOPICAL (20:08)
[2023-04-18] MEDS: duloxetine 60 mg Capsule 120 MG PO (20:08)
--- NOTE | 2023-04-18 20:54 | PC.NURSE ---
During assessment when pt was asked if she was hearing/seeing anthing, Pt stated I am hearing high pitched tones and I am seeing shadow cats, dogs and pigs run by and I am also seeing dots in front of my eyes.
[2023-04-19] MEDS: hyDROXYzine 25 mg Capsule 50 MG PO ×2 (04:34→11:17)
[2023-04-19] MEDS: haloperidol 5 mg Tablet PO (05:21)
[2023-04-19 06:00] VITALS: BP 103/62; PULSE 63; RESP 16; O2SAT 98
[2023-04-19] MEDS: paliperidone ER 6 mg Tablet PO (07:16)
[2023-04-19] MEDS: benztropine 1 mg Tablet 2 MG PO ×2 (07:17→17:36)
[2023-04-19] MEDS: topiramate 25 mg Tablet 50 MG PO ×2 (07:17→17:36)
[2023-04-19] MEDS: alfuzosin 10 mg ER Tablet PO (07:17)
[2023-04-19] MEDS: buPROPion XL (24 HR) 300 mg Tablet PO (07:19)
[2023-04-19] MEDS: nicotine 21 mg Patch 1 PATCH TRANSDERMA (08:33)
--- NOTE | 2023-04-19 10:03 | PC.NURSE ---
removed pt lidocaine patch from lower back.
--- NOTE | 2023-04-19 11:03 | P.NPUPN_ITS ---
Subjective NPU Subjective: Patient presented today reporting that she is feeling some continued shakiness. She was endorsing not having a good night. She continued to discuss somatic concerns and memory. She is reporting that she hopes to feel well enough to discharge tomorrow. She denied issues with the medications, but was focussed on medication for her brain fog. Mental Status Exam MSE Comments: This is an?underweight, diminutive, white female, in hospital scrubs, with limited grooming and eye contact. No abnormal movements, except for significant psychomotor retardation. Mostly cooperative with exam in mild distress. Speech was decreased rate and volume, with limited prosody. Mood described as may be a little better but need to have a better day; affect congruent. Thought process, organized. Thought content: patient denied any suicidal or homicidal ideation, there were no delusions reported or noted, patient denied any auditory or visual hallucinations. Attention, concentration, and memory appeared intact, but none were formally tested. Alert and oriented times three. Insight and judgment are limited. Impulse control is limited. Vitals/I&O/Wt Last Vital Signs Temp 98.4 F 04/18/23 19:36 Pulse 63 04/19/23 06:00 Resp 16 04/19/23 06:00 BP 103/62 04/19/23 06:00 Pulse Ox 98 04/19/23 06:00 O2 Del Method Room Air 04/19/23 06:00 Data NPU 04/14/23 10:56 04/14/23 10:56 A&P Assessment and plan (1) Essential hypertension: (2) DDD (degenerative disc disease), lumbar: (3) Tobacco use disorder: (4) Post-traumatic stress disorder, chronic: (5) Borderline personality disorder: Plan This is a 57-year-old white female with a long history of mental health treatment and some past addiction treatment who presents with reports of recent manic episode after treatment with prednisone in the hospital and recent akathisia/dyskinesia/movement disorder or musculoskeletal complaints after a trial of Seroquel which seemed to improve with addition of Cogentin with reports of suicidal thoughts as things got really bad. 1. Continue current medication.? Speak to outside provider and consider anothe r mood stabilizer i.e. Invega or Geodon. Started Invega 3 mg p.o. daily and increased to 6 mg p.o. daily. Increase Cogentin to 2 mg p.o. twice daily 2. Encourage individual, group, and milieu therapy. 3. Continue q-15-minute checks for safety. 4. Recommend sober living treatment at the highest level of care to which the patient is willing to commit. Involuntary Hold Information 96 Hour Hold: 96 Hour Involuntary Admission: No Attestations NPU Medical Necessity Statement*: Inpatient hospitalization is medically necessary and the clinically appropriate intervention, at this time. We will monitor medications and make changes as indicated. Likely length of stay is 1-3 days. Coding Level of Care Code Acute Code for g Fwd Diagnoses Essential hypertension I10 DDD (degenerative disc disease), lumbar M51.36 Tobacco use disorder F17.200 Post-traumatic stress disorder, chronic F43.12 Borderline personality disorder F60.3
--- NOTE | 2023-04-19 12:43 | DCPLANNER ---
IMM was printed and explained and give to pt and copy put in file.
[2023-04-19 14:00] VITALS: BP 112/80; PULSE 66; RESP 16; TEMP 36.9; O2SAT 96
[2023-04-19] MEDS: trazodone 150 mg Tablet PO (19:46)
[2023-04-19] MEDS: duloxetine 60 mg Capsule 120 MG PO (19:46)
[2023-04-19] MEDS: lidocaine 5% Patch 1 PATCH TOPICAL (19:47)
[2023-04-19] MEDS: ondansetron 4 MG Tablet PO (20:22)
[2023-04-19 20:39] VITALS: BP 125/77; PULSE 60; RESP 16; TEMP 36.6; O2SAT 96
[2023-04-19] MEDS: cetylpyridinium Lozenge 1 EACH MUCOUS MEM (22:53)
[2023-04-20] MEDS: hyDROXYzine 25 mg Capsule 50 MG PO ×2 (03:12→13:13)
[2023-04-20] MEDS: cetylpyridinium Lozenge 1 EACH MUCOUS MEM (05:00)
[2023-04-20 06:00] VITALS: BP 111/73; PULSE 60; RESP 17; O2SAT 96
[2023-04-20] MEDS: benztropine 1 mg Tablet 2 MG PO (09:08)
[2023-04-20] MEDS: buPROPion XL (24 HR) 300 mg Tablet PO (09:08)
[2023-04-20] MEDS: topiramate 25 mg Tablet 50 MG PO (09:08)
[2023-04-20] MEDS: paliperidone ER 6 mg Tablet PO (09:08)
[2023-04-20] MEDS: alfuzosin 10 mg ER Tablet PO (09:09)
[2023-04-20] MEDS: diphenhydrAMINE 50 mg Capsule PO (09:09)
[2023-04-20] MEDS: nicotine 21 mg Patch 1 PATCH TRANSDERMA (09:13)
[2023-04-20] MEDS: ondansetron 4 MG Tablet PO (11:02)
[2023-04-20 14:00] VITALS: BP 106/73; PULSE 79; RESP 16; TEMP 36.9; O2SAT 100
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
[2023-04-20 15:36] VITALS: BP 106/73; PULSE 79; RESP 16; TEMP 36.9; O2SAT 100
--- NOTE | 2023-04-20 15:49 | PC.NURSE ---
written discharge instructions discussed with patient and her both stated understanding and compliance. pt to leave with medication from main campus pharmacy delivered to unit. pt leaving in pov.
== END 2023-04-20 16:23 | disposition home or self-care (01) | DRG 885 ==
LOC: ER 10:57 → NP 14:59
PROVIDERS: Admitting Provider Psychiatry & Neurology Psychiatry; Emergency Provider Family Medicine; PCP Nurse Practitioner; Visit Provider Psychiatry & Neurology Psychiatry
DX: F31.9 Bipolar disorder, unspecified (principal); R45.851 Suicidal ideations; F17.210 Nicotine dependence, cigarettes, uncomplicated; F10.90 Alcohol use, unspecified, uncomplicated; F12.90 Cannabis use, unspecified, uncomplicated; F43.12 Post-traumatic stress disorder, chronic; F60.3 Borderline personality disorder; I10 Essential (primary) hypertension; M51.36 Other intervertebral disc degeneration, lumbar region
CPT/HCPCS: 80053; 80306; 80307; 81001; 85025; 93005; 97150; 97165; 99238; 99285; Q0162; Q0163

== ENCOUNTER → 2023-05-26 08:59 | Outpatient (BNVA) | payer MEDICARE, SELFPAY | PROVIDERS: PCP Nurse Practitioner; Visit Provider Nurse Practitioner | DX: Z79.899 Other long term (current) drug therapy (principal); T43.501A Poisoning by unspecified antipsychotics and neuroleptics, accidental (unintentional), initial encounter | CPT/HCPCS: 80061; 83036 ==

== ENCOUNTER → 2023-06-02 11:27 | Outpatient (BNVA) | payer MEDICARE, OTHER, SELFPAY | PROVIDERS: PCP Nurse Practitioner; Visit Provider Nurse Practitioner Family | DX: L81.4 Other melanin hyperpigmentation (principal); D22.5 Melanocytic nevi of trunk; L85.3 Xerosis cutis; L57.8 Other skin changes due to chronic exposure to nonionizing radiation; L57.0 Actinic keratosis; Z85.828 Personal history of other malignant neoplasm of skin | CPT/HCPCS: 17000; 17003; 99213 ==

== ENCOUNTER → 2023-07-11 11:37 | Outpatient (BNVA) | payer MEDICARE, SELFPAY | PROVIDERS: PCP Nurse Practitioner; Visit Provider Nurse Practitioner | DX: E53.8 Deficiency of other specified B group vitamins (principal) | CPT/HCPCS: 82607 ==

== ENCOUNTER → 2023-12-01 09:56 | Outpatient (BNVA) | payer MEDICARE, SELFPAY | PROVIDERS: PCP Nurse Practitioner; Visit Provider Nurse Practitioner Family | DX: D22.5 Melanocytic nevi of trunk (principal); L85.3 Xerosis cutis; L57.8 Other skin changes due to chronic exposure to nonionizing radiation; L57.0 Actinic keratosis; L72.0 Epidermal cyst; Z85.828 Personal history of other malignant neoplasm of skin | CPT/HCPCS: 17000; 99213 ==

== ENCOUNTER 2023-12-07 13:48 | Inpatient (IN) | payer MEDICARE, SELFPAY ==
[2023-12-07 13:51] VITALS: BP 143/76; PULSE 79; RESP 16; TEMP 37.3; O2SAT 97
[2023-12-07 14:18] LABS: Basophils # 0.1 10^3/uL (0.0-0.1); Basophils % 0.7 %; Eosinophils # 0.2 10^3/uL (0.0-0.8); Eosinophils % 1.4 %; Lymphocytes % 28.2 %; Mean Corpuscular HGB Conc 32.1 g/dL (30-55); Mean Corpuscular Hemoglobin 31.3 pg (27-33); Mean Corpuscular Volume 97.2 fl (85-98); Mean Platelet Volume 10.5 fL (7.4-10.4); Monocytes # 0.7 10^3/uL (0.2-0.9); Monocytes % 6.1 %; Neutrophils # 6.79 10^3/uL (1.8-7.7); Neutrophils % 63.1 %; Nucleated Red Blood Cells % 0 %; Platelet Count 299 10^3/cmm (157-399); Red Blood Count 4.32 10^6/uL (3.85-5.65); Red Cell Distribution Width 13.2 % (12.1-15.1); White Blood Count 10.74 10^3/uL (3.29-11.43)
[2023-12-07 14:22] LABS: Add Urine Microscopic? YES; Amphetamines Screen Urine Negative (Negative); Barbiturates Screen Urine Negative (Negative); Benzodiazepines Screen Urine Negative (Negative); Bilirubin Urine Neg (Negative); Blood Urine Trace (Negative); Cocaine Screen Urine Negative (Negative); Glucose Urine UA Norm (Normal); Ketones Urine Negative (Negative); Leukocyte Esterase Urine Negative (Negative); Nitrate Urine Negative (Negative); Opiate Screen Urine Negative (Negative); PCP Screen Urine Negative (Negative); Protein Urine Neg (Negative); Specific Gravity, Urine 1.005 (1.005-1.030); THC Screen Urine Negative (Negative); Urine Appearance Clear (CLEAR); Urine Color Yellow (Yellow); Urobilinogen Urine Norm (Negative); pH Urine 7 (5-7)
--- NOTE | 2023-12-07 14:26 | ED.C_ITS ---
HPI - Psych 2 General: Chief Complaint: Psychiatric Symptoms Stated Complaint: SI Time Seen by Provider: 12/07/23 13:56 History of Present Illness: Patient presents here from [facility] [place] for suicidal ideation and auditory visual hallucinations. Patient says she has been going downhill over the last little while. Patient admits to drinking a lot as a coping mechanism. Patient states she has no plan on how she is going to commit suicide but she can get those thoughts out of her mind. Patient is on bupropion, buspirone, duloxetine, topiramate, trazodone. Patient's has diagnosis of overdose of antipsychotic, borderline personality disorder, PTSD, Patient's last admit to the [facility] was on 04/14/2023 and she was discharged on 04/20/[address] Reyes [facility] ED 2 PFS: Medical History On combination antipsychotic drug therapy Overdose of antipsychotic Tobacco use disorder Urolithiasis Migraine aura, persistent GERD (gastroesophageal reflux disease) Psychiatric care History of nonmelanoma skin cancer Neurogenic bladder Renal calculi Voiding dysfunction Family history of colon cancer Borderline personality disorder Post-traumatic stress disorder, chronic Surgical History Status post laparoscopic cholecystectomy (02/11/22) History of esophagogastroduodenoscopy 2 years ago History of colonoscopy 5 years ago History of tonsillectomy History of lumbar surgery History of basal cell cancer History of hysterectomy History of Family History Mother , at age 72 Parkinson disease Cancer colon Father , at age 60 Cancer brain and liver Social History Smoking and tobacco/nicotine status: current every day tobacco/nicotine user cigarettes Years cigarettes smoked: 20 Second hand smoke exposure: Yes Alcohol intake: never Substance/Drug Use: never Caregiver/support person: No Lives independently: Yes Household members: spouse Housing: House Marital status: Number of children: 2 service: No Current occupational status: disabled Current occupational exposures/hazards: No Do you think of yourself as: Straight/Heterosexual Current gender identity: Female Physical Exam 2 Const: COMMON NORMALS: no acute distress, average body habitus, patient oriented x3, no limitations, healthy appearing, alert and well nourished HENMT: COMMON NORMALS: normocephalic, atraumatic, hearing grossly normal bilaterally, external ears normal, Normal external nose present, moist oral mucous membranes and oropharynx normal HEAD & SCALP: normocephalic and atraumatic NOSE: Normal external nose present EXTERNAL EAR: Yes external ears normal Neck/C-Spine: COMMON NORMALS: no JVD Chest: COMMONS NORMALS: normal inspection of the chest and normal palpation of entire chest wall Resp: COMMON NORMALS: normal respiratory effort, No retractions, No use of accessory muscles and clear to auscultation bilaterally AUSCULTATION: clear to auscultation bilaterally Cardio: COMMON NORMALS: no JVD, regular rate, regular rhythm, S1 normal heart sound present, S2 normal heart sound present, No gallops present (Cardio), No clicks present (Cardio), No murmurs present (Cardio) and No rub (Cardio) R ATE: regular rate RHYTHM: regular rhythm HEART SOUNDS: S1 normal heart sound present and S2 normal heart sound present GI: COMMON NORMALS: Normal to inspection, nondistended, normoactive bowel sounds present, Soft to palpation, non-tender, No hepatosplenomegaly present and no masses PALPATION: Yes Soft to palpation and Yes No hepatosplenomegaly present Neuro: COMMON NORMALS: patient oriented x3 SENSORIUM/ORIENTATION: Yes alert Course 2 Vital Signs: Vital signs: Vital Signs Temperature 99.1 F 12/07/23 13:51 Pulse Rate 79 12/07/23 13:51 Respiratory Rate 16 12/07/23 13:51 Blood Pressure 143/76 12/07/23 13:51 Pulse Oximetry 97 12/07/23 13:51 Oxygen Delivery Me thod Room Air 12/07/23 13:51 MDM - Psych Medical Decision Making Patient be worked up in normal psychiatric fashion for medical clearance. Once medically cleared Dr. Reyes to be consulted and anticipate admission to MPU. Dr. Reyes was consulted and agreed to place patient in [facility]. Differential Diagnosis Likely suicidal ideation and depression Medical Records I reviewed the patient's medical records. Lab Data I reviewed the patient's lab results. 12/07/23 14:10 12/07/23 14:10 Laboratory Results WBC 10.74 10^3/uL (3.29-11.43) 12/07/23 14:10 RBC 4.32 10^6/uL (3.85-5.65) 12/07/23 14:10 Hgb 13.50 g/dL (11.27-16.99) 12/07/23 14:10 Hct 42.0 % (36-47) 12/07/23 14:10 MCV 97.2 fl (85-98) 12/07/23 14:10 MCH 31.3 pg (27-33) 12/07/23 14:10 MCHC 32.1 g/dL (30-55) 12/07/23 14:10 RDW 13.2 % (12.1-15.1) 12/07/23 14:10 Plt Count 299 10^3/cmm (157-399) 12/07/23 14:10 MPV 10.5 fL (7.4-10.4) H 12/07/23 14:10 Neut % (Auto) 63.1 % 12/07/23 14:10 Lymph % (Auto) 28.2 % 12/07/23 14:10 [place] % (Auto) 6.1 % 12/07/23 14:10 Eos % (Auto) 1.4 % 12/07/23 14:10 Baso % (Auto) 0.7 % 12/07/23 14:10 Neut # (Auto) 6.79 10^3/uL (1.8-7.7) 12/07/23 14:10 Lymph # (Auto) 3.0 10^3/uL (0.8-4.8) 12/07/23 14:10 [place] # (Auto) 0.7 10^3/uL (0.2-0.9) 12/07/23 14:10 Eos # (Auto) 0.2 10^3/uL (0.0-0.8) 12/07/23 14:10 Baso # (Auto) 0.1 10^3/uL (0.0-0.1) 12/07/23 14:10 Nucleated RBC % (auto) 0 % 12/07/23 14:10 Nucleated RBCs # 0.0 /100WBC 12/07/23 14:10 Sodium 138 mmol/L (136-145) 12/07/23 14:10 Potassium 3.7 mmol/L (3.5-5.1) 12/07/23 14:10 Chloride 101 mmol/L (98-107) 12/07/23 14:10 Carbon Dioxide 25 mmol/L (22-29) 12/07/23 14:10 Anion Gap 15.7 (5-19) 12/07/23 14:10 BUN 9 mg/dL (8-23) 12/07/23 14:10 Creatinine 0.9 mg/dL (0.5-0.9) 12/07/23 14:10 GFR Calculation 63.9 mL/min (90-130) L 12/07/23 14:10 Glucose 108 mg/dL (65-115) 12/07/23 14:10 Calculated Osmolality 285 mOsm/kg (285-295) 12/07/23 14:10 Calcium 8.7 mg/dL (8.5-10.5) 12/07/23 14:10 Total Bilirubin 0.3 mg/dL (0.15-1.2) 12/07/23 14:10 AST 26 U/L (0-32) 12/07/23 14:10 ALT 29 U/L (0-33) 12/07/23 14:10 Alkaline Phosphatase 104 U/L (35-105) 12/07/23 14:10 Total Protein 7.1 g/dL (6.6-8.7) 12/07/23 14:10 Albumin 4.5 g/dL (3.5-5.2) 12/07/23 14:10 Globulin 2.6 g/dL (1.3-4.6) 12/07/23 14:10 Urine Color Yellow (Yellow) 12/07/23 14:00 Urine Appearance Clear (CLEAR) 12/07/23 14:00 Urine pH 7 (5-7) 12/07/23 14:00 Ur Specific [place] 1.005 (1.005-1.030) 12/07/23 14:00 Urine Protein Neg (Negative) 12/07/23 14:00 Urine Glucose (UA) Norm (Normal) 12/07/23 14:00 Urine Ketones Negative (Negative) 12/07/23 14:00 Urine Blood Trace (Negative) H 12/07/23 14:00 Urine Nitrate Negative (Negative) 12/07/23 14:00 Urine Bilirubin Neg (Negative) 12/07/23 14:00 Urine Urobilinogen Norm mg/dL (Negative) 12/07/23 14:00 Ur Leukocyte Esterase Negative (Negative) 12/07/23 14:00 Urine RBC 0-4 /hpf (0-2) H 12/07/23 14:00 Urine WBC 0-4 /hpf (0-5) H 12/07/23 14:00 Ur Squamous Epith Cells 0-4 /hpf (0-5) H 12/07/23 14:00 Amorphous Sediment Not Reportable 12/07/23 14:00 Urine Bacteria Trace /hpf (NONE) 12/07/23 14:00 Salicylates < 0.3 mg/dL (3-10) L 12/07/23 14:10 Urine Opiates Screen Negative ng/mL (Negative) 12/07/23 14:00 Acetaminophen < 5.0 ug/mL (10-30) L 12/07/23 14:10 Ur Barbiturates Screen Negative ng/mL (Negative) 12/07/23 14:00 Ur Phencyclidine Scrn Negative ng/mL (Negative) 12/07/23 14:00 Ur Amphetamines Screen Negative ng/mL (Negative) 12/07/23 14:00 U Benzodiazepines Scrn Negative ng/mL (Negative) 12/07/23 14:00 Urine Cocaine Screen Negative ng/mL (Negative) 12/07/23 14:00 U Marijuana (THC) Screen Negative ng/mL (Negative) 12/07/23 14:00 Ethyl Alcohol < 10 mg/dL (0-10) 12/07/23 14:10 All radiology interpretation(s) finalized by discharge Discharge Plan Discharge Patient Disposition: Admitted As Inpatient Clinical Impression: Acute psychosis, Depression with suicidal ideation Condition: Stable Coding Level of Care Code ED Etl Program[employer] for [employer]
[2023-12-07 14:35] LABS: Add Urine Culture? No; Bacteria Urine TRACE /hpf; RBC Urine 0-4 /hpf (0-2); Squamous Epithelial Cell Urine 0-4 /hpf (0-5); WBC Urine 0-4 /hpf (0-5)
[2023-12-07 14:46] LABS: Alanine Aminotransferase 29 U/L (0-33); Albumin Level 4.5 g/dL (3.5-5.2); Alkaline Phosphatase 104 U/L (35-105); Anion Gap 15.7 (5-19); Aspartate Amino Transferase 26 U/L (0-32); Blood Urea Nitrogen 9 mg/dL (8-23); Calcium 8.7 mg/dL (8.5-10.5); Carbon Dioxide 25 mmol/L (22-29); Chloride 101 mmol/L (98-107); Globulin 2.6 g/dL (1.3-4.6); Glomerular Filtration Rate 63.9 mL/min (90-130); Glucose 108 mg/dL (65-115); Osmolality Calculated 285 mOsm/kg (285-295); Potassium 3.7 mmol/L (3.5-5.1); Sodium 138 mmol/L (136-145); Total Bilirubin 0.3 mg/dL (0.15-1.2); Total Protein 7.1 g/dL (6.6-8.7)
[2023-12-07 14:48] LABS: Acetaminophen < 5.0 ug/mL (10-30); Alcohol Level < 10 mg/dL (0-10); Salicylate < 0.3 mg/dL (3-10)
[2023-12-07] MEDS: naproxen 500 mg Tablet PO (16:18)
[2023-12-07 17:30] VITALS: BP 148/87; PULSE 72; O2SAT 95
[2023-12-07 17:58] VITALS: BP 134/86; PULSE 76; RESP 15; TEMP 36.9; O2SAT 97
[2023-12-07] MEDS: blistex lip oint 7 gm Tube 1 APPLIC TOPICAL (18:44)
[2023-12-07] MEDS: nicotine 2 mg Gum BUCCAL (18:44)
--- NOTE | 2023-12-07 18:51 | PC.NURSE ---
Patient arrived to the ED via wheelchair at 1754. Patient is here today for thoughts of no longer wanting to be alive; patient denies any plan. When asked about cause for this feeling, patient stated that her son and his family are going through some bad stuff in [place] and that this has got her feeling hopeless. Patient endorses intermittent auditory and visual hallucinations. Patient states that she is not told to harm herself or others. Patient rates anxiety 8/10 and depression 10/10. Patient's tox screen was negative. Patient has back pain and left shoulder pain from a fall she sustained on Tuesday. Patient fell because she was intoxicated.
[2023-12-07 20:31] VITALS: BP 119/73; PULSE 83; RESP 17; TEMP 37.1; O2SAT 94
[2023-12-07] MEDS: trazodone 150 mg Tablet 300 MG PO (20:33)
[2023-12-07] MEDS: haloperidol 5 mg Tablet PO (20:33)
[2023-12-07] MEDS: BuSPIRONE 10 mg Tablet PO (20:33)
[2023-12-08 06:00] VITALS: BP 147/85; PULSE 58; RESP 16; O2SAT 98
[2023-12-08] MEDS: BuSPIRONE 10 mg Tablet PO ×2 (08:47→14:18)
[2023-12-08] MEDS: topiramate 25 mg Tablet 50 MG PO ×2 (08:47→17:55)
[2023-12-08] MEDS: duloxetine 60 mg Capsule PO ×2 (08:47→17:55)
[2023-12-08] MEDS: buPROPion XL (24 HR) 300 mg Tablet PO (08:47)
[2023-12-08] MEDS: nicotine 21 mg Patch 1 PATCH TRANSDERMA (08:47)
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
[2023-12-08] MEDS: haloperidol 5 mg Tablet PO ×3 (10:54→20:20)
[2023-12-08 14:00] VITALS: BP 138/85; PULSE 86; RESP 18; TEMP 37; O2SAT 96
[2023-12-08] MEDS: BuSPIRONE 10 mg Tablet 15 MG PO (20:20)
[2023-12-08] MEDS: trazodone 150 mg Tablet 300 MG PO (20:21)
[2023-12-08 20:38] VITALS: BP 148/89; PULSE 78; RESP 18; TEMP 36.6; O2SAT 97
[2023-12-09 06:00] VITALS: BP 135/87; PULSE 73; RESP 16; TEMP 36.9; O2SAT 95
[2023-12-09] MEDS: topiramate 25 mg Tablet 50 MG PO ×2 (08:08→17:58)
[2023-12-09] MEDS: duloxetine 60 mg Capsule PO ×2 (08:08→17:57)
[2023-12-09] MEDS: buPROPion XL (24 HR) 300 mg Tablet PO (08:09)
[2023-12-09] MEDS: BuSPIRONE 10 mg Tablet 15 MG PO ×3 (08:09→20:09)
[2023-12-09] MEDS: nicotine 21 mg Patch 1 PATCH TRANSDERMA (08:41)
--- NOTE | 2023-12-09 09:42 | P.NPUPN_ITS ---
Subjective NPU 2 Subjective: Patient presented today reporting that she is still feeling really down. We discussed the risks, benefits and alternatives of starting Abilify 5 mg p.o. daily and she understood and agreed to proceed as is documented in this note. She reports that she has been on Abilify in the past and that was helpful but she feels that at some point it stopped helping but she was unclear as to if they titrated the dose to affect during that time. She denies any side effects to the medications. Mental Status Exam 2 MSE Comments: This is an?underweight, diminutive, white female, in hospital scrubs, with limited grooming and eye contact. No abnormal movements, except for significant psychomotor retardation. Mostly cooperative with exam in mild distress. Speech was decreased rate and volume, with limited prosody. Mood described as depressed; affect congruent. Thought process, organized. Thought content: patient denied any suicidal or homicidal ideation, there was paranoia reported and some guardedness noted, patient endorsed auditory but denied visual hallucinations. Attention, concentration, and memory appeared intact, but none were formally tested. She is alert and oriented times three. Insight and judgment are limited. Impulse control is limited. Vitals/I&O/Wt Last Vital Signs Temp 98.4 F 12/09/23 06:00 Pulse 73 12/09/23 06:00 Resp 16 12/09/23 06:00 BP 135/87 12/09/23 06:00 Pulse Ox 95 12/09/23 06:00 O2 Del Method Room Air 12/09/23 06:00 Weight last 48 hrs Weight 56.699 kg Data NPU 12/07/23 14:10 12/07/23 14:10 A&P Assessment and plan (1) Essential hypertension: (2) DDD (degenerative disc disease), lumbar: (3) Tobacco use disorder: (4) Post-traumatic stress disorder, chronic: (5) Borderline personality disorder: Plan This is a 58-year-old white female with a long history of mental health treatment and some past addiction treatment who presents with reports of recent psychosis and suicidal thoughts and possible increased alcohol consumption against the backdrop of significant family discord involving her son and granddaughter. 1. Continue current medication. We will increased BuSpar to 15 mg p.o. 3 times daily and will consider increasing Wellbutrin XL or Cymbalta. Start Abilify 5 mg p.o. daily. 2. Encourage individual, group, and milieu therapy. 3. Continue q-15-minute checks for safety. 4. Recommend sober living treatment at the highest level of care to which the patient is willing to commit. Involuntary Hold Information 2 96 Hour Hold: 96 Hour Involuntary Admission: No Attestations NPU 2 Medical Necessity Statement*: Inpatient hospitalization is medically necessary and the clinically appropriate intervention, at this time. We will monitor medications and make changes as indicated. Likely length of stay is 3-5 days. Coding Level of Care Code Acute Code for g Fwd Diagnoses Essential hypertension I10 DDD (degenerative disc disease), lumbar M51.36 Tobacco use disorder F17.200 Post-traumatic stress disorder, chronic F43.12 Borderline personality disorder F60.3
[2023-12-09] MEDS: ARIPiprazole 10 mg Tablet 5 MG PO (11:47)
[2023-12-09 14:00] VITALS: BP 148/89; PULSE 67; RESP 16; TEMP 37.1; O2SAT 97
[2023-12-09] MEDS: ibuprofen 600 mg Tablet PO (16:32)
[2023-12-09] MEDS: hyDROXYzine 25 mg Capsule 50 MG PO (16:42)
[2023-12-09] MEDS: trazodone 150 mg Tablet 300 MG PO (20:09)
[2023-12-09 20:35] VITALS: BP 131/74; PULSE 64; RESP 17; TEMP 36.9; O2SAT 94
[2023-12-10 06:00] VITALS: BP 143/85; PULSE 65; RESP 15; TEMP 36.9; O2SAT 97
[2023-12-10] MEDS: buPROPion XL (24 HR) 300 mg Tablet PO (08:17)
[2023-12-10] MEDS: BuSPIRONE 10 mg Tablet 15 MG PO ×3 (08:17→20:24)
[2023-12-10] MEDS: duloxetine 60 mg Capsule PO ×2 (08:18→17:47)
[2023-12-10] MEDS: ARIPiprazole 10 mg Tablet 5 MG PO (08:18)
[2023-12-10] MEDS: nicotine 21 mg Patch 1 PATCH TRANSDERMA (08:18)
[2023-12-10] MEDS: topiramate 25 mg Tablet 50 MG PO ×2 (08:18→17:47)
--- NOTE | 2023-12-10 11:27 | P.NPUPN_ITS ---
Subjective NPU 2 Subjective: Patient presented today reporting that things are going okay. She continues to endorse depression. We discussed the risk benefits and alternatives of increasing the Wellbutrin XL as well as continuing to titrate the Abilify and she understood and agreed to proceed as is documented in this note. She then was inquiring about how long it was anticipated that she would be here. She denied any side effects of the medication. Mental Status Exam 2 MSE Comments: This is an?underweight, diminutive, white female, in hospital scrubs, with limited grooming and eye contact. No abnormal movements, except for significant psychomotor retardation. Mostly cooperative with exam in mild distress. Speech was decreased rate and volume, with limited prosody. Mood described as depressed; affect congruent. Thought process, organized. Thought content: patient denied any suicidal or homicidal ideation, there was paranoia reported and some guardedness noted, patient endorsed auditory but denied visual hallucinations. Attention, concentration, and memory appeared intact, but none were formally tested. She is alert and oriented times three. Insight and judgment are limited. Impulse control is limited. Vitals/I&O/Wt Last Vital Signs Temp 98.4 F 12/10/23 06:00 Pulse 65 12/10/23 06:00 Resp 15 12/10/23 06:00 BP 143/85 12/10/23 06:00 Pulse Ox 97 12/10/23 06:00 O2 Del Method Room Air 12/10/23 06:00 Data NPU 12/07/23 14:10 12/07/23 14:10 A&P Assessment and plan (1) Essential hypertension: (2) DDD (degenerative disc disease), lumbar: (3) Tobacco use disorder: (4) Post-traumatic stress disorder, chronic: (5) Borderline personality disorder: Plan This is a 58-year-old white female with a long history of mental health treatment and some past addiction treatment who presents with reports of recent psychosis and suicidal thoughts and possible increased alcohol consumption against the backdrop of significant family discord involving her son and granddaughter. 1. Continue current medication. We increased BuSpar to 15 mg p.o. 3 times daily. Increase Wellbutrin XL to 450 mg p.o. every morning. Started Abilify 5 mg p.o. daily. Increase to 10 mg. 2. Encourage individual, group, and milieu therapy. 3. Continue q-15-minute checks for safety. 4. Recommend sober living treatment at the highest level of care to which the patient is willing to commit. Involuntary Hold Information 2 96 Hour Hold: 96 Hour Involuntary Admission: No Attestations NPU 2 Medical Necessity Statement*: Inpatient hospitalization is medically necessary and the clinically appropriate intervention, at this time. We will monitor medications and make changes as indicated. Likely length of stay is 3-5 days. Coding Level of Care Code Acute Code for [facility] Fwd Diagnoses Essential hypertension I10 DDD (degenerative disc disease), lumbar M51.36 Tobacco use disorder F17.200 Post-traumatic stress disorder, chronic F43.12 Borderline personality disorder F60.3
[2023-12-10] MEDS: hyDROXYzine 25 mg Capsule 50 MG PO (12:46)
[2023-12-10 14:00] VITALS: BP 159/84; PULSE 67; RESP 16; TEMP 36.6; O2SAT 97
[2023-12-10] MEDS: ibuprofen 600 mg Tablet PO (14:33)
--- NOTE | 2023-12-10 15:20 | PC.NURSE ---
PT RECEIVED PRN 600 MG IBUPROFEN FOR HEADACHE WHICH SHE RATED A 8/10 ON A 0-10 SCALE WHERE 0 IS NO PAIN AT ALL AND 10 IS THE WORST PAIN POSSIBLE. AFTER REASSESSMENT. PT ENDORSES PAIN RELIEF WITH NEW PAIN RATING AT A 5/10 ON A 0-10 SCALE WHERE 0 IN NO PAIN AT ALL AND 10 IS THE WORST PAIN POSSIBLE. PT ENDORSE PAIN MEDICATION HAS BEEN EFFECTIVE.
[2023-12-10] MEDS: trazodone 150 mg Tablet 300 MG PO (20:24)
[2023-12-10 20:48] VITALS: BP 138/77; PULSE 57; RESP 16; TEMP 36.9; O2SAT 98
[2023-12-11] MEDS: hyDROXYzine 25 mg Capsule 50 MG PO ×4 (04:44→23:20)
[2023-12-11 06:00] VITALS: BP 142/90; PULSE 67; RESP 17; TEMP 36.9; O2SAT 96
[2023-12-11] MEDS: nicotine 21 mg Patch 1 PATCH TRANSDERMA (06:53)
--- NOTE | 2023-12-11 07:36 | W.PM.NPUPNS ---
Subjective NPU Subjective: Patient presented today reporting that she is feeling a little better. She reports that the medication changes seem to be helping. She was focused on how long she will have to stay. We discussed Dr. Lomeli returning tomorrow and being able to make decision but that there is a reasonable chance for discharge in the next 48 hours. She denied any side effects to the medication. Mental Status Exam MSE Comments: This is an?underweight, diminutive, white female, in hospital scrubs, with limited grooming and eye contact. No abnormal movements, except for significant psychomotor retardation. Mostly cooperative with exam in mild distress. Speech was decreased rate and volume, with limited prosody. Mood described as a little better; affect congruent. Thought process, organized. Thought content: patient denied any suicidal or homicidal ideation, there was paranoia reported and some guardedness noted, patient endorsed auditory but denied visual hallucinations. Attention, concentration, and memory appeared intact, but none were formally tested. She is alert and oriented times three. Insight and judgment are limited. Impulse control is limited. Vitals/I&O/Wt Last Vital Signs Temp 98.4 F 12/11/23 06:00 Pulse 67 12/11/23 06:00 Resp 17 12/11/23 06:00 BP 142/90 12/11/23 06:00 Pulse Ox 96 12/11/23 06:00 O2 Del Method Room Air 12/10/23 20:48 Weight last 48 hrs Weight 58.967 kg Data NPU 12/07/23 14:10 12/07/23 14:10 A&P Assessment and plan (1) Essential hypertension: (2) DDD (degenerative disc disease), lumbar: (3) Tobacco use disorder: (4) Post-traumatic stress disorder, chronic: (5) Borderline personality disorder: Plan This is a 58-year-old white female with a long history of mental health treatment and some past addiction treatment who presents with reports of recent psychosis and suicidal thoughts and possible increased alcohol consumption against the backdrop of significant family discord involving her son and granddaughter. 1. Continue current medication. We increased BuSpar to 15 mg p.o. 3 times daily. Increased Wellbutrin XL to 450 mg p.o. every morning. Started Abilify 5 mg p.o. daily. Increased to 10 mg. 2. Encourage individual, group, and milieu therapy. 3. Continue q-15-minute checks for safety. 4. Recommend sober living treatment at the highest level of care to which the patient is willing to commit. Involuntary Hold Information 96 Hour Hold: 96 Hour Involuntary Admission: No Attestations NPU Medical Necessity Statement*: Inpatient hospitalization is medically necessary and the clinically appropriate intervention, at this time. We will monitor medications and make changes as indicated. Likely length of stay is 1-4 days. Coding Level of Care Code Acute Code for [facility] Fwd Diagnoses Essential hypertension I10 DDD (degenerative disc disease), lumbar M51.36 Tobacco use disorder F17.200 Post-traumatic stress disorder, chronic F43.12 Borderline personality disorder F60.3
[2023-12-11] MEDS: ARIPiprazole 10 mg Tablet PO (08:34)
[2023-12-11] MEDS: buPROPion XL (24 HR) 300 mg Tablet 450 MG PO (08:35)
[2023-12-11] MEDS: topiramate 25 mg Tablet 50 MG PO ×2 (08:35→17:53)
[2023-12-11] MEDS: duloxetine 60 mg Capsule PO ×2 (08:35→17:53)
[2023-12-11] MEDS: BuSPIRONE 10 mg Tablet 15 MG PO ×3 (08:37→20:10)
[2023-12-11 13:20] VITALS: BP 117/72; PULSE 70; RESP 15; TEMP 37; O2SAT 96
[2023-12-11] MEDS: ibuprofen 600 mg Tablet PO (13:58)
[2023-12-11 19:41] VITALS: BP 156/89; PULSE 82; RESP 18; TEMP 36.8; O2SAT 97
[2023-12-11] MEDS: trazodone 150 mg Tablet 300 MG PO (20:10)
[2023-12-11] MEDS: tizanidine 4 mg Tablet 2 MG PO (21:50)
--- NOTE | 2023-12-11 23:20 | PC.NURSE ---
PATIENT CAME TO DESK SEVERAL TIME SINCE BEDTIME, STATING SHE CAN NOT SLEEP. STATES MUSCLES TWITCHING . TIZANADINE 2MG GIVEN AND VISTARIL 50MG GIVEN.
[2023-12-12 06:00] VITALS: BP 127/83; PULSE 68; RESP 16; TEMP 36.6; O2SAT 97
[2023-12-12] MEDS: BuSPIRONE 10 mg Tablet 15 MG PO ×2 (08:16→15:04)
[2023-12-12] MEDS: nicotine 21 mg Patch 1 PATCH TRANSDERMA (08:16)
[2023-12-12] MEDS: ARIPiprazole 10 mg Tablet PO (08:16)
[2023-12-12] MEDS: topiramate 25 mg Tablet 50 MG PO ×2 (08:16→17:37)
[2023-12-12] MEDS: buPROPion XL (24 HR) 300 mg Tablet PO (08:16)
[2023-12-12] MEDS: duloxetine 60 mg Capsule PO (08:16)
[2023-12-12] MEDS: buPROPion XL (24 HR) 150 mg Tablet PO (08:16)
[2023-12-12] MEDS: cyanocobalamin 1,000 mcg/mL SDV 1000 MCG IM (09:27)
[2023-12-12] MEDS: hyDROXYzine 25 mg Capsule 50 MG PO ×2 (12:07→15:02)
[2023-12-12 14:00] VITALS: BP 170/104; PULSE 65; RESP 15; TEMP 36.5; O2SAT 100
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
[2023-12-12] MEDS: ondansetron 4 MG Tablet PO (16:03)
--- NOTE | 2023-12-12 16:19 | ECG_ITS ---
[facility] Test Date: 2023-12-12 Pat Name: [place] Department: Room: 126 Gender: Female [employer]: : [id number] Requested By: Mario Lomeli Order Number: [id number] Kaitlin MD: Melvin Cardona M.D. Measurements Intervals [place] Rate: 65 P: 38 CA: 135 QRS: 64 QRSD: 90 T: 57 QT: 410 QTc: 428 Interpretive Statements SINUS RHYTHM Compared to ECG 04/14/2023 15:52:06 Sinus bradycardia no longer present Electronically Signed On 12-12-2023 18:55:12 CDT by Melvin Cardona M.D. [email or web address]
[2023-12-12 16:37] VITALS: BP 180/106
[2023-12-12] MEDS: cloNIDine 0.1 mg Tablet 0.100000000000000006 MG PO (16:37)
[2023-12-12 17:20] VITALS: BP 159/92
[2023-12-12] MEDS: tizanidine 4 mg Tablet 2 MG PO (20:12)
[2023-12-12] MEDS: duloxetine 30 mg Capsule PO (20:12)
[2023-12-12] MEDS: trazodone 150 mg Tablet 300 MG PO (20:12)
[2023-12-12] MEDS: BuSPIRONE 10 mg Tablet PO (20:12)
[2023-12-12 20:24] VITALS: BP 166/88
[2023-12-12 20:57] VITALS: BP 136/83; PULSE 74; RESP 18; TEMP 36.4; O2SAT 99
[2023-12-13 06:00] VITALS: BP 125/87; PULSE 60; RESP 17; TEMP 36.8; O2SAT 99
[2023-12-13] MEDS: nicotine 21 mg Patch 1 PATCH TRANSDERMA (07:47)
[2023-12-13] MEDS: duloxetine 30 MG, duloxetine 60 MG 90 MG PO (07:48)
[2023-12-13] MEDS: buPROPion XL (24 HR) 150 mg Tablet PO (07:51)
[2023-12-13] MEDS: BuSPIRONE 10 mg Tablet PO ×2 (07:51→15:04)
[2023-12-13] MEDS: topiramate 25 mg Tablet 50 MG PO (07:51)
[2023-12-13] MEDS: ARIPiprazole 10 mg Tablet PO (07:51)
[2023-12-13] MEDS: buPROPion XL (24 HR) 300 mg Tablet PO (07:51)
[2023-12-13] MEDS: hyDROXYzine 25 mg Capsule 50 MG PO (10:04)
[2023-12-13] MEDS: ondansetron 4 MG Tablet PO (11:48)
--- NOTE | 2023-12-13 12:35 | DCPLANNER ---
IMM completed 12/13/2023 @ 8847. Pt was given a copy of her rights and had no questions about her rights.
[2023-12-13 14:00] VITALS: BP 133/89; PULSE 88; RESP 16; TEMP 36.6; O2SAT 97
--- NOTE | 2023-12-13 14:23 | P.NPUDS_ITS ---
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 Frederick Stark, [employer] [Primary Care Provider] - Discharge Diet: Usual diet Discharge Activity: Resume usual activity Patient Instructions: Bupropion (By mouth) (Zyban, Wellbutrin XL, Wellbutrin SR, Wellbutrin), Buspirone (By mouth), Aripiprazole (By mouth) (Abilify, Abilify Discmelt), Duloxetine (By mouth) (Dany Kam Drizalma Sprinkle), Depression (DC), PTSD (Post Traumatic Stress Disorder) (DC), Opioid Safety Discharge Attestations NPU Time Spent in Discharge Care*: less than 30 min Specific Discharge Activities: Specific discharge activities: educating patient Coding Level of Care Code Acute Code for [facility] Fwd Diagnoses Post-traumatic stress disorder, chronic F43.12 Borderline personality disorder F60.3 Essential hypertension I10 DDD (degenerative disc disease), lumbar M51.36 Tobacco use disorder F17.200 Depression, unspecified F32.A
[2023-12-13 14:39] VITALS: BP 125/87; PULSE 60; RESP 17; TEMP 36.8; O2SAT 99
[2023-12-13] MEDS: meclizine 25 mg tablet PO (16:35)
== END 2023-12-13 16:55 | disposition home or self-care (01) | DRG 882 ==
LOC: ER 15:51 → NP 16:52
PROVIDERS: Admitting Provider Psychiatry & Neurology Psychiatry; Emergency Provider Emergency Medicine; PCP Nurse Practitioner; Visit Provider Psychiatry & Neurology Psychiatry
DX: F43.12 Post-traumatic stress disorder, chronic (principal); R45.851 Suicidal ideations; F60.3 Borderline personality disorder; F32.A Depression, unspecified; Z62.810 Personal history of physical and sexual abuse in childhood; Z63.79 Other stressful life events affecting family and household; Z72.0 Tobacco use; M51.36 Other intervertebral disc degeneration, lumbar region
CPT/HCPCS: 36415; 80053; 80306; 80307; 81001; 85025; 93005; 96372; 97150; 97165; 99285; J3420; J8597; Q0162

== ENCOUNTER 2023-12-14 20:19 | Emergency (ER) | payer MEDICARE, SELFPAY ==
[2023-12-14 20:23] VITALS: BP 167/88; PULSE 93; RESP 16; TEMP 37.1; O2SAT 96
--- NOTE | 2023-12-14 20:45 | ED_ITS ---
HPI - Recheck/Abnormal Lab/Rx 2 General: Chief Complaint: Recheck/Abnormal Lab/Rx Stated Complaint: high bp Time Seen by Provider: 12/14/23 20:34 History of Present Illness: 58-year-old female presents emergency de partment with concerns that her blood pressure has been high. She states that she is taking it every hour and has noticed that it has been elevated. She states she did take blood pressure medicine in the past but her primary care provider discontinued that because her blood pressure became too low. She was recently seen here in the emergency department and admitted to the neuropsychiatric unit for acute psychosis and was discharged on 12/13/2023. She denies chest pain dizziness or lightheaded feeling. She denies shortness of breath. She states she does feel slightly nauseated and does appear to be very anxious and concerned about her elevated blood pressure into the 150s, she has presented me with a small piece of paper that she has written her blood pressures that she is taken every 45 minutes to 1 hour over the previous 2 days. It does appear that the average systolic blood pressure is in the 130s to 140 range. Review of Systems 2 General: Reports: 10 or more systems reviewed and unremarkable except in HPI and below Card: Denies: chest pain, palpitations, irregular heart rhythm or lightheadedness Resp: Denies: dyspnea, non-productive cough or wheezing GI: Reports: nausea; Denies: abdominal pain or vomiting Psych: Reports: anxiety PFSH ED 2 PFSH: Medical History On combination antipsychotic drug therapy Overdose of antipsychotic Tobacco use disorder Urolithiasis Migraine aura, persistent GERD (gastroesophageal reflux disease) Psychiatric care History of nonmelanoma skin cancer Neurogenic bladder Renal calculi Voiding dysfunction Family history of colon cancer Borderline personality disorder Post-traumatic stress disorder, chronic Surgical History Status post laparoscopic cholecystectomy (02/11/22) History of esophagogastroduodenoscopy 2 years ago History of colonoscopy 5 years ago History of tonsillectomy History of lumbar surgery History of basal cell cancer History of hysterectomy History of Family History Mother , at age 72 Parkinson disease Cancer colon Father , at age 60 Cancer brain and liver Social History Smoking and tobacco/nicotine status: current every day tobacco/nicotine user cigarettes Years cigarettes smoked: 20 Second hand smoke exposure: Yes Alcohol intake: never Substance/Drug Use: never Caregiver/support person: No Lives independently: Yes Household members: spouse Housing: House Marital status: Number of children: 2 service: No Current occupational status: disabled Current occupational exposures/hazards: No Do you think of yourself as: Straight/Heterosexual Current gender identity: Female Physical Exam 2 Narrative: EXAM NARRATIVE: Constitutional: the patient appears well nourished and of normal development. Vital signs as documented. No acute distress at present. Alert and oriented-to person, place, time and situation. Head, eyes, ears, nose, mouth, throat: Normocephalic, atraumatic. Pupils-equal, round, reactive to light. No scleral icterus. Normal-appearing external ears. Normal appearing nasal turbinates, no drainage. No obvious oral lesions, posterior oropharynx without erythema or exudates. Neck: Supple, trachea is midline, no lymphadenopathy, no jugular venous distension, thyromegaly, or carotid bruits. Carotid upstrokes are brisk bilaterally. Lungs: clear to auscultation to all lung kim. Symmetrical rise and fall of chest, no obvious signs of increased work of breathing at present. Cardiac: Regular rate and rhythm, positive S1, S2. No murmurs, rubs or gallops that I can appreciate Thorax: Nontender to palpation with distraction during the physical exam process. No crepitus or obvious abnormality noted. Abdomen: Soft, non-tender to palpation, normal active bowel sounds to all quadrants. No palpable masses, no organomegaly and abdominal bruits. Extremities: 2+ pulses in the upper extremities that are equal bilaterally, 2+ pulses in the lower extremities that are equal bilaterally. Non-edematous. Moves all extremities well, sensation to all extremities are noted. Skin: Warm, dry, intact. Psych: Anxious appearing, cooperative. Course 2 Vital Signs: Vital signs: Vital Signs Temperature 98.8 F 12/14/23 20:23 Pulse Rate 74 12/14/23 21:26 Respiratory Rate 19 H 12/14/23 21:26 Blood Pressure 118/74 12/14/23 21:26 Pulse Oximetry 95 12/14/23 21:26 Oxygen Delivery Me thod Room Air 12/14/23 21:26 MDM - Recheck/Abnormal Lab/Rx Medical Decision Making Physical exam completed and documented, I did obtain a CBC and CMP and EKG reevaluation the patient's blood pressure shows significant improvement. She did inquire about a pain underneath her left arm that is intermittent and stabbing and states that there is nothing specific that causes her pain. On examination there was no noted abnormality. Medical Records I reviewed the patient's medical records. Lab Data I reviewed the patient's lab results. 12/14/23 20:40 12/14/23 20:40 Radiology Impressions Chest X-Ray 12/14/23 21:40 IMPRESSION: No acute findings. Laboratory Results WBC 10.27 10^3/uL (3.29-11.43) 12/14/23 20:40 RBC 4.13 10^6/uL (3.85-5.65) 12/14/23 20:40 Hgb 13.20 g/dL (11.27-16.99) 12/14/23 20:40 Hct 39.5 % (36-47) 12/14/23 20:40 MCV 95.6 fl (85-98) 12/14/23 20:40 MCH 32.0 pg (27-33) 12/14/23 20:40 MCHC 33.4 g/dL (30-55) 12/14/23 20:40 RDW 12.9 % (12.1-15.1) 12/14/23 20:40 Plt Count 323 10^3/cmm (157-399) 12/14/23 20:40 MPV 9.5 fL (7.4-10.4) 12/14/23 20:40 Neut % (Auto) 63.0 % 12/14/23 20:40 Lymph % (Auto) 27.6 % 12/14/23 20:40 [place] % (Auto) 6.5 % 12/14/23 20:40 Eos % (Auto) 1.2 % 12/14/23 20:40 Baso % (Auto) 1.0 % 12/14/23 20:40 Neut # (Auto) 6.48 10^3/uL (1.8-7.7) 12/14/23 20:40 Lymph # (Auto) 2.8 10^3/uL (0.8-4.8) 12/14/23 20:40 [place] # (Auto) 0.7 10^3/uL (0.2-0.9) 12/14/23 20:40 Eos # (Auto) 0.1 10^3/uL (0.0-0.8) 12/14/23 20:40 Baso # (Auto) 0.1 10^3/uL (0.0-0.1) 12/14/23 20:40 Nucleated RBC % (auto) 0 % 12/14/23 20:40 Nucleated RBCs # 0.0 /100WBC 12/14/23 20:40 Sodium 138 mmol/L (136-145) 12/14/23 20:40 Potassium 4.0 mmol/L (3.5-5.1) 12/14/23 20:40 Chloride 101 mmol/L (98-107) 12/14/23 20:40 Carbon Dioxide 26 mmol/L (22-29) 12/14/23 20:40 Anion Gap 15.0 (5-19) 12/14/23 20:40 BUN 15 mg/dL (8-23) 12/14/23 20:40 Creatinine 1.1 mg/dL (0.5-0.9) H 12/14/23 20:40 GFR Calculation 50.7 mL/min (90-130) L 12/14/23 20:40 Glucose 91 mg/dL (65-115) 12/14/23 20:40 Calculated Osmolality 286 mOsm/kg (285-295) 12/14/23 20:40 Calcium 9.3 mg/dL (8.5-10.5) 12/14/23 20:40 Total Bilirubin 0.5 mg/dL (0.15-1.2) 12/14/23 20:40 AST 16 U/L (0-32) 12/14/23 20:40 ALT 16 U/L (0-33) 12/14/23 20:40 Alkaline Phosphatase 107 U/L (35-105) H 12/14/23 20:40 Total Protein 6.9 g/dL (6.6-8.7) 12/14/23 20:40 Albumin 4.8 g/dL (3.5-5.2) 12/14/23 20:40 Globulin 2.1 g/dL (1.3-4.6) 12/14/23 20:40 All radiology interpretation(s) finalized by discharge Discharge Plan Discharge Patient Disposition: Home Clinical Impression: Chest wall pain, Anxiety Condition: Stable Prescriptions: No Action topiramate [Topamax] 50 mg tablet 50 mg PO BID Qty: 60 2RF cyanocobalamin (vitamin B-12) 1,000 mcg/mL solution 1,000 mcg IM .monthly Qty: 1 5RF (DME) syringe with needle 3 mL 22 gauge x 1 syringe See Rx Instructions .ROUTE .MEDSUPPLY Qty: 1 5RF Rx Instructions: monthly for B12 injection Emgality Pen 120 mg/mL pen injector 120 mg SUBCUT Q7D buspirone 10 mg tablet 10 mg PO TID Qty: 90 1RF tizanidine 2 mg tablet 2 mg PO BID PRN (Reason: Muscle Spasm) Qty: 60 5RF trazodone 150 mg tablet 300 mg PO BEDTIME aripiprazole 10 mg Tablet 10 mg PO DAILY 30 Days Qty: 30 1RF duloxetine 30 mg Capsule,Delayed Release(Dr/Ec) 90 mg PO DAILY 30 Days Qty: 90 1RF bupropion HCl 150 mg Tablet Extended Release 24 Hr 150 mg PO DAILY 30 Days Qty: 30 1RF buspirone 10 mg Tablet 10 mg PO BID 30 Days Qty: 60 0RF Wellbutrin XL 300 mg tablet extended release 24 hr 300 mg PO QAM 30 Days Qty: 30 2RF Discharge Orders: Discharge ED (Routine); Ordered 12/14/23 Ordered By: Chadwick Stevenson Referrals: Frederick Stark, [employer] [Primary Care Provider] - Discharge Diet: Usual diet Discharge Activity: Resume usual activity Patient Instructions: Opioid Safety, Pain Management Activity Restrictions/Additional Instructions: Activity Restrictions/Additional Instructions: Thank you for choosing [facility] for your healthcare needs today. Please realize that you were seen in the Emergency Department and that we are providing you with an emergency medical screening exam and this may not be a complete and all inclusive of all the testing and or medical work-up that you may need to determine your ailment or severity of your illness. It is very important that you follow-up as instructed with your Primary care provider or Specialist for additional evaluation and to discuss your medical treatment plan. Is important to follow-up with your primary care provider as we discussed and keep your blood pressure log to present to them. 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
[2023-12-14 20:49] LABS: Basophils # 0.1 10^3/uL (0.0-0.1); Eosinophils # 0.1 10^3/uL (0.0-0.8); Eosinophils % 1.2 %; Hematocrit 39.5 % (36-47); Lymphocytes # 2.8 10^3/uL (0.8-4.8); Lymphocytes % 27.6 %; Mean Corpuscular HGB Conc 33.4 g/dL (30-55); Mean Corpuscular Volume 95.6 fl (85-98); Mean Platelet Volume 9.5 fL (7.4-10.4); Monocytes # 0.7 10^3/uL (0.2-0.9); Monocytes % 6.5 %; Neutrophils # 6.48 10^3/uL (1.8-7.7); Nucleated Red Blood Cells % 0 %; Platelet Count 323 10^3/cmm (157-399); Red Blood Count 4.13 10^6/uL (3.85-5.65); Red Cell Distribution Width 12.9 % (12.1-15.1); White Blood Count 10.27 10^3/uL (3.29-11.43)
--- NOTE | 2023-12-14 20:49 | ECG_ITS ---
[facility] Test Date: 2023-12-14 Pat Name: Ana Rosa Bay Department: Room: Gender: Female [employer] Consult[employer]: : 1965 Requested By: Chadwick Stevenson Order Number: [id number] Kaitlin MD: Preet Burnette M.D. Measurements Intervals [place] Rate: 78 P: 34 DC: 140 QRS: 32 QRSD: 85 T: 47 QT: 384 QTc: 438 Interpretive Statements SINUS RHYTHM Compared to ECG 12/12/2023 16:26:03 No significant changes Electronically Signed On 12-15-2023 7:51:17 CDT by Preet Burnette M.D. [id number]
[2023-12-14 20:56] VITALS: BP 151/96; PULSE 77; RESP 16; O2SAT 95
[2023-12-14] MEDS: ondansetron 2 mg/ML SDV 2 mL 4 MG IVP (20:57)
[2023-12-14 21:12] LABS: Alanine Aminotransferase 16 U/L (0-33); Albumin Level 4.8 g/dL (3.5-5.2); Alkaline Phosphatase 107 U/L (35-105); Aspartate Amino Transferase 16 U/L (0-32); Blood Urea Nitrogen 15 mg/dL (8-23); Calcium 9.3 mg/dL (8.5-10.5); Carbon Dioxide 26 mmol/L (22-29); Creatinine Clr Calc Pharmacy 50.6282; Globulin 2.1 g/dL (1.3-4.6); Glomerular Filtration Rate 50.7 mL/min (90-130); Glucose 91 mg/dL (65-115); Total Bilirubin 0.5 mg/dL (0.15-1.2); Total Protein 6.9 g/dL (6.6-8.7)
[2023-12-14 21:26] VITALS: BP 118/74; PULSE 74; RESP 19; O2SAT 95
[2023-12-14 21:38] LABS: Chloride 101 mmol/L (98-107); Osmolality Calculated 286 mOsm/kg (285-295); Sodium 138 mmol/L (136-145)
--- NOTE | 2023-12-14 21:40 | XRR_ITS ---
PROCEDURE INFORMATION: Exam: XR Chest Exam date and time: 12/14/2023 10:02 PM Age: 58 years old Clinical indication: Chest wall pain; Additional info: Pain to the left lateral chest wall/axilla area TECHNIQUE: Imaging protocol: Radiologic exam of the chest. Views: 2 views. COMPARISON: CR XR chest 1V portable [id number] 01/12/2022 10:38 AM FINDINGS: Lungs: Unremarkable. No consolidation. Pleural spaces: Unremarkable. No pleural effusion. No pneumothorax. Heart/Mediastinum: Calcified right hilar node. Bones/joints: [place] rightward midthoracic curvature. XR/XR chest 2V* [id number] IMPRESSION: No acute findings.
[2023-12-14 23:17] VITALS: BP 118/74; PULSE 73; RESP 18; O2SAT 97
[2023-12-14 23:36] VITALS: BP 118/74; PULSE 71; RESP 18; O2SAT 97
== END 2023-12-14 23:39 | disposition home or self-care (01) ==
PROVIDERS: Emergency Provider Internal Medicine; PCP Nurse Practitioner
DX: R07.89 Other chest pain (principal); F41.9 Anxiety disorder, unspecified; F17.210 Nicotine dependence, cigarettes, uncomplicated
CPT/HCPCS: 71046; 80053; 85025; 93005; 96374; 99285; J2405

== ENCOUNTER → 2023-12-20 11:06 | Outpatient (BNVA) | payer MEDICARE, SELFPAY | PROVIDERS: PCP Nurse Practitioner; Visit Provider Nurse Practitioner | DX: I10 Essential (primary) hypertension (principal); E53.8 Deficiency of other specified B group vitamins | CPT/HCPCS: 81000; 82607 ==

== ENCOUNTER → 2023-12-21 08:40 | Outpatient (BNVA) | payer MEDICARE, SELFPAY | PROVIDERS: PCP Nurse Practitioner; Visit Provider Dermatology | DX: D48.5 Neoplasm of uncertain behavior of skin (principal) | CPT/HCPCS: 11104; 11403; 12032 ==

== ENCOUNTER → 2024-02-06 09:34 | Outpatient (BNVA) | payer MEDICARE, SELFPAY | PROVIDERS: PCP Nurse Practitioner; Visit Provider Nurse Practitioner Family | DX: M79.672 Pain in left foot (principal); M25.572 Pain in left ankle and joints of left foot | CPT/HCPCS: 73610; 73630 ==

== ENCOUNTER 2024-02-14 10:06 | Outpatient (CLI) | payer MEDICARE, SELFPAY ==
--- NOTE | 2024-02-14 10:19 | US_ITS ---
WS: [id number] DIAGNOSTIC BILATERAL DIGITAL BREAST TOMOSYNTHESIS MAMMOGRAPHY WITH CAD LEFT breast ultrasound, limited HISTORY: N64.4 - Mastodynia LEFT breast pain. Family history of breast cancer. COMPARISON: 01/06/2023, 12/31/2020 TECHNIQUE: Bilateral craniocaudad, mediolateral oblique, and mediolateral views are submitted with to mosynthesis and SM. Spot compression LEFT CC and MLO. Computer aided detection utilized. Breast composition: There are scattered areas of fibroglandular density. Asymmetries in the upper out er quadrant of each breast. There is a dense asymmetry near 10:00 of the LEFT breast which does not p ersist with additional imaging. There are no abnormalities in the area of pain. LEFT breast ultrasound, limited. Ultrasound is directed to the LEFT breast in the area of pain. No abnormality is identified by ultras ound. US/US breast LT limited* [id number] IMPRESSION: BI-RADS: 2-Benign FOLLOW UP: 1 Year Follow-up
--- NOTE | 2024-02-14 10:30 | MM_ITS ---
WS: [id number] DIAGNOSTIC BILATERAL DIGITAL BREAST TOMOSYNTHESIS MAMMOGRAPHY WITH CAD LEFT breast ultrasound, limited HISTORY: N64.4 - Mastodynia LEFT breast pain. Family history of breast cancer. COMPARISON: 01/06/2023, 12/31/2020 TECHNIQUE: Bilateral craniocaudad, mediolateral oblique, and mediolateral views are submitted with to mosynthesis and SM. Spot compression LEFT CC and MLO. Computer aided detection utilized. Breast composition: There are scattered areas of fibroglandular density. Asymmetries in the upper out er quadrant of each breast. There is a dense asymmetry near 10:00 of the LEFT breast which does not p ersist with additional imaging. There are no abnormalities in the area of pain. LEFT breast ultrasound, limited. Ultrasound is directed to the LEFT breast in the area of pain. No abnormality is identified by ultras ound. MM/[place] [id number] IMPRESSION: BI-RADS: 2-Benign FOLLOW UP: 1 Year Follow-up
== END 2024-02-14 10:07 | disposition home or self-care (01) ==
LOC: RAD 10:08
PROVIDERS: PCP Nurse Practitioner; Visit Provider Nurse Practitioner
DX: N64.4 Mastodynia (principal); Z12.31 Encounter for screening mammogram for malignant neoplasm of breast; R92.323 Mammographic fibroglandular density, bilateral breasts; N64.89 Other specified disorders of breast
CPT/HCPCS: 76642; 77062; G0279

== ENCOUNTER → 2024-03-01 11:33 | Outpatient (BNVA) | payer MEDICARE, SELFPAY | PROVIDERS: PCP Nurse Practitioner; Visit Provider Nurse Practitioner | DX: M79.7 Fibromyalgia (principal); N39.8 Other specified disorders of urinary system; G43.509 Persistent migraine aura without cerebral infarction, not intractable, without status migrainosus; I10 Essential (primary) hypertension; F41.9 Anxiety disorder, unspecified; E53.8 Deficiency of other specified B group vitamins; Z12.11 Encounter for screening for malignant neoplasm of colon; Z79.899 Other long term (current) drug therapy | CPT/HCPCS: 80053; 80061; 82607 ==

== ENCOUNTER → 2024-04-04 08:39 | Outpatient (BNVA) | payer MEDICARE, SELFPAY | PROVIDERS: PCP Nurse Practitioner; Referring Provider Nurse Practitioner; Visit Provider Surgery | DX: Z12.11 Encounter for screening for malignant neoplasm of colon (principal) | CPT/HCPCS: 99024; 99204 ==

== ENCOUNTER 2024-04-17 08:57 | Day surgery (SDC) | payer MEDICARE, SELFPAY ==
--- NOTE | 2024-04-17 09:06 | P.HPUD_ITS ---
Surgery/Procedure H&P Update DATE OF PROCEDURE: April 17, 2024 DATE H&P PERFORMED: 04/04/24 H&P UPDATE INFORMATION: I have reviewed H&P completed within last 30 days, I have examined patient prior to procedure, No changes to prior documentation and H&P is in [facility] EMR on date indicated PLANNED PROCEDURE: Operation Date: 04/17/24 10:10 Proposed Procedures p [id number], G0105, Z12.11(Not Applicable) - Gene Soriano MD
[2024-04-17 09:15] VITALS: BMI 24.6
[2024-04-17 09:17] VITALS: BP 134/87; PULSE 90; RESP 18; TEMP 36.2; O2SAT 96
[2024-04-17] MEDS: sodium chloride 0.9% 1,000 ML 30 ML IV (09:19)
--- NOTE | 2024-04-17 09:30 | ANES.PREANE2 ---
Pre-Anesthetic Assessment Height/Weight: Height 1.5 m Weight 55.338 kg Temp Pulse Resp BP Pulse Ox O2 Del Method 97.2 F L 90 18 134/87 96 Room Air 04/17/24 09:17 04/17/24 09:17 04/17/24 09:17 04/17/24 09:17 04/17/24 09:17 04/17/24 09:17 Preop Diagnosis: screening Operation Date: 04/17/24 10:10 Proposed Procedures p [id number], G0105, Z12.11(Not Applicable) - Gene Soriano MD Familial anesthetic complications: none Was Beta Jake taken within 24 hours: N/A Was Clonidine taken within 24 hours: N/A Last intake: Intake Last Liquid Date 04/16/24 Last Liquid Time 23:30 Last Solid Date 04/15/24 Social Tobacco (1ppd) and No alcohol Exam alert and oriented x 3 Airway Submandibular: within normal limits Cervical ROM: within normal limits Mallampati: Class I Dentition: full History/ROS No significant history except as noted Pulmonary Chronic Obstructive Pulmonary Disease and Sleep Apnea CV/HEM Hypertension None reported Hepatic None reported Neuropsych Headache Anesthetic Plan ASA status: 2 Anesthesia: Anesthesia Evaluation, General and MAC Risk of > 500 ml blood loss (7ml/kg in children): No Medications/Allergies Home Medications Medication Instructions Recorded Confirmed Last Taken Type vit B complex 100 combo no.2 100 1 tab PO DAILY 12/19/23 04/12/24 04/11/24 History mg tablet,extended release (B-100 Complex ER) alfuzosin 10 mg tablet,extended 10 mg PO QAM #30 tabs 03/01/24 04/12/24 04/16/24 Rx release 24 hr propranolol 10 mg tablet 10 mg PO BID #60 tabs 03/01/24 04/12/24 04/12/24 Rx syringe with needle 3 mL 22 gauge #1 ea 03/01/24 04/10/24 Unknown Rx x 1 prochlorperazine maleate 10 mg 10 mg PO DAILY 04/04/24 04/12/24 04/12/24 History tablet (Compazine) bupropion HCl 150 mg 24 hr tablet, 150 mg PO DAILY 30 days #30 tabs 04/05/24 04/12/24 04/12/24 Rx extended release bupropion HCl 300 mg 24 hr tablet, 300 mg PO QAM 30 days #30 tabs 04/05/24 04/12/24 04/12/24 Rx extended release (Wellbutrin XL) duloxetine 30 mg capsule,delayed 90 mg (3 x 30 mg) PO DAILY 30 days 04/05/24 04/12/24 04/12/24 Rx release #90 caps mirtazapine 30 mg tablet (Remeron) 30 mg PO .HS #30 tabs 04/05/24 04/12/24 04/11/24 Rx tizanidine 4 mg tablet 2 mg PO BID 04/05/24 04/12/24 04/12/24 History topiramate 50 mg tablet (Topamax) 50 mg PO BID #60 tabs 04/05/24 04/12/24 04/12/24 Rx aripiprazole 10 mg tablet (Abilify) 10 mg PO DAILY 04/12/24 04/12/24 04/12/24 History cyanocobalamin (vitamin B-12) 1,000 mcg IM .EVER 4 WEEKS 04/12/24 04/17/24 Unknown History 1,000 mcg/mL injection solution Allergies Allergy/AdvReac Type Severity Reaction Status Date / Time bacitracin Allergy Unknown Verified 04/17/24 09:14 [From Triple Antibiotic] carbamazepine [From Tegretol] Allergy Unknown Verified 04/17/24 09:14 divalproex sodium Allergy Unknown Verified 04/17/24 09:14 [From Depakote] ketorolac [From Toradol] Allergy Unknown Verified 04/17/24 09:14 lithium Allergy Unknown Verified 04/17/24 09:14 magnesium sulfate Allergy ALGY-Hives Verified 04/17/24 09:14 neomycin Allergy Unknown Verified 04/17/24 09:14 [From Triple Antibiotic] nitrofurantoin Allergy Unknown Verified 04/17/24 09:14 [From Macrodantin] olanzapine [From Zyprexa] Allergy Unknown Verified 04/17/24 09:14 penicillin G Allergy Unknown Verified 04/17/24 09:14 polymyxin B Allergy Unknown Verified 04/17/24 09:14 [From Triple Antibiotic] quetiapine [From Seroquel] Allergy Unknown Verified 04/17/24 09:14 Sulfa (Sulfonamide Allergy Unknown Verified 04/17/24 09:14 Antibiotics) tramadol [From Ultram] Allergy Unknown Verified 04/17/24 09:14 flexaril Allergy Intermediate ADR-Anxiety Uncoded 04/17/24 09:14 verapamil Allergy Intermediate ADR-Faintin Uncoded 04/17/24 09:14 g Current Medications Generic Name Dose Route Start Last Admin Trade Name Freq PRN Reason Stop Dose Admin Sodium Chloride 1,000 mls @ 30 mls/hr 04/17/24 09:00 04/17/24 09:19 Sodium Chloride 0.9% IV 04/18/24 08:59 30 mls/hr .Q24H DIETER Administration PFSH Anesthesia Medical History Enrolled in chronic care management please do not remove from active On combination antipsychotic drug therapy Overdose of antipsychotic Tobacco use disorder Urolithiasis Migraine aura, persistent GERD (gastroesophageal reflux disease) Psychiatric care History of nonmelanoma skin cancer Neurogenic bladder Renal calculi Voiding dysfunction Family history of colon cancer Borderline personality disorder Post-traumatic stress disorder, chronic Surgical History Status post laparoscopic cholecystectomy (02/11/22) History of esophagogastroduodenoscopy 2 years ago History of colonoscopy 5 years ago History of tonsillectomy History of lumbar surgery History of basal cell cancer History of hysterectomy History of Family History Mother , at age 72 Parkinson disease Cancer colon Father , at age 60 Cancer brain and liver Social History Smoking and tobacco/nicotine status: current every day tobacco/nicotine user cigarettes Years cigarettes smoked: 20 Second hand smoke exposure: Yes Alcohol intake: never Substance/Drug Use: never Caregiver/support person: No Lives independently: Yes Household members: spouse Housing: House Marital status: Number of children: 2 service: No Current occupational status: disabled Current occupational exposures/hazards: No Do you think of yourself as: Straight/Heterosexual Current gender identity: Female Data Anesthesia Cardiac Studies: No Data to Display
[2024-04-17 10:11] VITALS: BP 100/67; PULSE 64; RESP 18; TEMP 36.1; O2SAT 100
[2024-04-17 10:20] VITALS: BP 126/81; PULSE 63; RESP 18; O2SAT 98
[2024-04-17 10:30] VITALS: BP 150/83; PULSE 61; RESP 18; O2SAT 98
--- NOTE | 2024-04-17 10:45 | ANE.PACU2 ---
Inpatient post-anesthesia follow up: Airway intact: Yes Vital signs: Temperature 97.0 F Pulse Rate 61 Respiratory Rate 18 Blood Pressure 150/83 Pulse Oximetry 98 Oxygen Delivery Me thod Room Air Oxygen Flow Rate Fraction of Inspir ed Oxygen Hydration adequate: Yes Nausea and vomiting: No Pain level: 1 Mental status: Baseline
== END 2024-04-17 10:45 | disposition home or self-care (01) ==
PROVIDERS: PCP Nurse Practitioner; Visit Provider Surgery
PROC: 0DJD8ZZ Inspection of Lower Intestinal Tract, Via Natural or Artificial Opening Endoscopic (ICD-10-PCS; CPT 45378; principal; 2024-04-17 10:10)
DX: Z12.11 Encounter for screening for malignant neoplasm of colon (principal); K57.30 Diverticulosis of large intestine without perforation or abscess without bleeding; F17.210 Nicotine dependence, cigarettes, uncomplicated; J44.9 Chronic obstructive pulmonary disease, unspecified; G47.30 Sleep apnea, unspecified; I10 Essential (primary) hypertension; K21.9 Gastro-esophageal reflux disease without esophagitis
CPT/HCPCS: G0121; J2704; J7030

== ENCOUNTER → 2024-06-05 10:11 | Outpatient (BNVA) | payer MEDICARE, MEDICAID, SELFPAY | PROVIDERS: PCP Nurse Practitioner; Visit Provider Nurse Practitioner Family | DX: D22.5 Melanocytic nevi of trunk (principal); L91.8 Other hypertrophic disorders of the skin; L82.1 Other seborrheic keratosis; L81.4 Other melanin hyperpigmentation; L57.8 Other skin changes due to chronic exposure to nonionizing radiation | CPT/HCPCS: 11102; 17110; 99213 ==

== ENCOUNTER → 2024-08-02 09:02 | Outpatient (BNVA) | payer MEDICARE, SELFPAY | PROVIDERS: PCP Nurse Practitioner; Visit Provider Nurse Practitioner | DX: I10 Essential (primary) hypertension (principal); E53.8 Deficiency of other specified B group vitamins | CPT/HCPCS: 80053; 82607; 83735; 84443; 85025 ==

== ENCOUNTER → 2024-08-21 12:00 | Outpatient (BNVA) | payer MEDICARE, MEDICAID, SELFPAY | PROVIDERS: PCP Nurse Practitioner; Visit Provider Clinical Nurse Specialist Adult Health | DX: N39.0 Urinary tract infection, site not specified (principal); R10.11 Right upper quadrant pain | CPT/HCPCS: 81000; 87086 ==

== ENCOUNTER 2024-08-28 10:47 | Emergency (ER) | payer MEDICARE, SELFPAY ==
[2024-08-28 11:16] VITALS: BP 161/98; PULSE 71; RESP 18; TEMP 36.6; O2SAT 100; BMI 25.4
--- NOTE | 2024-08-28 11:21 | ED_ITS ---
HPI - Female Genitourinary 2 General: Chief complaint: Back Pain/Injury Stated complaint: UTI complications and infection Time Seen by Provider: 08/28/24 11:02 Source: patient Mode of arrival: ambulatory Limitations: no limitations History of Present Illness: Patient is a 59-year-old female who presents to the ED today with a complaint of burning with urination, urgency, frequency, lower back pain. She was reportedly diagnosed with a UTI and placed on Cefdinir. Microbiology of her recent UA was reviewed and urine grew strep agalactiae. Patient states she is not any better after antibiotics-has one dose/day left of the Cefdinir. Has had chronic urinary symptoms before and used to see Dr. Rinaldi. Chronically on Alfuzosin. States her kidneys and back hurt. No difficulty ambulating. No radicular symptoms. Having some nausea. Vitals are normal upon arrival to ED. MD elicited complaint: dysuria and UTI Onset (ago): day(s) Location of symptoms: suprapubic Severity: moderate Quality of pain: burning Vaginal discharge: none Vaginal bleeding: none Urinary symptoms: Dysuria, Frequency and Urgency Exacerbating factors: none Relieving factors: none Associated symptoms: Reports abdominal pain; Deny headache(s) or nausea Treatment prior to arrival: none Sexual activity: No Patient : No Related Data Home Medications Medication Instructions Recorded Confirmed vit B complex 100 combo no.2 100 1 tab PO DAILY 12/19/23 08/28/24 mg tablet,extended release (B-100 Complex ER) tizanidine 4 mg tablet 2 mg PO BID 04/05/24 08/28/24 Previous Rx's Medication Instructions Recorded topiramate 50 mg tablet (Topamax) 50 mg PO BID #60 tabs 05/10/24 duloxetine 30 mg capsule,delayed 90 mg (3 x 30 mg) PO DAILY 30 days 06/26/24 release #90 caps mirtazapine 30 mg tablet (Remeron) 30 mg PO .HS #30 tabs 06/29/24 alfuzosin 10 mg tablet,extended 10 mg PO QAM #30 tabs 08/02/24 release 24 hr cyanocobalamin (vitamin B-12) 1,000 mcg IM .COMPLEX #1 mL 08/02/24 1,000 mcg/mL injection solution propranolol 10 mg tablet 10 mg PO BID #60 tabs 08/02/24 aripiprazole 15 mg tablet (Abilify) 15 mg PO DAILY #30 tabs 08/06/24 cyproheptadine 4 mg tablet 4 mg PO .HS #30 tabs 08/06/24 bupropion HCl 150 mg 24 hr tablet, 150 mg PO DAILY 30 days #30 tabs 08/09/24 extended release bupropion HCl 300 mg 24 hr tablet, 300 mg PO QAM 30 days #30 tabs 08/09/24 extended release (Wellbutrin XL) cefdinir 300 mg capsule 300 mg PO Q12H #14 caps 08/21/24 amoxicillin 500 mg capsule 500 mg PO TID 7 days #21 caps 08/28/24 ondansetron 4 mg disintegrating 4 mg PO Q8H PRN nausea and 08/28/24 tablet vomiting #14 tabs Allergies Allergy/AdvReac Type Severity Reaction Status Date / Time cyclobenzaprine Allergy Intermediate ADR-Anxiety Verified 08/21/24 11:23 [From Flexeril] verapamil Allergy Intermediate ADR-Faintin Verified 08/21/24 11:23 g bacitracin Allergy Unknown Verified 08/21/24 11:23 [From Triple Antibiotic] carbamazepine [From Tegretol] Allergy Unknown Verified 08/21/24 11:23 divalproex sodium Allergy Unknown Verified 08/21/24 11:23 [From Depakote] ketorolac [From Toradol] Allergy Unknown Verified 08/21/24 11:23 lithium Allergy Unknown Verified 08/21/24 11:23 magnesium sulfate Allergy ALGY-Hives Verified 08/21/24 11:23 neomycin Allergy Unknown Verified 08/21/24 11:23 [From Triple Antibiotic] nitrofurantoin Allergy Unknown Verified 08/21/24 11:23 [From Macrodantin] olanzapine [From Zyprexa] Allergy Unknown Verified 08/21/24 11:23 penicillin G Allergy Unknown Verified 08/21/24 11:23 polymyxin B Allergy Unknown Verified 08/21/24 11:23 [From Triple Antibiotic] quetiapine [From Seroquel] Allergy Unknown Verified 08/21/24 11:23 Sulfa (Sulfonamide Allergy Unknown Verified 08/21/24 11:23 Antibiotics) tramadol [From Ultram] Allergy Unknown Verified 08/21/24 11:23 equate nicotine patch Allergy Intermediate ALGY-Rash Uncoded 08/21/24 11:23 Review of Systems 2 Const: Reports: fever(s) (subjective); Denies: chills, body aches, fatigue or malaise Card: Denies: chest pain Resp: Denies: dyspnea GI: Reports: abdominal pain; Denies: nausea, vomiting or diarrhea : Reports: flank pain, dysuria, urinary frequency and urinary urgency Musc: Reports: back pain; Denies: neck pain, extremity pain, extremity swelling, joint pain or joint swelling Skin/Breast: Denies: rash Neuro: Denies: headache(s), numbness in extremities, weakness in extremities, sensory changes or dizziness PFSH ED 2 PFSH: Medical History Somatic symptom disorder Bipolar I disorder Enrolled in chronic care management please do not remove from active On combination antipsychotic drug therapy Overdose of antipsychotic Tobacco use disorder Urolithiasis Migraine aura, persistent GERD (gastroesophageal reflux disease) Psychiatric care History of nonmelanoma skin cancer Neurogenic bladder Renal calculi Voiding dysfunction Family history of colon cancer Borderline personality disorder Post-traumatic stress disorder, chronic Surgical History History of esophagogastroduodenoscopy 2 years ago History of colonoscopy 5 years ago History of tonsillectomy History of lumbar surgery History of hysterectomy History of Status post laparoscopic cholecystectomy (02/11/22) History of basal cell cancer Family History Mother , at age 72 Parkinson disease Cancer colon Father , at age 60 Cancer brain and liver Social History Smoking and tobacco/nicotine status: current every day tobacco/nicotine user cigarettes Years cigarettes smoked: 20 Second hand smoke exposure: Yes Alcohol intake: never Substance/Drug Use: never Caregiver/support person: No Lives independently: Yes Household members: spouse Housing: House Marital status: Number of children: 2 service: No Current occupational status: disabled Current occupational exposures/hazards: No Do you think of yourself as: Straight/Heterosexual Current gender identity: Female Physical Exam 2 Const: COMMON NORMALS: no acute distress, average body habitus, patient oriented x3, no limitations, healthy appearing, alert and well nourished G ENERAL APPEARANCE: cooperative ORIENTATION/CONSCIOUSNESS: Yes awake, Yes oriented to person, Yes oriented to place and Yes oriented to time Neck/C-Spine: COMMON NORMALS: full ROM and no meningeal signs Resp: COMMON NORMALS: normal respiratory effort and clear to auscultation bilaterally AUSCULTATION: clear to auscultation bilaterally Cardio: COMMON NORMALS: regular rate and regular rhythm RATE: regular rate RHYTHM: regular rhythm GI: COMMON NORMALS: Normal to inspection, nondistended, normoactive bowel sounds present, Soft to palpation, No hepatosplenomegaly present and no masses INSPECTION: Yes normal to inspection AUSCULTATION: Yes normoactive bowel sounds PALPATION: Yes Soft to palpation, Yes Tenderness to palpation present (GI) (lower abdomen/suprapubic), No Guarding due to palpation present (GI), No Rigid due to palpation and Yes No hepatosplenomegaly present : COMMON NORMALS: Yes no CVA tenderness BLADDER/KIDNEY EXAM: Yes no CVA tenderness Back/Pelvis: COMMON NORMALS: no CVA tenderness, thoracic and lumbar spine normal to inspection, no thoracic nor lumbar tenderness, thoraco-lumbar ROM normal and straight leg raise negative bilaterally LUMBAR SPINE/LOWER BACK: Y es paraspinal muscle tenderness (across lower back) PELVIS: No sciatic notch tenderness SACRUM: no tenderness COCCYX: no tenderness Extremity: GENERAL: Yes normal exam except as noted Neuro: COMMON NORMALS: patient oriented x3, moves all extremities, no focal motor deficits, no sensory deficits noted and gait normal S ENSORIUM/ORIENTATION: Yes alert, Yes oriented to person, Yes oriented to place and Yes oriented to time MENINGEAL SIGNS: Yes no meningeal signs Skin: COMMON NORMALS: no rashes or lesions noted GENERAL SKIN EXAM: no rashes or lesions noted Course 2 Vital Signs: Vital signs: Vital Signs Temperature 97.9 F 08/28/24 11:16 Pulse Rate 71 08/28/24 11:16 Respiratory Rate 18 08/28/24 11:16 Blood Pressure 161/98 08/28/24 11:16 Pulse Oximetry 98 08/28/24 12:20 Oxygen Delivery Me thod Room Air 08/28/24 12:20 [facility] - Female Medical Decision Making Patient is a 59-year-old female who presents to ED today with a complaint of burning with urination, urinary frequency and urgency as well as some low back pain. She has recently been treated with cefdinir without relief. Recent UA culture grew strep agalactiae that was sensitive to cephalosporins. During her stay here, her vitals have been stable. Her blood work showing a normal white count. Chemistry overall is nonactionable. Her UA looks fairly benign. At one point during her stay she developed heartburn chest pain. EKG and CXR obtained and these are unremarkable. She was given GI cocktail which did take away her pain. Offered her baseline troponin/repeat 2-hour troponin but she declined and wants to go home. Will place her on amoxicillin for strep agalactiae coverage as she is still symptomatic. She has no flank pain clinically. I do not suspect any form of bacteremia, pyelonephritis. I do not have any suspicion for emergent or life-threatening etiology for her back pain including discitis, dissection, aneurysm. I would have a low suspicion for acute coronary syndrome of her chest pain given that it was alleviated with a GI cocktail. I would like her to follow-up with primary care later this week. Return to ED precautions given. Medical Records I reviewed the patient's medical records. Lab Data I reviewed the patient's lab results. 08/28/24 11:25 08/28/24 11:25 Radiology Impressions Chest X-Ray 08/28/24 12:12 IMPRESSION: Stable chest without acute abnormality. Laboratory Results WBC 5.43 10^3/uL (3.29-11.43) 08/28/24 11:25 RBC 4.06 10^6/uL (3.85-5.65) 08/28/24 11:25 Hgb 12.30 g/dL (11.27-16.99) 08/28/24 11:25 Hct 37.9 % (36-47) 08/28/24 11:25 MCV 93.3 fl (85-98) 08/28/24 11:25 MCH 30.3 pg (27-33) 08/28/24 11:25 MCHC 32.5 g/dL (30-55) 08/28/24 11:25 RDW 13.1 % (12.1-15.1) 08/28/24 11:25 Plt Count 295 10^3/cmm (157-399) 08/28/24 11:25 MPV 10.1 fL (7.4-10.4) 08/28/24 11:25 Neut % (Auto) 51.6 % 08/28/24 11:25 Lymph % (Auto) 40.7 % 08/28/24 11:25 [place] % (Auto) 5.0 % 08/28/24 11:25 Eos % (Auto) 1.7 % 08/28/24 11:25 Baso % (Auto) 0.6 % 08/28/24 11:25 Neut # (Auto) 2.81 10^3/uL (1.8-7.7) 08/28/24 11:25 Lymph # (Auto) 2.2 10^3/uL (0.8-4.8) 08/28/24 11:25 [place] # (Auto) 0.3 10^3/uL (0.2-0.9) 08/28/24 11:25 Eos # (Auto) 0.1 10^3/uL (0.0-0.8) 08/28/24 11:25 Baso # (Auto) 0.0 10^3/uL (0.0-0.1) 08/28/24 11:25 Nucleated RBC % (auto) 0 % 08/28/24 11:25 Nucleated RBCs # 0.0 /100WBC 08/28/24 11:25 Sodium 134 mmol/L (136-145) L 08/28/24 11:25 Potassium 3.7 mmol/L (3.5-5.1) 08/28/24 11:25 Chloride 99 mmol/L (98-107) 08/28/24 11:25 Carbon Dioxide 23 mmol/L (22-29) 08/28/24 11:25 Anion Gap 15.7 (5-19) 08/28/24 11:25 BUN 6 mg/dL (8-23) L 08/28/24 11:25 Creatinine 0.7 mg/dL (0.5-0.9) 08/28/24 11:25 GFR Calculation 85.1 mL/min (90-130) L 08/28/24 11:25 Glucose 94 mg/dL (65-115) 08/28/24 11:25 Calculated Osmolality 275 mOsm/kg (285-295) L 08/28/24 11:25 Calcium 8.9 mg/dL (8.5-10.5) 08/28/24 11:25 Total Bilirubin 0.3 mg/dL (0.15-1.2) 08/28/24 11:25 AST 15 U/L (0-32) 08/28/24 11:25 ALT 13 U/L (0-33) 08/28/24 11:25 Alkaline Phosphatase 115 U/L (35-105) H 08/28/24 11:25 Total Protein 6.6 g/dL (6.6-8.7) 08/28/24 11:25 Albumin 4.3 g/dL (3.5-5.2) 08/28/24 11:25 Globulin 2.3 g/dL (1.3-4.6) 08/28/24 11:25 Urine Color Yellow (Yellow) 08/28/24 11:10 Urine Appearance Clear (CLEAR) 08/28/24 11:10 Urine pH 7.0 (5-7) 08/28/24 11:10 Ur Specific [place] 1.002 (1.005-1.030) L 08/28/24 11:10 Urine Protein Negative (Negative) 08/28/24 11:10 Urine Glucose (UA) Negative (Normal) 08/28/24 11:10 Urine Ketones Negative (Negative) 08/28/24 11:10 Urine Blood Negative (Negative) 08/28/24 11:10 Urine Nitrate Negative (Negative) 08/28/24 11:10 Urine Bilirubin Negative (Negative) 08/28/24 11:10 Urine Urobilinogen 0.2 mg/dL (Negative) 08/28/24 11:10 Ur Leukocyte Esterase Negative (Negative) 08/28/24 11:10 Urine RBC 0-2 /hpf (0-2) 08/28/24 11:10 Urine WBC 0-5 /hpf (0-5) 08/28/24 11:10 Ur Squamous Epith Cells 0-5 /hpf (0-5) 08/28/24 11:10 Amorphous Sediment Not Reportable 08/28/24 11:10 Urine Bacteria None seen /hpf (NONE) 08/28/24 11:10 Hyaline Casts 0-4 /lpf H 08/28/24 11:10 All radiology interpretation(s) finalized by discharge Discharge Plan Discharge Patient Disposition: Home Clinical Impression: Urinary tract infection due to Streptococcus agalactiae Condition: Stable Prescriptions: New amoxicillin 500 mg capsule 500 mg PO TID 7 Days Qty: 21 0RF ondansetron 4 mg tablet,disintegrating 4 mg PO Q8H PRN (Reason: nausea and vomiting) Qty: 14 0RF Discontinued prochlorperazine maleate [Compazine] 10 mg tablet 10 mg PO DAILY PRN (Reason: Nausea) meclizine 25 mg tablet 25 mg PO BID PRN (Reason: dizziness) Qty: 30 2RF Rx Instructions: nausea and dizziness No Action topiramate [Topamax] 50 mg tablet 50 mg PO BID Qty: 60 2RF propranolol 10 mg tablet 10 mg PO BID Qty: 60 5RF alfuzosin 10 mg tablet extended release 24 hr 10 mg PO QAM Qty: 30 5RF cyanocobalamin (vitamin B-12) 1,000 mcg/mL solution 1,000 mcg IM .COMPLEX Qty: 1 2RF Rx Instructions: 1,000 mcg intramuscularly every 8 weeks; cefdinir 300 mg capsule 300 mg PO Q12H Qty: 14 0RF B-100 Complex 100 mg tablet extended release 1 tab PO DAILY tizanidine 4 mg tablet 2 mg PO BID aripiprazole [Abilify] 15 mg tablet 15 mg PO DAILY Qty: 30 1RF duloxetine 30 mg capsule,delayed release(DR/EC) 90 mg PO DAILY 30 Days Qty: 90 1RF mirtazapine [Remeron] 30 mg tablet 30 mg PO .HS Qty: 30 1RF cyproheptadine 4 mg tablet 4 mg PO .HS Qty: 30 1RF bupropion HCl [Wellbutrin XL] 300 mg tablet extended release 24 hr 300 mg PO QAM 30 Days Qty: 30 1RF bupropion HCl 150 mg tablet extended release 24 hr 150 mg PO DAILY 30 Days Qty: 30 1RF Discharge Orders: Discharge ED (Routine); Ordered 08/28/24 Ordered By: Saniya Holland Referrals: Frederick Stark, KYLEC [Primary Care Provider] - Patient Instructions: Urinary Tract Infection in Women (DC) Activity Restrictions/Additional Instructions: I would like you to follow-up with your primary care provider later this week for re-evaluation. You need to return to the emergency department for worsening back pain, fevers, chest pain, severe abdominal pain or flank pain, repetitive episodes of vomiting, inability to tolerate your antibiotics, generally feeling worse or unwell, or any other concerns you may have. Coding Level of Care Code ED Manager [employer] for [employer]
[2024-08-28 11:31] LABS: Bilirubin Urine Negative (Negative); Blood Urine Negative (Negative); Glucose Urine UA Negative (Normal); Ketones Urine Negative (Negative); Leukocyte Esterase Urine Negative (Negative); Nitrate Urine Negative (Negative); Protein Urine Negative (Negative); Specific Gravity, Urine 1.002 (1.005-1.030); Urine Appearance Clear (CLEAR); Urine Color Yellow (Yellow); Urobilinogen Urine 0.2 mg/dL (Negative)
[2024-08-28] MEDS: ondansetron 2 mg/ML SDV 2 mL 4 MG IVP (11:32)
[2024-08-28] MEDS: morphine 4 mg/mL SDV 1 mL IVP ×2 (11:32→12:55)
[2024-08-28 11:36] LABS: Add Urine Microscopic? YES; Bacteria Urine None Seen /hpf; Hyaline Casts Urine 0-4 /lpf; RBC Urine 0-2 /hpf (0-2); Squamous Epithelial Cell Urine 0-5 /hpf (0-5); WBC Urine 0-5 /hpf (0-5)
[2024-08-28 11:57] LABS: Basophils % 0.6 %; Eosinophils # 0.1 10^3/uL (0.0-0.8); Eosinophils % 1.7 %; Hematocrit 37.9 % (36-47); Lymphocytes # 2.2 10^3/uL (0.8-4.8); Lymphocytes % 40.7 %; Mean Corpuscular HGB Conc 32.5 g/dL (30-55); Mean Corpuscular Hemoglobin 30.3 pg (27-33); Mean Corpuscular Volume 93.3 fl (85-98); Mean Platelet Volume 10.1 fL (7.4-10.4); Monocytes # 0.3 10^3/uL (0.2-0.9); Neutrophils # 2.81 10^3/uL (1.8-7.7); Neutrophils % 51.6 %; Nucleated Red Blood Cells % 0 %; Platelet Count 295 10^3/cmm (157-399); Red Blood Count 4.06 10^6/uL (3.85-5.65); Red Cell Distribution Width 13.1 % (12.1-15.1); White Blood Count 5.43 10^3/uL (3.29-11.43)
--- NOTE | 2024-08-28 12:00 | ECG_ITS ---
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 [email or web address]
--- NOTE | 2024-08-28 12:12 | XR_ITS ---
WS: [id number] XR chest 1V portable [id number] REASON FOR EXAM: chest pain FINDINGS: The chest is unchanged compared to 12/14/2023. Mild tortuosity of the thoracic aorta. Normal heart size. Calcified granulomas disease bilaterally. Moderate dextroscoliosis of the thoracic spine. XR/XR chest 1V portable [id number] IMPRESSION: Stable chest without acute abnormality.
[2024-08-28 12:17] LABS: Alanine Aminotransferase 13 U/L (0-33); Albumin Level 4.3 g/dL (3.5-5.2); Alkaline Phosphatase 115 U/L (35-105); Anion Gap 15.7 (5-19); Aspartate Amino Transferase 15 U/L (0-32); Blood Urea Nitrogen 6 mg/dL (8-23); Calcium 8.9 mg/dL (8.5-10.5); Carbon Dioxide 23 mmol/L (22-29); Chloride 99 mmol/L (98-107); Creatinine Clr Calc Pharmacy 76.1473; Globulin 2.3 g/dL (1.3-4.6); Glomerular Filtration Rate 85.1 mL/min (90-130); Glucose 94 mg/dL (65-115); Osmolality Calculated 275 mOsm/kg (285-295); Potassium 3.7 mmol/L (3.5-5.1); Sodium 134 mmol/L (136-145); Total Bilirubin 0.3 mg/dL (0.15-1.2); Total Protein 6.6 g/dL (6.6-8.7)
[2024-08-28 12:20] VITALS: O2SAT 98
[2024-08-28] MEDS: lidocaine 2% viscous 15 ML, aluminum-mag hydrox-simethicon 30 ML, sucralfate oral liq 1 GM PO (12:28)
[2024-08-28 12:55] VITALS: RESP 16; O2SAT 96
[2024-08-28] MEDS: diphenhydrAMINE 50 mg/mL SDV 1mL 25 MG IVP (13:40)
== END 2024-08-28 14:01 | disposition home or self-care (01) ==
PROVIDERS: Emergency Medicine; Emergency Provider Physician Assistant; PCP Nurse Practitioner
DX: N39.0 Urinary tract infection, site not specified (principal); B95.1 Streptococcus, group B, as the cause of diseases classified elsewhere; F17.210 Nicotine dependence, cigarettes, uncomplicated
CPT/HCPCS: 36415; 71045; 80053; 81001; 85025; 93005; 96374; 96375; 96376; 99285; J1200; J2270; J2405

== ENCOUNTER → 2024-09-06 10:32 | Outpatient (BNVA) | payer MEDICARE, SELFPAY | PROVIDERS: PCP Nurse Practitioner; Visit Provider Clinical Nurse Specialist Adult Health | DX: N39.0 Urinary tract infection, site not specified (principal); N30.20 Other chronic cystitis without hematuria | CPT/HCPCS: 81000; 87086; 87491; 87591; 87661 ==

== ENCOUNTER → 2025-01-23 13:38 | Outpatient (BNVA) | payer MEDICARE, MEDICAID, OTHER, SELFPAY | PROVIDERS: PCP Nurse Practitioner; Visit Provider Nurse Practitioner | DX: N39.8 Other specified disorders of urinary system (principal) | CPT/HCPCS: 81000 ==

== ENCOUNTER → 2025-01-28 09:35 | Outpatient (BNVA) | payer MEDICARE, SELFPAY | PROVIDERS: PCP Nurse Practitioner; Visit Provider Nurse Practitioner | DX: M79.671 Pain in right foot (principal) | CPT/HCPCS: 73630 ==

== ENCOUNTER 2025-03-05 10:22 | Outpatient (CLI) | payer MEDICARE, MEDICAID, SELFPAY ==
--- NOTE | 2025-03-05 10:20 | MM_ITS ---
WS: [id number] BILATERAL 3D TOMOSYNTHESIS DIGITAL SCREENING MAMMOGRAPHY WITH CAD CLINICAL INFORMATION: Z12.31 - Encounter for screening mammogram for malignant ... HISTORY: Screening mammogram. No current complaints. COMPARISON: 2023 TECHNIQUE: Bilateral CC and MLO views. FINDINGS: The breasts are composed of heterogeneous fibroglandular density tissue, which can limit the detection of small underlying mass lesions. No suspicious mass, asymmetry, calcifications, or architectural distortion. No evidence of malignancy. Stable intramammary lymph node LEFT breast MM/MM scr tomosynthesis [id number] IMPRESSION: DENSITY: The breasts are heterogeneously dense, which may obscure small masses. BI-RADS: 2 - Benign FOLLOW UP: 1 Year Follow-up Recommend return to annual screening mammography.
== END 2025-03-05 10:23 | disposition home or self-care (01) ==
LOC: MOBLMAM 10:23
PROVIDERS: PCP Nurse Practitioner; Visit Provider Nurse Practitioner
DX: Z12.31 Encounter for screening mammogram for malignant neoplasm of breast (principal); R92.333 Mammographic heterogeneous density, bilateral breasts; R59.0 Localized enlarged lymph nodes
CPT/HCPCS: 77063; 77067

== ENCOUNTER → 2025-03-13 14:34 | Outpatient (BNVA) | payer MEDICARE, MEDICAID, SELFPAY | PROVIDERS: PCP Nurse Practitioner; Visit Provider Nurse Practitioner | DX: K21.9 Gastro-esophageal reflux disease without esophagitis (principal) | CPT/HCPCS: 81000 ==

== ENCOUNTER → 2025-03-14 09:50 | Outpatient (BNVA) | payer MEDICARE, MEDICAID, SELFPAY | PROVIDERS: PCP Nurse Practitioner; Visit Provider Nurse Practitioner | DX: E53.8 Deficiency of other specified B group vitamins (principal); Z79.899 Other long term (current) drug therapy | CPT/HCPCS: 80053; 80061; 82607; 83036 ==

== ENCOUNTER 2025-04-04 14:08 | Outpatient (CLI) | payer MEDICARE, SELFPAY ==
--- NOTE | 2025-04-04 14:15 | USCV_ITS ---
Ana Rosa Bay Age: 59 Gender: F : 1965 Exam Date: 04/04/2025 14:23 Ordering Phys: Kendall Taylor NP Technologist: USR Exam Location: [facility] [place]_ Indication: bilat edema PROCEDURES: The venous duplex Doppler examination of both lower extremities was performed in the standard fashion. FINDINGS: Normal 2-D Doppler and augmentation and compressibility throughout the lower extremity venous structures. Additional imaging through the proximal calf veins also reveals no thrombus. Limited evaluation of the greater saphenous vein is patent with no thrombus. CONCLUSIONS No evidence of left lower extremity DVT. No evidence of right lower extremity DVT. Naldo Harper MD (Electronically Signed) Final Date: 04 April 2025 15:19 S
== END 2025-04-04 14:09 | disposition home or self-care (01) ==
LOC: RAD 14:09
PROVIDERS: PCP Nurse Practitioner; Visit Provider Clinical Nurse Specialist Adult Health
DX: M79.89 Other specified soft tissue disorders (principal)
CPT/HCPCS: 93970

== ENCOUNTER → 2025-06-05 10:28 | Outpatient (BNVA) | payer MEDICARE, SELFPAY | PROVIDERS: PCP Nurse Practitioner; Visit Provider Nurse Practitioner Family | DX: L82.1 Other seborrheic keratosis (principal); L81.4 Other melanin hyperpigmentation; L57.8 Other skin changes due to chronic exposure to nonionizing radiation; Z08 Encounter for follow-up examination after completed treatment for malignant neoplasm; Z85.828 Personal history of other malignant neoplasm of skin; L72.0 Epidermal cyst; L82.0 Inflamed seborrheic keratosis; L53.8 Other specified erythematous conditions; Z78.9 Other specified health status; R20.8 Other disturbances of skin sensation; D48.5 Neoplasm of uncertain behavior of skin | CPT/HCPCS: 10060; 11102; 17110; 99213 ==

== ENCOUNTER → 2025-06-06 15:07 | Outpatient (BNVA) | payer MEDICARE, SELFPAY | PROVIDERS: PCP Nurse Practitioner; Visit Provider Nurse Practitioner | DX: R10.2 Pelvic and perineal pain (principal) | CPT/HCPCS: 81000 ==